=== PATIENT | male | born 1970 | race Caucasian/White ===

== ENCOUNTER 2020-11-02 00:43 | Emergency (ER) | payer OTHER, SELFPAY ==
--- NOTE | 2020-11-02 00:57 | ED_ITS ---
HPI - Alcohol General Stated Complaint: etoh Time Seen by Provider: 11/02/20 00:52 Source: EMS Mode of arrival: EMS Limitations: other (Intoxicated) History of Present Illness HPI narrative: Patient was found by the [employer], patient stated that he was waiting for the store to open, which will occur in approximately 8 hours. Patient is intoxicated, was brought to the emergency room by EMS. Patient denies falling, no headache, no injuries. Patient is screaming, belligerent. Related Data Allergies Allergy/AdvReac Type Severity Reaction Status Date / Time No Known Allergies Allergy Verified 11/02/20 01:02 Review of Systems Review of Systems: Yes Other (Uncooperative) [facility] Past Medical History Medical History (Updated 11/02/20 @ 01:01 by Ysabel Burris MD) Acute alcohol intoxication Polysubstance abuse Physical Exam Const: Other: Appearance: Alert. Belligerent, uncooperative Eyes: Pupils equal, round and reactive to light. ENT: Pharynx normal. Neck: Normal inspection. Neck supple. No lymph nodes noted. No crepitus CVS: Normal heart rate and rhythm. Pulses normal. Normal S1 and S2 Respiratory: No respiratory distress. Breath sounds normal. No Wheezing. No rales Abdomen: Soft and nontender. No rigidity. No distention. good BS x4 Skin: Skin warm and dry. Normal skin color. Normal skin turgor. Extremities: No lower extremity edema.No Lacerations. No Rash Neuro: Cranial nerves grossly 2-12 intact No motor deficit. No sensory deficit. Moving all extermities. No slurred speech. Course Course Course Narrative: Patient trying to light cigarettes in his room, combative because he was told that he can not smoke in his room or hospital property. Patient is unwilling to change management specialist to hospital clothes, when patient was walked to the bathroom, he was pulling heroin bundles out of his pants. Patient yelling screaming, being very belligerent to staff and security. Patient wanting to leave. Discussed with the patient that he can stay here and sleep until he is sober versus being discharged with police department. Patient continues being belligerent, uncooperative, PD was called Discharge Plan Discharge Clinical Impression: Alcohol intoxication Patient Disposition: Xfer Other Transfer Details: Discharge with police department Instructions: Abuse of Alcohol (ED) Additional Instructions: Please follow-up with your primary care physician tomorrow. If you have any worsening or new symptoms, please return to the emergency room or call 911
[2020-11-02 01:02] VITALS: BP 95/55; PULSE 77; RESP 18; O2SAT 99; BMI 24.0
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
--- NOTE | 2020-11-02 01:31 | PC.NURSE ---
pt combative on arrival, deemed medically stable and dc to police department d/t verbal aggression and lack of medical needs
== END 2020-11-02 01:18 | disposition other institution (70) ==
LOC: HO.ED 01:06
PROVIDERS: Emergency Provider Emergency Medicine
DX: F10.129 Alcohol abuse with intoxication, unspecified (principal); Y90.9 Presence of alcohol in blood, level not specified; F17.210 Nicotine dependence, cigarettes, uncomplicated; Z71.6 Tobacco abuse counseling; Z79.899 Other long term (current) drug therapy
CPT/HCPCS: 99282

== ENCOUNTER 2020-11-02 17:48 | Emergency (ER) | payer OTHER, SELFPAY ==
[2020-11-02 17:51] VITALS: BP 103/66; PULSE 81; RESP 16; O2SAT 95; BMI 23.6
[2020-11-02 18:46] LABS: COVID-19 Test Negative (Negative)
--- NOTE | 2020-11-02 18:49 | MHC.CARE ---
CARE team consult received for suicidal ideation. Pt has [facility] and will need to be referred to [facility] crisis. If [facility] is unable to send a clinician to complete the assessment, CARE team will assume management of the case. ED physician and pod nurse are aware.
[2020-11-02 18:55] LABS: Amphetamine Screen Urine Not Detected (Not Detect); Barbiturates, Urine Not Detected (Not Detect); Benzodiazepines Screen Urine POSITIVE (Not Detect); Cannabinoid Screen Urine Not Detected (Not Detect); Cocaine Screen Urine POSITIVE (Not Detect); Fentanyl, urine POSITIVE (Not Detect); Opiate Screen Urine POSITIVE (Not Detect); Phencyclidine Screen Urine Not Detected (Not Detect)
--- NOTE | 2020-11-02 19:09 | PC.NURSE ---
Crisis consult submitted. Pending [facility] consult.
--- NOTE | 2020-11-02 19:57 | ED.PSYCH ---
HPI - Psych General Chief Complaint: Psychiatric Symptoms Stated Complaint: SI Time Seen by Provider: 11/02/20 18:44 Source: patient Mode of arrival: ambulatory Limitations: no limitations History of Present Illness HPI Narrative: Patient was seen earlier for anxiety and depression went home says that he lost his ID and food stamp card stressed out , was found cutting his left forearm with scissors in the main lobby. Patient is stressed out and is not thinking straight, earlier patient was seen here for ETOH Related Data Home Medications Medication Instructions Recorded Confirmed fluoxetine 20 mg capsule 1 cap PO QAM 11/02/20 11/02/20 quetiapine 100 mg tablet 1 tab PO BEDTIME 11/02/20 11/02/20 Allergies Allergy/AdvReac Type Severity Reaction Status Date / Time No Known Allergies Allergy Verified 11/02/20 01:02 Review of Systems Review of Systems: Yes all other systems are reviewed and are negative [facility] Past Medical History Medical History Acute alcohol intoxication Polysubstance abuse Social History Social History Advance Directives: No Advance Directives Information Provided: No Physical Exam Vital Signs: Vital Signs: Last Vital Signs Temp 98.2 F 11/02/20 22:30 Pulse 80 11/02/20 22:30 Resp 18 11/02/20 22:30 BP 102/76 11/02/20 22:30 Pulse Ox 97 11/02/20 22:30 Body Mass Index 23.6 Appearance: Alert. Oriented X3. No acute distress. Anxious Eyes: PERRLA, No Nystagmus ENT: Pharynx normal. Oral Mucosa moist Neck: Normal inspection. Neck supple. CVS: Normal heart rate and rhythm. Pulses normal. Respiratory: No respiratory distress. Equal air entry bilateral, no wheezing/rales/rhonchi Abdomen: Soft and nontender. Bowel sounds are present, no mass palpable, no CVA tenderness Skin: Skin warm and dry. Normal skin color. Normal skin turgor. Extremities: No lower extremity edema. No calf tenderness superficial linear abrasions on the left forearm Neuro: Oriented X 3. No motor deficit. No sensory deficit.No cerebellar signs , cranial nerves II-XII intact MDM - Psych MDM Narrative Medical decision making narrative: Patient with substance abuse depression suicidal ideation will consult crisis to evaluate Lab Data Attestation: I reviewed the patient's lab results. Labs: Lab Results 11/02/20 11/02/20 Range/Units 18:23 18:24 Urine Opiates Screen POSITIVE H (Not Detect) Urine Fentanyl Screen POSITIVE H (Not Detect) Ur Barbiturates Screen Not Detected (Not Detect) Ur Phencyclidine Scrn Not Detected (Not Detect) Ur Amphetamines Screen Not Detected (Not Detect) U Benzodiazepines Scrn POSITIVE H (Not Detect) Urine Cocaine Screen POSITIVE H (Not Detect) U Marijuana (THC) Screen Not Detected (Not Detect) COVID-19 (YUNIOR) Negative (Negative) COVID-19 Clin Com See Note Discharge Plan Discharge Clinical Impression: Polysubstance abuse, Suicidal ideation Depression Qualifiers: Depression Type: major depressive disorder Major depression recurrence: recurrent Active/Remission status: currently active Major depression episode severity: moderate Qualified Code(s): F33.1 - Major depressive disorder, recurrent, moderate Prescriptions: No Action quetiapine 100 mg tablet 1 tab PO BEDTIME RF: 0 fluoxetine 20 mg capsule 1 cap PO QAM RF: 0
--- NOTE | 2020-11-02 20:54 | PC.NURSE ---
Patient sleeping in NAD, breathing even and unlabored. 1 to 1 at bedside. Pending crisis consult.
[2020-11-02 21:04] VITALS: RESP 16
[2020-11-02 22:30] VITALS: BP 102/76; PULSE 80; RESP 18; TEMP 36.8; O2SAT 97
[2020-11-03 03:14] VITALS: BP 105/59; PULSE 62; RESP 16; O2SAT 98
--- NOTE | 2020-11-03 06:42 | PC.NURSE ---
Patient slept well, no distress observed/reported, patient is being observed on 1:1 for safety, N completed assessment, patient was compliant, disposition per [facility] is d/c in the morning, will continue to monitor.
== END 2020-11-03 07:11 | disposition home or self-care (01) ==
PROVIDERS: Emergency Provider Internal Medicine
DX: F33.1 Major depressive disorder, recurrent, moderate (principal); R45.851 Suicidal ideations; Z20.822 Contact with and (suspected) exposure to COVID-19; Z79.899 Other long term (current) drug therapy
CPT/HCPCS: 36415; 80307; 87635; 99284

== ENCOUNTER 2020-12-27 20:37 | Emergency (ER) | payer OTHER, SELFPAY ==
[2020-12-27 20:46] VITALS: BP 124/87; BP 125/76; PULSE 68; PULSE 70; O2SAT 96; O2SAT 97; BMI 25.7
[2020-12-27] MEDS: Naloxone HCl Nasal 4 MG SPRAY NOSTRILALT (20:56)
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
[2020-12-27 22:10] VITALS: O2SAT 97
--- NOTE | 2020-12-27 22:10 | PC.NURSE ---
PT CONTINUES TO YELL ABOUT NOT HAVING ANY FUCKING MONEY TO DO LAUNDRY AND EAT . pt broke O2 probe.
--- NOTE | 2020-12-27 22:19 | ED.GENADULT ---
HPI - General Adult General Chief complaint: ETOH/Substance Use Stated complaint: heroin use Time Seen by Provider: 12/27/20 20:49 Source: patient and EMS Mode of arrival: EMS History of Present Illness HPI narrative: 50-year-old male with a past medical history of anxiety/depression, substance abuse, BIBA after being found on [address] in [place] s/p snorting 2 bags of heroin, taking 10 mg of Klonopin, 20 mg of methadone. 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 Patient denies SI/HI Onset (ago): hour(s) Related Data Home Medications Medication Instructions Recorded Confirmed fluoxetine 20 mg capsule 1 cap PO QAM 11/02/20 11/02/20 quetiapine 100 mg tablet 1 tab PO BEDTIME 11/02/20 11/02/20 Allergies Allergy/AdvReac Type Severity Reaction Status Date / Time No Known Allergies Allergy Verified 11/02/20 01:02 Review of Systems Review of Systems: Constitutional: No Fever, No Chills, No Fatigue, No Malaise ENT/Mouth: No Ear Pain, No Nasal Congestion, No sore throat Eyes: No Eye Pain, No Swelling Cardiovascular: No Chest Pain, No SOB Respiratory: No Cough, No Dyspnea Gastrointestinal: No Nausea, No Vomiting, No Diarrhea, No Constipation, No Abdominal pain Musculoskeletal: No joint pain, No Myalgias, No Joint Swelling Skin: No Skin Lesions, No rash Neuro: No Weakness, No Headache Psych: No Anxiety/Panic, No Depression, No SI/HI Yes all other systems are reviewed and are negative [facility] Past Medical History Attestation statement: The following information was validated with the patient. Medical History Acute alcohol intoxication Polysubstance abuse Social History Social History Alcohol intake: current Alcohol intake frequency: a few times a week Patient Tobacco Use Status: Current everyday Tobacco user Use of substances other than those prescribed or required for medical reasons: Yes Substance Use Type: Heroin Last Used Substance: Just Prior to Admission Advance Directives: No Advance Directives Information Provided: No Physical Exam Vital Signs: Vital Signs: Last Vital Signs Pulse 68 12/27/20 20:46 BP 125/76 12/27/20 20:46 Pulse Ox 97 12/27/20 22:10 Body Mass Index 25.7 Const: Other: Appears under the influence, lethargic on exam, arousable to voice/touch. General: lethargic and poor hygiene Orientation/consciousness: patient oriented x3 and lethargic HENMT: Head: Yes normal to inspection and Yes atraumatic Ears: hearing grossly normal bilaterally General nose exam: Normal external nose present Face and sinus: Yes normal facial exam Eyes: General: appearance normal, both eyes and all related structures Pupils: Pinpoint pupils bilaterally EOM: EOMs intact bilaterally Neck: Neck: Yes normal visual inspection and Yes no meningeal signs Resp: Effort & Inspection: normal respiratory effort and no respiratory distress Cardio: Rate: regular rate Heart sounds: S1 normal heart sound present and S2 normal heart sound present GI: Inspection: Yes normal to inspection Palpation (GI): Soft to palpation, nontender, no guarding and not rigid Skin: Rashes: no rashes Wounds: no wounds Neuro: General: patient oriented x3, tone normal, moves all extremities and no meningeal signs Extrem: General: Yes normal to inspection Psych: Thought content: suicidality and no homicidality Course Course Course Narrative: -2228--patient remains awake and alert, tolerating p.o. -0019--patient ambulating in the ED with steady gait, safe for discharge at this time Medical Decision Making MDM Narrative Medical decision making narrative: 50-year-old male with a past medical history of anxiety/depression, substance abuse, BIBA after being found on [address] in [place] s/p snorting 2 bags of heroin, taking 10 mg of Klonopin, 20 mg of methadone. On exam appears under the influence, lethargic, arousable to voice however decreased respiratory rate, additional 4 mg of intranasal Narcan given with positive affect. Patient now awake and alert, talking in complete sentences. Will observe and reassess Discharge Plan Discharge Clinical Impression: Polysubstance abuse Heroin overdose Qualifiers: Encounter type: initial encounter Injury intent: accidental or unintentional Qualified Code(s): T40.1X1A - Poisoning by heroin, accidental (unintentional), initial encounter Patient Disposition: Home, Self-Care Instructions: Polysubstance Abuse (ED) Additional Instructions: Do not do drugs or drink alcohol it can kill you Follow up with her doctor Please stay hydrated Prescriptions: No Action quetiapine 100 mg tablet 1 tab PO BEDTIME RF: 0 fluoxetine 20 mg capsule 1 cap PO QAM RF: 0 Referrals: Physician,Unknown J [Primary Care Provider] - 2 days
--- NOTE | 2020-12-28 01:06 | HO.SUDE ---
CARE Team met with pt to offer him a SUDE assessment and information about substance use treatment. Pt agreed to the SUDE assessment, but he was not able to participate in SUDE as he was intoxicated and struggled to answer the questions asked.Pt's altered mental status prevented CARE Team from completing SUDE. Pt was provided list of local detoxes and their contact information.
== END 2020-12-28 01:04 | disposition home or self-care (01) ==
PROVIDERS: Emergency Provider Internal Medicine
DX: T40.1X1A Poisoning by heroin, accidental (unintentional), initial encounter (principal); F11.19 Opioid abuse with unspecified opioid-induced disorder; F17.200 Nicotine dependence, unspecified, uncomplicated; Y92.9 Unspecified place or not applicable; Z79.899 Other long term (current) drug therapy; Z71.6 Tobacco abuse counseling
CPT/HCPCS: 99284

== ENCOUNTER 2021-02-07 18:56 | Emergency (ER) | payer OTHER, SELFPAY ==
[2021-02-07 19:16] VITALS: BP 96/62; PULSE 71; RESP 14; TEMP 36.8; O2SAT 100; BMI 23.6
--- NOTE | 2021-02-07 19:19 | ED_ITS ---
HPI - Overdose General Chief Complaint: Overdose Stated Complaint: overdose Time Seen by Provider: 02/07/21 19:14 Source: patient and EMS Mode of arrival: EMS Limitations: no limitations History of Present Illness HPI Narrative: 50-year-old male with history of drug [place] to him unconscious, patient was given 2 mg of nasal Narcan patient responded to it. Patient emergency department admitted to using few bags of heroin by sniffing, no intention to hurt himself no SI or HI, patient also admitted to drinking alcohol with it. Patient declined headache, no neck pain, no chest pain, no abdominal pain. Related Data Home Medications Medication Instructions Recorded Confirmed fluoxetine 20 mg capsule 1 cap PO QAM 11/02/20 11/02/20 quetiapine 100 mg tablet 1 tab PO BEDTIME 11/02/20 11/02/20 Allergies Allergy/AdvReac Type Severity Reaction Status Date / Time No Known Allergies Allergy Verified 11/02/20 01:02 Review of Systems Review of Systems: All other systems are reviewed and are negative Constitutional: Reports as per HPI and Reports no additional constitutional complaints Eyes: Reports as per HPI and Reports no additional eye complaints Reports system reviewed and no additional complaints, except as documented Cardiovascular: Reports as per HPI and Reports no additional cardiovascular complaints Respiratory: Reports as per HPI and Reports no additional respiratory complaints Gastrointestinal: Reports as per HPI and Reports no additional gastrointestinal complaints Genitourinary: Reports no additional female genitourinary complaints Musculoskeletal: Reports no additional musculoskeletal complaints Skin/Breast: Reports system reviewed and no additional complaints, except as docu Psychiatric: Reports no additional psychiatric complaints Endocrine: Reports no additional endocrine complaints Hematologic/Lymphatic: Reports no additional hematologic/lymphatic complaints Allergic/Immunologic: Reports no additional allergic/immunologic complaints Reports system reviewed and no additional complaints, except as documented and Reports Abnormal speech present [facility] Past Medical History Medical History Acute alcohol intoxication Polysubstance abuse Social History Social History Alcohol intake: current Alcohol intake frequency: a few times a week Patient Tobacco Use Status: Current everyday Tobacco user Use of substances other than those prescribed or required for medical reasons: Yes Substance Use Type: Opiates Advance Directives: No Advance Directives Information Provided: Yes Physical Exam Vital Signs: Vital Signs: Last Vital Signs Temp 98.3 F 02/07/21 19:16 Pulse 71 02/07/21 19:16 Resp 14 02/07/21 19:16 BP 96/62 02/07/21 19:16 Pulse Ox 100 02/07/21 19:16 BMI result Body Mass Index 23.6 vital signs have been reviewed as appeared to be correct. Blood pressure normal. Heart rate normal. Respiration rate normal. Temperature normal. Oxygen saturation normal. Appearance: Alert. Oriented X3. No acute distress. Head: Normal external exam. Normocephalic. Atraumatic. No Christine signs noted. No raccoon eyes noted Eyes: PERRLA. EOMI. Conjunctiva and sclera normal. Eyelids normal. Pupil is pinpoint pupil. ENT: TM's Normal. Pharynx normal. Uvula midline. Moist mucous membranes. No trismus noted. No drooling noted. No muffled voice noted. Neck: Normal inspection. Neck supple. FROM. No adenopathy. Thyroid Normal. No meningeal signs. No neck mass noted. CVS: Normal heart rate and rhythm. Heart sound normal. No murmurs noted. Pulses normal throughout. Respiratory: No respiratory distress. Painless inspiration. Breath sounds normal. No wheezes/rales/rhonchi noted. Chest nontender. No accessory muscle usage noted or decreased air movement noted. Abdomen: Soft and nontender. Bowel sounds normal in all 4 quadrants. No distention noted. No organomegaly noted. No visible injury noted. Back: No CVA tenderness. Full range of motion noted. Skin: Skin warm and dry. Normal skin color. Normal skin turgor. No rashes/lesions/lacerations noted. Extremities: No lower extremity edema. Extremities exhibit normal range of motion. Extremities nontender. Neuro: Oriented X 3. Cranial nerve exam: II-XII are grossly intact No motor deficit. No sensory deficit. Reflexes normal. Course Course Course Narrative: Assessment and plan. 50-year-old male presented by ambulance after found unresponsive, patient admitted to using heroin and drinking alcohol, patient responded to Narcan nasally. patient required another 2 mg of Narcan in the emergency department. Patient was monitored in the emergency department . gymnastic coach is talking to the patient. Await for sobriety turn discharged. Reevaluation(s) Reevaluation #1: Care team evaluation is appreciated patient was scheduled to go to rehab, but patient now is refusing going to rehab and wanted to go home. For discharge in the morning. MDM - Overdose Lab Data Labs: Lab Results 02/07/21 02/07/21 Range/Units 20:03 21:54 Urine Opiates Screen POSITIVE H (Not Detect) Urine Fentanyl Screen POSITIVE H (Not Detect) Ur Barbiturates Screen Not Detected (Not Detect) Ur Phencyclidine Scrn Not Detected (Not Detect) Ur Amphetamines Screen Not Detected (Not Detect) U Benzodiazepines Scrn Not Detected (Not Detect) Urine Cocaine Screen POSITIVE H (Not Detect) U Marijuana (THC) Screen Not Detected (Not Detect) COVID-19 (YUNIOR) Negative (Negative) COVID-19 Clin Com See Note Discharge Plan Discharge Clinical Impression: Acute alcohol intoxication, Polysubstance abuse, Accidental heroin overdose Patient Disposition: Home, Self-Care Instructions: Polysubstance Abuse (ED) Prescriptions: No Action quetiapine 100 mg tablet 1 tab PO BEDTIME RF: 0 fluoxetine 20 mg capsule 1 cap PO QAM RF: 0
[2021-02-07] MEDS: Naloxone HCl Nasal 4 MG SPRAY 2 MG NOSTRILALT (19:29)
--- NOTE | 2021-02-07 19:37 | HO.SUDE ---
CARE Team met with pt to offer SUDE. Pt's altered mental status prevented CARE Team from conducting a SUDE at this time.
[2021-02-07 20:31] LABS: COVID-19 Test Negative (Negative)
--- NOTE | 2021-02-07 21:52 | ECG_ITS ---
Test Reason : OVERDOSE Blood Pressure : / mmHG Vent. Rate : 073 BPM Atrial Rate : 073 BPM P-R Int : 118 ms QRS Dur : 090 ms QT Int : 390 ms P-R-T Axes : 070 089 046 degrees QTc Int : 429 ms Sinus rhythm with occasional Premature ventricular complexes Otherwise normal ECG No previous ECGs available Referred By: Christian Bolton Electronically Signed By:Andrés Carreno
[2021-02-07 22:15] LABS: Amphetamine Screen Urine Not Detected (Not Detect); Barbiturates, Urine Not Detected (Not Detect); Benzodiazepines Screen Urine Not Detected (Not Detect); Cannabinoid Screen Urine Not Detected (Not Detect); Cocaine Screen Urine POSITIVE (Not Detect); Fentanyl, urine POSITIVE (Not Detect); Opiate Screen Urine POSITIVE (Not Detect); Phencyclidine Screen Urine Not Detected (Not Detect)
--- NOTE | 2021-02-07 22:56 | MHC.CARE ---
Pt informed disaster recovery manager Kristian that he was interested in detox. Kristian located a bed [facility] and asked CARE Team to facilitate tranfer of pt to detox. CARE Team met with pt to provide him with [employer] information and pt denied wanting detox. CARE Team cancelled the [employer] and contacted [facility] to let them know pt would not be coming tonight.
--- NOTE | 2021-02-08 01:28 | PC.NURSE ---
The pt had been sleeping in a hallway stretcher with continuous pulse Ox monitoring being performed with room air sats maintained at 95% or better. The pt woke periodically to request PO food and fluids and to use the bathroom - he ambulated to the bathroom across from bed 7 from his hallway stretcher outside of bed 10, and back to his stretcher, independently and with steady gait.The plan was to get the pt to a detox bed at [facility] (unsure f this is the correct name/spelling) and intially the pt agreed to this but eventually decided he did not want to go to detox. Eventually the plan became to allow the pt to sleep, per MD Saravia, in the ED until morning when he would be discharged. However, the pt got OOB and ambulated throughout the hospital - I did not witness him getting OOB and leaving the department. He was found by hospital staff in the ICU and was promptly escorted out of the hospital by security. Manjit MACIAS aware and states pt can be D/C'd.
== END 2021-02-08 01:00 | disposition home or self-care (01) ==
LOC: HO.ED 20:05
PROVIDERS: Emergency Provider Emergency Medicine; PCP Internal Medicine
DX: T40.1X1A Poisoning by heroin, accidental (unintentional), initial encounter (principal); R40.20 Unspecified coma; F19.10 Other psychoactive substance abuse, uncomplicated; Y92.830 Public park as the place of occurrence of the external cause; F10.929 Alcohol use, unspecified with intoxication, unspecified; Y90.9 Presence of alcohol in blood, level not specified; F17.200 Nicotine dependence, unspecified, uncomplicated; Z20.822 Contact with and (suspected) exposure to COVID-19
CPT/HCPCS: 36415; 80307; 87635; 93005; 99284; 99285

== ENCOUNTER 2021-02-26 14:49 | Emergency (ER) | payer OTHER, SELFPAY ==
--- NOTE | 2021-02-26 14:55 | ED.PSYCH ---
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) Context: recent drug abuse Associated psychiatric symptoms: none Associated symptoms: denies other symptoms Treatments prior to arrival: none Related Data Home Medications Medication Instructions Recorded Confirmed fluoxetine 20 mg capsule 1 cap PO QAM 11/02/20 11/02/20 quetiapine 100 mg tablet 1 tab PO BEDTIME 11/02/20 11/02/20 Allergies Allergy/AdvReac Type Severity Reaction Status Date / Time No Known Allergies Allergy Verified 02/26/21 15:14 Review of Systems Review of Systems: ROS unable to be obtained due to intoxication PMFSH Past Medical History Medical History Acute alcohol intoxication Polysubstance abuse Social History Social History Alcohol intake: current Alcohol intake frequency: a few times a week Patient Tobacco Use Status: Current everyday Tobacco user Substance Use Type: Opiates Physical Exam Vital Signs: Appearance: Somnolent Oriented X2. Mild acute distress. Eyes: Pupils pinpoint ENT: Pharynx normal. Atraumatic Neck: Normal inspection. Neck supple. CVS: Normal heart rate and rhythm. Pulses normal. Respiratory: Mild respiratory distress bradypnea and hypoventilation. Breath sounds diminished Abdomen: Soft and nontender. Skin: Skin warm and dry. Normal skin color. Normal skin turgor. Extremities: No lower extremity edema. No calf ttp Neuro: Oriented X 3. No motor deficit. No sensory deficit. Course Course Course Narrative: signed out to Dr. Lawrence pending observation MDM - Psych MDM Narrative Medical decision making narrative: 50 yo male with opiate use found sleeping outside his dwelling - no narcan by EMS but patient's RR 4 in ED at this time woken with loud verbal stimuli but needs repeat stimuli to wake up. At this time given depressed RR needs reversal, no trauma, no SI reported Discharge Plan Discharge Clinical Impression: Opiate overdose Qualifiers: Encounter type: initial encounter Injury intent: accidental or unintentional Qualified Code(s): T40.601A - Poisoning by unspecified narcotics, accidental (unintentional), initial encounter Prescriptions: No Action quetiapine 100 mg tablet 1 tab PO BEDTIME RF: 0 fluoxetine 20 mg capsule 1 cap PO QAM RF: 0
[2021-02-26] MEDS: Naloxone HCl Nasal 4 MG SPRAY NOSTRILALT (15:06)
[2021-02-26 15:15] VITALS: BP 127/74; BP 128/82; PULSE 76; PULSE 78; RESP 18; TEMP 36.9; O2SAT 100; O2SAT 93; BMI 29.2
[2021-02-26 16:02] VITALS: BP 132/74; PULSE 72; RESP 18; TEMP 36.9; O2SAT 99
--- NOTE | 2021-02-26 16:37 | PC.NURSE ---
pT WAS seen walking out of the ED.
== END 2021-02-26 16:40 | disposition left against medical advice (07) ==
PROVIDERS: Emergency Provider Emergency Medicine Emergency Medical Services
DX: T40.1X1A Poisoning by heroin, accidental (unintentional), initial encounter (principal); Y92.9 Unspecified place or not applicable; F11.19 Opioid abuse with unspecified opioid-induced disorder; Z71.51 Drug abuse counseling and surveillance of drug abuser
CPT/HCPCS: 99283

== ENCOUNTER 2021-03-29 01:50 | Emergency (ER) | payer OTHER, SELFPAY ==
[2021-03-29 02:01] VITALS: BP 105/62; PULSE 78; RESP 20; TEMP 36.4; O2SAT 96; BMI 22.9
--- NOTE | 2021-03-29 02:11 | ED_ITS ---
HPI - Skin/Abscess/Foreign Bdy General Chief complaint: Skin/Abscess/Foreign Body Stated complaint: hives? on body Time Seen by Provider: 03/29/21 01:51 Source: patient Mode of arrival: ambulatory Limitations: no limitations History of Present Illness MD complaint: rash and lesion Onset (ago): week(s) (3) Tetanus up to date: yes Location: generalized, L hand and R hand Severity: moderate Quality: dull, constant and pruritic Pain Consistency: constant Relieving factors: none Exacerbating factors: none Context: other (?unsure initially on hands does have people staying with him at times) Associated symptoms: denies other symptoms Treatments prior to arrival: none Related Data Home Medications Medication Instructions Recorded Confirmed fluoxetine 20 mg capsule 1 cap PO QAM 11/02/20 11/02/20 quetiapine 100 mg tablet 1 tab PO BEDTIME 11/02/20 11/02/20 Previous Rx's Medication Instructions Recorded cephalexin 500 mg capsule 500 mg PO TID 7 Days #21 cap 03/29/21 permethrin 5 % topical cream 1 appl TOPICAL Q14D #60 g 03/29/21 prednisone 20 mg tablet 40 mg PO DAILY 4 Days #8 tab 03/29/21 Allergies Allergy/AdvReac Type Severity Reaction Status Date / Time No Known Allergies Allergy Verified 02/26/21 15:14 Review of Systems Verdana 4l Review of Systems: Verdana 4d Verdana 4d Constitutional : No Fever, No Chills ENT/Mouth : No sore throat, No Rhinorrhea Eyes: No Eye Pain, No Swelling, No Redness Cardiovascular : No Chest Pain, No SOB Respiratory : No Cough, No Sputum Gastrointestinal : No Nausea, No Vomiting, NoNo Diarrhea, No abdominal Pain Genitourinary : No Dysuria, No Hematuria Musculoskeletal : No joint pain, No Myalgias, No Joint Swelling Skin : pos Skin Lesions, positive skin rash Neuro : No Weakness, No Numbness, No Headache Psych : No Anxiety, No Depression PMFSH Past Medical History Attestation statement: The following information was validated with the patient. Medical History Acute alcohol intoxication Polysubstance abuse Social History Social History Alcohol intake: current Alcohol intake frequency: a few times a week Patient Tobacco Use Status: Current everyday Tobacco user Substance Use Type: Opiates Advance Directives: No Advance Directives Information Provided: Yes Physical Exam Verdana 4l Vital Signs: Verdana 4d Verdana 4d Vital Signs: Verdana 4d Verdana 4Bd Last Vital Signs Verdana 4d Slope Hoist Operator New 4d Willy New 4d Temp 97.5 F 03/29/21 02:01 Slope Hoist Operator New 4d Pulse 78 03/29/21 02:01 Slope Hoist Operator New 4d Resp 20 03/29/21 02:01 BP 105/62 03/29/21 02:01 Pulse Ox 96 03/29/21 02:01 BMI result Body Mass Index 22.9 Appearance: Alert. Oriented X3. No acute distress. Eyes: Pupils equal, round and reactive to light. ENT: Pharynx normal. Neck: Normal inspection. Neck supple. CVS: Normal heart rate and rhythm. Pulses normal. Respiratory: No respiratory distress. Breath sounds normal. Abdomen: Soft and nontender. Skin: Both hands red raised patches noted on dorsum and interdigits areas as well as on forearms and trunk / LE that appear excoriated, no fluctuance no warmth, coalexced area on dorsum R hand but no abscess noted no vesicles noted Extremities: No lower extremity edema. Neuro: Oriented X 3. No motor deficit. No sensory deficit. MDM - Skin/Abscess/Foreign Bdy MDM Narrative Medical decision making narrative: 50 yo male with hx of substance abuse comes in with 3 week of pruritic rash worse - initially on hands now spread up to trunk ?scabies then reaction at this time no signs of vesicles will start on steroids and permethrin as well as cephalexin for possible mild secondary cellulitis noted on dorsum of R hand Discharge Plan Discharge Clinical Impression: Contact dermatitis Qualifiers: Contact dermatitis type: unspecified Contact dermatitis trigger: unspecified trigger Qualified Code(s): L25.9 - Unspecified contact dermatitis, unspecified cause Patient Disposition: Home, Self-Care Instructions: Contact Dermatitis (ED), Scabies (ED) Additional Instructions: return to ED for any worsening symptoms or concerns Prescriptions: New prednisone 20 mg tablet 40 mg PO DAILY 4 Days Qty: 8 0RF cephalexin 500 mg capsule 500 mg PO TID 7 Days Qty: 21 0RF permethrin 5 % cream 1 appl topical Q14D Qty: 60 0RF Rx Instructions: apply second treatment 14 days after first treatment if live lice remain No Action quetiapine 100 mg tablet 1 tab PO BEDTIME 0RF fluoxetine 20 mg capsule 1 cap PO QAM 0RF Referrals: Physician,Unknown J [Primary Care Provider] - 5 days (if not better)
[2021-03-29] MEDS: cephALEXin 500 MG CAPSULE PO (02:50)
[2021-03-29] MEDS: predniSONE 20 MG TABLET 40 MG PO (02:51)
== END 2021-03-29 03:25 | disposition home or self-care (01) ==
PROVIDERS: Emergency Provider Emergency Medicine
DX: L25.9 Unspecified contact dermatitis, unspecified cause (principal); F17.200 Nicotine dependence, unspecified, uncomplicated; Z71.6 Tobacco abuse counseling; Z79.899 Other long term (current) drug therapy
CPT/HCPCS: 99283

== ENCOUNTER 2021-04-29 17:33 | Emergency (ER) | payer OTHER, SELFPAY ==
--- NOTE | ~2021-04-29 | CT_ITS ---
EXAMINATION: CT FACIAL BONES WITH CONTRAST CLINICAL INFORMATION: Right-sided facial swelling COMPARISON: None TECHNIQUE: Axial 3 mm thin and reformatted 1.5 minutes thin sagittal and coronal images of facial bones were obtained. This CT examination was performed using dose optimization techniques as appropriate, variously including the following: *Automated exposure control *Adjustment of mA and/or kV according to patient size (this includes techniques or standardized protocols for targeted exams where dose is matched to indication/reason for exam; i.e. extremities or head) *Use of iterative reconstruction technique DLP: 532 mGy-cm FINDINGS: The exam is limited secondary to patient motion. There is no acute maxillofacial fracture. The pterygoid plates are intact. The zygomatic arches are intact. The lamina papyracea are intact. The orbital rims are intact. The paranasal sinuses are well-aerated. No air-fluid levels are seen. There is no deviation of the nasal septum. The ostiomeatal complexes are clear. The lamina papyracea are intact. The ethmoid roofs are symmetric. The carotid canals are normally covered by bone. The moderate sized periapical disease involving the the last molar tooth with central erosion of the tooth. There is moderate right maxillary and mandibular soft tissue swelling/edema. In addition there is moderate hypodensity/soft tissue edema along the buccal and alveolar space along the right mandible. [place] forming abscess should be considered. There are reactive right neck lymph nodes in the submandibular space as well as level 3 4 and 5. The mastoid air cells and visualized middle ear cavities are well-aerated. The orbits are normal. The TMJs are unremarkable. The imaged portions of the brain demonstrate no acute abnormality. CT/CT facial bones w con IMPRESSION: There is a right buccal and right alveolar mandibular fluid collection secondary to periapical disease involving the right last molar tooth and erosion of the tube. Abscess should be considered in the differential. Reactive right neck lymph nodes
--- NOTE | 2021-04-29 18:36 | ED.GENADULT ---
HPI - General Adult General Chief complaint: Dental/Oral Stated complaint: absess? on bottom right jaw, some pain Time Seen by Provider: 04/29/21 18:36 Source: patient Mode of arrival: ambulatory Limitations: no limitations History of Present Illness HPI narrative: Patient is a 50 year old male presenting to the emergency department today with right jaw pain. Patient states that he noticed the swelling of the right jaw 2 days ago and it has gotten progressively worse. Patient states that he does abuse heroin and has an active case of scabies. Patient denies any dizziness, lightheadedness, abdominal pain, nausea, vomiting, fever, chills, blurry vision, double vision, loss of vision, chest pain, difficulty breathing, shortness of breath, back pain, night sweats, pain with urination, increased urinary frequency, increased urinary urgency, blood in his urine or stool, syncope or a near syncopal episode, recent trauma or falls, bowel incontinence, bladder incontinence, bowel retention, bladder retention, or any other complaints at this time. Related Data Home Medications Medication Instructions Recorded Confirmed No Known Home Meds 04/29/21 04/29/21 Allergies Allergy/AdvReac Type Severity Reaction Status Date / Time No Known Allergies Allergy Verified 02/26/21 15:14 Review of Systems Constitutional: Constitutional: Reports no additional constitutional complaints, Denies chills, Denies fever(s) and Denies night sweats Eyes: Eyes: Reports no additional eye complaints, Denies blurry vision, Denies change in vision, Denies diplopia, Denies eye discharge, Denies loss of vision and Denies eye pain ENT: Denies dizziness Comments: right sided facial swelling Cardiovascular: Cardiovascular: Reports no additional cardiovascular complaints, Denies chest pain, Denies lightheadedness, Denies Loss of Consciousness and Denies dyspnea Respiratory: Respiratory: Reports no additional respiratory complaints and Denies dyspnea Gastrointestinal: Gastrointestinal: Reports no additional gastrointestinal complaints, Denies abdominal pain, Denies melena, Denies hematochezia, Denies change in bowel habits and Denies change in stool character Genitourinary: Genitourinary: Reports no additional male genitourinary complaints, Denies hematuria, Denies oliguria, Denies difficulty urinating, Denies dysuria, Denies urinary frequency, Denies urinary hesitancy, Denies urinary incontinence and Denies urinary urgency Musculoskeletal: Musculoskeletal: Reports no additional musculoskeletal complaints, Denies numbness and Denies tingling Neurologic: Denies dizziness, Denies loss of vision, Denies numbness and Denies tingling Psychiatric: Psychiatric: Reports no additional psychiatric complaints Endocrine: Endocrine: Reports no additional endocrine complaints Hematologic/Lymphatic: Hematologic/Lymphatic: Reports no additional hematologic/lymphatic complaints Allergic/Immunologic: Allergic/Immunologic: Reports no additional allergic/immunologic complaints PMFSH Past Medical History Attestation statement: The following information was validated with the patient. Source: old records reviewed Medical History Acute alcohol intoxication Polysubstance abuse Social History Social History Alcohol intake: current Alcohol intake frequency: a few times a week Patient Tobacco Use Status: Current everyday Tobacco user Substance Use Type: Opiates Advance Directives: No Advance Directives Information Provided: No Physical Exam ED Vital Signs: Vital Signs - 24 hr 04/29/21 18:39 04/29/21 21:26 Temperature 99.5 F 98.1 F Pulse Rate 78 81 Respiratory Rate 17 18 Blood Pressure 130/71 127/77 Pulse Oximetry 97 95 BMI result Body Mass Index 20.2 Const General: cooperative, no acute distress, alert and awake Nutritional Appearance: well nourished Orientation/consciousness: patient oriented x3 Limitations: no limitations HENMT Other: significant swelling to the right side of the jaw/facial cheek inclduing mucous membranes Head: Yes atraumatic Ears: hearing grossly normal bilaterally and external ears normal General nose exam: Normal external nose present, no nasal discharge noted and no epistaxis Face and sinus: No abrasion and No laceration Mouth: no drooling and no muffled voice Teeth image: 1. Dental caries with surround erythema and swelling Eyes General: appearance normal, both eyes and all related structures Periorbital: periorbital findings normal Eyelids: Yes eyelids normal Conjunctivae: conjunctivae normal Pupils: Equal, round and reactive pupils present EOM: EOMs intact bilaterally Neck Neck: Yes normal visual inspection, Yes full ROM and Yes no lymphadenopathy Chest Chest palpation & inspection: normal inspection of the chest Resp Effort & Inspection: normal respiratory effort and able to speak in complete sentences Auscultation: clear to auscultation bilaterally Cardio Rate: regular rate Rhythm: regular rhythm GI Inspection: Yes normal to inspection Neuro General: patient oriented x3 and moves all extremities Cranial nerves: Yes Equal, round and reactive pupils present Cognition (Neuro): normal cognition Motor exam (neuro): 5/5 motor strength present throughout Sensory Exam: Normal double simultaneous stimulation for sensation Coordination: [id number] test normal Extrem General: Yes normal to inspection, Yes full ROM and Yes capillary refill normal Psych Appearance: grossly normal Mental Status: mental status grossly normal Affect: normal affect Attitude: cooperative Thought process: Normal thought process present Thought content: Normal thought content present Insight: Good insight present (Psych) Medical Decision Making MDM Narrative Medical decision making narrative: Patient is a 50 year old male presenting to the emergency department today with a right sided facial/dental abscess. Patient's physical exam showed significant swelling to the right cheek and dental caries. Patient's blood work was unremarkable. Patient's facial CT showed right buccal and right alveolar mandibular fluid collection secondary to periapical disease involving the right last molar tooth and erosion of the tube. I explained my physical exam findings as well as all test results to the patient. I answered all questions asked by the patient. Patient received IV ABX and had his abscess opened by my attending physician, Dr. Webb. I stressed the importance of the patient taking his medication as prescribed. I stressed the importance of the patient following up with his primary care provider and a dentist. I stressed the importance of the patient returning to the emergency department immediately if his symptoms were to worsen or if he were to develop any dizziness, shortness of breath, difficulty breathing, chest pain, blurry vision, loss of vision, nausea, vomiting, abdominal pain, fever, chills, back pain, or any other complaints. Patient verbalized agreement and understanding with this treatment plan and discharge. Differential Diagnosis Differential Diagnosis: dental abscess, facial cellulitis Medical Records Medical records reviewed: Yes I reviewed the patient's medical records. Lab Data Lab results reviewed: Yes I reviewed the patient's lab results. Result diagrams: 04/29/21 19:07 04/29/21 19:07 Labs: Lab Results 04/29/21 04/29/21 04/29/21 Range/Units 19:07 19:07 19:07 WBC 10.7 (4.8-10.8) X10*3/uL RBC 4.36 L (4.60-5.80) X10*6/uL Hgb 13.0 L (14.0-18.0) g/dl Hct 38.7 L (42.0-52.0) % MCV 88.8 (80.0-98.0) fL MCH 29.8 (27.0-33.0) pg MCHC 33.6 (31.0-36.0) g/dl RDW 12.6 (11.0-16.0) % Plt Count 221 (160-400) X10*3/uL MPV 8.8 L (9.4-12.4) fL Immature Gran % (Auto) 0.3 (0.0-0.4) % Neut % (Auto) 79.5 H (45-73) % Lymph % (Auto) 10.9 L (20-40) % [place] % (Auto) 8.9 (2-11) % Eos % (Auto) 0.1 (0-4) % Baso % (Auto) 0.3 (0-2) % Lymph # (Auto) 1.2 (1.2-4.9) X10*3/uL [place] # (Auto) 1.0 (0.1-1.2) X10*3/uL Eos # (Auto) 0.0 (0.0-0.4) X10*3/uL Baso # (Auto) 0.0 (0.0-0.2) X10*3/uL Abs Immat Gran (auto) 0.03 (0.00-0.03) X10*3/uL Absolute Neuts (auto) 8.5 H (2.0-8.3) x10*3/uL Absolute Nucleated RBC 0.000 (0.0-0.012) X10*3/uL Nucleated RBC % (auto) 0.0 (0.0-0.2) /100WBC Sodium 139 (135-145) mmol/L Potassium 4.2 (3.3-5.1) mmol/L Chloride 99 (96-108) mmol/L Carbon Dioxide 32 H (22-29) mmol/L Anion Gap 12 (12-20) BUN 16 (9-16) mg/dL Creatinine 1.04 (0.5-1.4) mg/dL Estim Creat Clear Calc 77.5 Estimated GFR > 60 Random Glucose 148 H (60-115) mg/dL Lactic Acid (0.5-2.0) mmol/L Calcium 9.0 (8.4-10.2) mg/dL Magnesium 2.2 (1.6-2.6) mg/dL Total Bilirubin 0.5 (0.0-1.0) mg/dL AST 15 (5-37) U/L ALT 11 (0-40) U/L Alkaline Phosphatase 79 (39-117) U/L Total Protein 6.6 (6.5-8.0) g/dL Albumin 3.9 (3.5-5.0) g/dL Urine Color Urine Appearance Urine pH (5.0-8.0) Ur Specific Russell (1.005-1.025) Urine Protein (NEG-TRACE) MG/DL Urine Glucose (UA) (NEG) MG/DL Urine Ketones (NEG) MG/DL Urine Blood (NEG) Urine Nitrite (NEG) Ur Leukocyte Esterase (NEG) Urine RBC (0) /HPF Urine WBC (0-4) /HPF Ur Squamous Epith Cells /LPF Urine Bacteria /LPF Urine Mucus /LPF Urine Opiates Screen (Not Detect) Urine Fentanyl Screen (Not Detect) Ur Barbiturates Screen (Not Detect) Ur Phencyclidine Scrn (Not Detect) Ur Amphetamines Screen (Not Detect) U Benzodiazepines Scrn (Not Detect) Urine Cocaine Screen (Not Detect) U Marijuana (THC) Screen (Not Detect) Ethyl Alcohol < 10 mg/dL 04/29/21 04/29/21 04/29/21 Range/Units 19:08 20:01 20:01 WBC (4.8-10.8) X10*3/uL RBC (4.60-5.80) X10*6/uL Hgb (14.0-18.0) g/dl Hct (42.0-52.0) % MCV (80.0-98.0) fL MCH (27.0-33.0) pg MCHC (31.0-36.0) g/dl RDW (11.0-16.0) % Plt Count (160-400) X10*3/uL MPV (9.4-12.4) fL Immature Gran % (Auto) (0.0-0.4) % Neut % (Auto) (45-73) % Lymph % (Auto) (20-40) % [place] % (Auto) (2-11) % Eos % (Auto) (0-4) % Baso % (Auto) (0-2) % Lymph # (Auto) (1.2-4.9) X10*3/uL [place] # (Auto) (0.1-1.2) X10*3/uL Eos # (Auto) (0.0-0.4) X10*3/uL Baso # (Auto) (0.0-0.2) X10*3/uL Abs Immat Gran (auto) (0.00-0.03) X10*3/uL Absolute Neuts (auto) (2.0-8.3) x10*3/uL Absolute Nucleated RBC (0.0-0.012) X10*3/uL Nucleated RBC % (auto) (0.0-0.2) /100WBC Sodium (135-145) mmol/L Potassium (3.3-5.1) mmol/L Chloride (96-108) mmol/L Carbon Dioxide (22-29) mmol/L Anion Gap (12-20) BUN (9-16) mg/dL Creatinine (0.5-1.4) mg/dL Estim Creat Clear Calc Estimated GFR Random Glucose (60-115) mg/dL Lactic Acid 1.6 (0.5-2.0) mmol/L Calcium (8.4-10.2) mg/dL Magnesium (1.6-2.6) mg/dL Total Bilirubin (0.0-1.0) mg/dL AST (5-37) U/L ALT (0-40) U/L Alkaline Phosphatase (39-117) U/L Total Protein (6.5-8.0) g/dL Albumin (3.5-5.0) g/dL Urine Color YELLOW Urine Appearance CLEAR Urine pH 5.5 (5.0-8.0) Ur Specific Russell 1.025 (1.005-1.025) Urine Protein NEG (NEG-TRACE) MG/DL Urine Glucose (UA) NEG (NEG) MG/DL Urine Ketones NEG (NEG) MG/DL Urine Blood 1+ H (NEG) Urine Nitrite NEG (NEG) Ur Leukocyte Esterase NEG (NEG) Urine RBC 0-2 (0) /HPF Urine WBC 0-2 (0-4) /HPF Ur Squamous Epith Cells TRACE /LPF Urine Bacteria NONE /LPF Urine Mucus TRACE /LPF Urine Opiates Screen POSITIVE H (Not Detect) Urine Fentanyl Screen POSITIVE H (Not Detect) Ur Barbiturates Screen Not Detected (Not Detect) Ur Phencyclidine Scrn Not Detected (Not Detect) Ur Amphetamines Screen Not Detected (Not Detect) U Benzodiazepines Scrn Not Detected (Not Detect) Urine Cocaine Screen POSITIVE H (Not Detect) U Marijuana (THC) Screen POSITIVE H (Not Detect) Ethyl Alcohol mg/dL Imaging Data CT - facial: Attestation: I personally reviewed and interpreted this imaging study as follows: Radiologist's impression: EXAMINATION: CT FACIAL BONES WITH CONTRAST CLINICAL INFORMATION: Right-sided facial swelling? COMPARISON: None? TECHNIQUE: Axial 3 mm thin and reformatted 1.5 minutes thin sagittal and coronal images of facial bones were obtained.? This CT examination was performed using dose optimization techniques as appropriate, variously including the following: *Automated exposure control *Adjustment of mA and/or kV according to patient size (this includes techniques or standardized protocols for targeted exams where dose is matched to indication/reason for exam; i.e. extremities or head) *Use of iterative reconstruction technique DLP: 532 mGy-cm FINDINGS: The exam is limited secondary to patient motion. There is no acute maxillofacial fracture. The pterygoid plates are intact. The zygomatic arches are intact. The lamina papyracea are intact. The orbital rims are intact. The paranasal sinuses are well-aerated. No air-fluid levels are seen. There is no deviation of the nasal septum. The ostiomeatal complexes are clear. The lamina papyracea are intact. The ethmoid roofs are symmetric. The carotid canals are normally covered by bone. The moderate sized periapical disease involving the the last molar tooth with central erosion of the tooth. There is moderate right maxillary and mandibular soft tissue swelling/edema. In addition there is moderate hypodensity/soft tissue edema along the buccal and alveolar ?space along the right mandible. [place] forming abscess should be considered. There are reactive right neck lymph nodes in the submandibular space as well as level 3 4 and 5. The mastoid air cells and visualized middle ear cavities are well-aerated. The orbits are normal. The TMJs are unremarkable. The imaged portions of the brain demonstrate no acute abnormality. CT/CT facial bones w con IMPRESSION: There is a right buccal and right alveolar mandibular? fluid collection secondary to periapical disease involving the right last molar tooth and erosion of the tube. Abscess should be considered in the differential. ? Reactive right neck lymph nodes Dictated By: Kwadwo Cordova MD Signed By: Electronically signed by Kwadwo Cordova MD 04/29/212110 Discharge Plan Discharge Clinical Impression: Abscess, dental, Cellulitis of face Patient Disposition: Home, Self-Care Instructions: Dental Abscess (ED), Cellulitis (DC) Additional Instructions: Return to the emergency department immediately if your symptoms worsen or if you develop any dizziness, shortness of breath, difficulty breathing, chest pain, blurry vision, loss of vision, nausea, vomiting, abdominal pain, fever, chills, back pain, or any other complaints. Call to discuss finding and establishing with a primary care provider. Call or visit any of the clinics below to establish with a dentist: [facility] [address] [place] [address] [facility] [address] [facility], [address] Deangelo Ferrer [address] [place] [id number] [facility] [address] [place] [id number] [facility] [address] [place] [address] [place] [address] [place] [address] Prescriptions: No Action No Known Home Meds 0RF Print Language: Armenian
[2021-04-29 18:39] VITALS: BP 130/71; PULSE 78; RESP 17; TEMP 37.5; O2SAT 97; BMI 20.2
--- NOTE | 2021-04-29 18:45 | PC.NURSE ---
PT NOTED TO HAVE RASH. STATES HAS SCABIES AND HAS USED THE CREAM TO TREAT IT.
[2021-04-29 19:15] LABS: MANUAL DIFF FLAG NO
[2021-04-29 19:16] LABS: Basophils Percent Auto 0.3 % (0-2); Eosinophils Percent Auto 0.1 % (0-4); Hematocrit 38.7 % (42.0-52.0); Imm Gran Abs Auto 0.03 X10*3/uL (0.00-0.03); Imm Gran Pct Auto 0.3 % (0.0-0.4); Lymphocytes Absolute Auto 1.2 X10*3/uL (1.2-4.9); Lymphocytes Percent Auto 10.9 % (20-40); Mean Corpuscular HGB Conc 33.6 g/dl (31.0-36.0); Mean Corpuscular Hemoglobin 29.8 pg (27.0-33.0); Mean Corpuscular Volume 88.8 fL (80.0-98.0); Mean Platelet Volume 8.8 fL (9.4-12.4); Monocytes Percent Auto 8.9 % (2-11); Neutrophils Absolute Auto 8.5 x10*3/uL (2.0-8.3); Neutrophils Percent Auto 79.5 % (45-73); Platelet Count 221 X10*3/uL (160-400); Red Blood Count 4.36 X10*6/uL (4.60-5.80); Red Cell Distribution Width 12.6 % (11.0-16.0); White Blood Count 10.7 X10*3/uL (4.8-10.8)
[2021-04-29 19:27] LABS: Lactic Acid 1.6 mmol/L (0.5-2.0)
--- NOTE | 2021-04-29 19:31 | MHC.RECOVSUP ---
MET WITH PT. PT. IS HERE FOR ORAL PROBLEM. BUT WE STARTED TO TALK I FOUND OUT THAT HE IS ALSO USING HEROIN TOO. ASKED PT. IF HE WAS INTERESTED IN GOING TO DETOX PT. STATED THAT HE WASN'T INTERESTED RIGHT NOW. GAVE PT. RESOURCES AND INFORMATION
[2021-04-29 19:32] LABS: Alanine Aminotransferase 11 U/L (0-40); Albumin Level 3.9 g/dL (3.5-5.0); Alkaline Phosphatase 79 U/L (39-117); Anion Gap 12 (12-20); Aspartate Amino Transferase 15 U/L (5-37); Bilirubin Total 0.5 mg/dL (0.0-1.0); Blood Urea Nitrogen 16 mg/dL (9-16); Carbon Dioxide 32 mmol/L (22-29); Chloride 99 mmol/L (96-108); Creatinine Clr Calc Pharmacy 77.5; Estimated Glomerular Filt Rate > 60; Glucose Random 148 mg/dL (60-115); Potassium 4.2 mmol/L (3.3-5.1); Sodium 139 mmol/L (135-145); Total Protein 6.6 g/dL (6.5-8.0)
[2021-04-29 19:51] LABS: Ethanol < 10 mg/dL
[2021-04-29] MEDS: iohexoL 350 MG/ML 100 ML INFUS..BTL IV (19:52)
[2021-04-29 19:53] LABS: Magnesium 2.2 mg/dL (1.6-2.6)
[2021-04-29] MEDS: Diphth,Pertus(ACell),Tet Adult 0.5 ML SYRINGE IM (19:59)
[2021-04-29 20:16] LABS: Appearance Urine CLEAR; Color Urine YELLOW; Glucose Urine UA NEG (NEG); Leukocyte Esterase Urine NEG (NEG); Nitrite Urine NEG (NEG); PH 5.5 (5.0-8.0); Specific Gravity - Urine 1.025 (1.005-1.025); Urine Blood 1+ (NEG); Urine Ketones NEG (NEG); Urine Protein NEG (NEG-TRACE)
[2021-04-29 20:27] LABS: Amphetamine Screen Urine Not Detected (Not Detect); Barbiturates, Urine Not Detected (Not Detect); Benzodiazepines Screen Urine Not Detected (Not Detect); Cannabinoid Screen Urine POSITIVE (Not Detect); Cocaine Screen Urine POSITIVE (Not Detect); Fentanyl, urine POSITIVE (Not Detect); Opiate Screen Urine POSITIVE (Not Detect); Phencyclidine Screen Urine Not Detected (Not Detect)
[2021-04-29 20:31] LABS: Mucus Urine TRACE /LPF; RBC Urine 0-2 /HPF (0); Squamous Epithelial Cell Urine TRACE /LPF; WBC Urine 0-2 /HPF (0-4)
[2021-04-29 21:26] VITALS: BP 127/77; PULSE 81; RESP 18; TEMP 36.7; O2SAT 95
--- NOTE | 2021-04-29 21:34 | PC.NURSE ---
[facility] PT TX LINE CALLED AT REQUEST OF AMANDA PINO @ THIS TIME GIGI ANSWERS AND TAKES PT INFO THEN ASKS TO SPEAK WITH ALVAREZ PINO TAKES OVER CALL RIGHT AWAY
--- NOTE | 2021-04-29 21:36 | PHA.MEDREC ---
Pharmacy Consult ? Medication Reconciliation Pharmacy has completed the medication reconciliation. Patient completed scabies treatment. Thanks Jordy Bamu
[2021-04-29] MEDS: Piperacillin Sodium/Tazobactam 3.375 GM in 0.9 % Sodium Chloride 50 ML IV (22:14)
[2021-04-29] MEDS: vancomycin HCL 1,000 MG in 0.9 % Sodium Chloride 250 ML 270 MG IV (22:47)
[2021-04-30 00:15] VITALS: BP 140/71; PULSE 75; RESP 17; TEMP 38.1; O2SAT 97
--- NOTE | 2021-04-30 00:16 | PC.NURSE ---
TEMP 100.[address] CASTILLO AWARE. OK TO GIVE TYLENOL AND DISCHARGE.
[2021-04-30] MEDS: Acetaminophen 325 MG TABLET 650 MG PO (00:23)
== END 2021-04-30 00:45 | disposition home or self-care (01) ==
PROVIDERS: Physician Assistant Medical; Emergency Provider Internal Medicine
DX: K12.2 Cellulitis and abscess of mouth (principal); K04.7 Periapical abscess without sinus; K02.9 Dental caries, unspecified; R68.84 Jaw pain; F19.10 Other psychoactive substance abuse, uncomplicated; F17.200 Nicotine dependence, unspecified, uncomplicated
CPT/HCPCS: 36415; 70487; 80053; 80307; 81001; 82077; 83605; 83735; 85025; 87040; 90471; 90715; 96365; 96375; 99284; J2543; J3370; Q9967

== ENCOUNTER 2021-08-30 21:21 | Emergency (ER) | payer OTHER, SELFPAY ==
[2021-08-30 21:33] VITALS: BP 118/68; PULSE 82; O2SAT 100; BMI 50.3
--- NOTE | 2021-08-30 22:10 | ED.GENADULT ---
HPI - General Adult General Chief complaint: ETOH/Substance Use Stated complaint: ETOH Time Seen by Provider: 08/30/21 22:05 Source: patient and EMS Limitations: altered mental status History of Present Illness HPI narrative: this is a 51-year-old male with a history of substance abuse who was found on the side of the road, semiconscious. The patient was given Narcan 4 mg intranasal and became more responsive. Patient is not very forthcoming as historian. He denies any injury or acute complaint. He denies being suicidal. He does admit alcohol use. He does not answer when I ask about heroin or pills. Related Data Previous Rx's Medication Instructions Recorded amoxicillin 875 mg-potassium 1 tab PO BID 10 days #20 tabs 04/30/21 clavulanate 125 mg tablet Allergies Allergy/AdvReac Type Severity Reaction Status Date / Time No Known Allergies Allergy Verified 02/26/21 15:14 Review of Systems Review of Systems: As per HPI Yes Unobtainable due to mental status PMFSH Past Medical History Medical History Acute alcohol intoxication Polysubstance abuse Social History Social History Alcohol intake: current Alcohol intake frequency: other Patient Tobacco Use Status: Refuse Tobacco use screen Use of substances other than those prescribed or required for medical reasons: Refusing to respond Substance Use Type: Opiates Advance Directives: No Advance Directives Information Provided: No Physical Exam ED Vital Signs: Vital Signs - 24 hr 08/30/21 23:41 08/31/21 02:44 Pulse Rate 92 88 Respiratory Rate 18 16 Blood Pressure 145/87 H 132/78 Pulse Oximetry 93 97 Oxygen Delivery Method Room Air Room Air BMI result Body Mass Index 50.3 Const Other: patient lying on his side in a reclining chair in the hallway, normal respirations. Normocephalic atraumatic. Patient does answer simple questions, speaks in a few word, but overall appears somnolent General: no acute distress Orientation/consciousness: patient oriented x3 HENMT Head: Yes normal to inspection General nose exam: Normal external nose present Mouth: moist mucous membranes Throat: Yes posterior oropharynx normal, Yes tonsils normal and Yes uvula midline Eyes Eyelids: Yes eyelids normal Conjunctivae: conjunctivae normal Pupils: Equal, round and reactive pupils present Neck Neck: Yes supple Resp Effort & Inspection: normal respiratory effort Auscultation: clear to auscultation bilaterally Cardio Rate: regular rate Rhythm: regular rhythm Heart sounds: S1 normal heart sound present, S2 normal heart sound present, no gallops, no murmurs and no rubs GI Inspection: No distended Palpation (GI): Soft to palpation and nontender Auscultation: normal bowel sounds Skin General skin exam: other (Warm and dry) Neuro General: patient oriented x3 and CN's II-XI intact bilaterally Cranial nerves: Yes Equal, round and reactive pupils present Extrem General: Yes no pedal edema Psych Affect: normal affect Attitude: cooperative Medical Decision Making MDM Narrative Medical decision making narrative: patient with acute intoxication, was initially somnolent. Patient had been given Narcan pre-hospital. patient eventually got out of the chair, stood up, ambulated around steadily, went through his belongings and realized that 1 of the sandals was missing, as were his keys, and 20 dollars. Patient was somewhat anxious and angry regarding this but was directable and clinically sober, was discharged Discharge Plan Discharge Clinical Impression: Acute alcohol intoxication, Polysubstance abuse Patient Disposition: Home, Self-Care Instructions: Abuse of Alcohol (ED) Additional Instructions: Seek outpatient detox from alcohol. Do not take street drugs. Return for any new or worsened symptoms Prescriptions: No Action amoxicillin-pot clavulanate 875-125 mg tablet 1 tab PO BID 10 Days Qty: 20 0RF Interventions: ED Discharge Assessment Last Done: 08/31/21 03:46 Discharge Date/Time: 08/31/21 03:49
[2021-08-30 23:41] VITALS: BP 145/87; PULSE 92; RESP 18; O2SAT 93
[2021-08-31 02:44] VITALS: BP 132/78; PULSE 88; RESP 16; O2SAT 97
== END 2021-08-31 03:49 | disposition home or self-care (01) ==
PROVIDERS: Emergency Provider Emergency Medicine
DX: F10.229 Alcohol dependence with intoxication, unspecified (principal); Y90.9 Presence of alcohol in blood, level not specified; F11.19 Opioid abuse with unspecified opioid-induced disorder; Z79.899 Other long term (current) drug therapy
CPT/HCPCS: 99283; 99285

== ENCOUNTER 2021-09-01 15:04 | Emergency (ER) | payer OTHER, SELFPAY ==
[2021-09-01 15:17] VITALS: BP 142/75; PULSE 113; O2SAT 100
[2021-09-01 15:26] VITALS: BP 127/64; PULSE 77; RESP 16; TEMP 36.7; O2SAT 100; BMI 22.9
--- NOTE | 2021-09-01 15:28 | ED.OVERDOSE ---
HPI - Overdose General Chief Complaint: Overdose Stated Complaint: HEROIN OD,NARCAN GIVEN W/GOOD RESULT PER EMS Time Seen by Provider: 09/01/21 15:25 Source: patient Mode of arrival: EMS Limitations: no limitations History of Present Illness complaint: accidental overdose Onset (ago): minute(s) (just prior to arrival ) Context: Accidental Overdose: wanted to get high Treatments Prior to Arrival: narcan (4mg prehospital) Related Data Previous Rx's Medication Instructions Recorded amoxicillin 875 mg-potassium 1 tab PO BID 10 days #20 tabs 04/30/21 clavulanate 125 mg tablet Allergies Allergy/AdvReac Type Severity Reaction Status Date / Time No Known Allergies Allergy Verified 02/26/21 15:14 Review of Systems Review of Systems: Constitutional : No Fever, No Chills ENT/Mouth : No Ear Pain, No Nasal Congestion, No sore throat Eyes: No Eye Pain, No Swelling, No Redness Cardiovascular : No Chest Pain, No SOB Respiratory : No Cough, No Sputum, No Dyspnea Gastrointestinal : No Nausea, No Vomiting, No Diarrhea, No Hematochezia, No Melena Genitourinary : No Dysuria, No Urinary Frequency, No Hematuria Musculoskeletal : No Myalgias Skin : No Skin Lesions, No rash Neuro : No Weakness, No Numbness, No Paresthesias, No Dizziness, No Headache Psych : no Anxiety, no Depression, no SI/HI All other systems reviewed and are negative [facility] Past Medical History Medical History Acute alcohol intoxication Polysubstance abuse Social History Social History (Updated 09/01/21 @ 15:50 by Farrah [place] DO) Alcohol intake: current Alcohol intake frequency: other Patient Tobacco Use Status: Current someday Tobacco user Substance Use Type: Opiates Advance Directives: No Advance Directives Information Provided: No Physical Exam Vital Signs: Vital Signs: Last Vital Signs Temp 98.1 F 09/01/21 15:26 Pulse 77 09/01/21 15:26 Resp 16 09/01/21 15:26 BP 127/64 09/01/21 15:26 Pulse Ox 100 09/01/21 15:26 O2 Del Method 09/01/21 15:26 BMI result Body Mass Index 22.9 Appearance: Alert. Oriented X3. No acute distress. Eyes: Pupils equal, round and reactive to light. ENT: Pharynx normal. atraumatic Neck: Normal inspection. Neck supple. CVS: Normal heart rate and rhythm. Pulses normal. Respiratory: No respiratory distress. Breath sounds normal. Abdomen: Soft and non-tender. Skin: Skin warm and dry. Normal skin color. Extremities: No lower extremity edema. Neuro: Oriented X 3. No motor deficit. No sensory deficit. Course Course Course Narrative: seen by addiction medicine on methadone and declining detox now monitored no need for repeat narcan obs x 2.5 hours MDM - Overdose MDM Narrative Medical decision making narrative: 51 yo male seen in the past for heroin overdose here with the same - no SI, states it was accidental responded to 4mg [place] narcan by EMS. At this time will observe, he is to be given narcan to take home. He is not toxic appearing and he is eating at this time. Recovery team at bedside - will evaluate and help with detox if he wants it. Discharge Plan Discharge Clinical Impression: Drug overdose Qualifiers: Encounter type: initial encounter Injury intent: accidental or unintentional Qualified Code(s): T50.901A - Poisoning by unspecified drugs, medicaments and biological substances, accidental (unintentional), initial encounter Patient Disposition: Home, Self-Care Instructions: Adult Overdose (ED) Additional Instructions: return to ED for any worsening symptoms or concerns carry narcan with you at all times Prescriptions: No Action amoxicillin-pot clavulanate 875-125 mg tablet 1 tab PO BID 10 Days Qty: 20 0RF
--- NOTE | 2021-09-01 15:54 | HO.SUDE ---
Met with pt in [facility]H to discuss substance use. Pt reports using 5 bags heroin daily, [place]. Has attempted to use IV in the past unsuccessfully. Pt does not remember the events leading up to overdose today, last remembers being on the bus. Pt reports hx 8 overdoses, most within the past year. Pt reports using clonazepam 2-3 times per month, PO, approx 5 mg at a time. Pt reports last overdose was related to clonazepam use and methadone, not heroin. Pt denies benzo use today. Pt currently receives 115 mg methadone daily at [facility] x 4 [facility]. Reports significant decrease in opiate use since beginning the OTP. Pt reports having been to [facility] in the past, last admission over 5 years ago. Pt reports having a safe place to live on [facility] in [place]. Pt states I want to go to detox in a few weeks, I have some stuff to take care of. Discussed harm reduction as well as local recovery supports and services. Pt states I'm good, I can discharge. Reinforced harm reduction and risks of fatal overdose. Discussed with provider.
[2021-09-01] MEDS: Naloxone HCl Nasal TAKE HOME 4 MG SPRAY NOSTRILALT (17:41)
== END 2021-09-01 17:51 | disposition home or self-care (01) ==
PROVIDERS: Emergency Provider Emergency Medicine
DX: T40.1X1A Poisoning by heroin, accidental (unintentional), initial encounter (principal); F11.19 Opioid abuse with unspecified opioid-induced disorder; Y92.9 Unspecified place or not applicable; F17.200 Nicotine dependence, unspecified, uncomplicated; Z71.6 Tobacco abuse counseling; Z79.899 Other long term (current) drug therapy; Z71.51 Drug abuse counseling and surveillance of drug abuser
CPT/HCPCS: 99282; 99283

== ENCOUNTER 2021-10-13 23:41 | Emergency (ER) | payer OTHER, SELFPAY ==
--- NOTE | ~2021-10-13 | XR_ITS ---
EXAMINATION: XR ANKLE, LEFT CLINICAL INFORMATION: Left ankle pain COMPARISON: None TECHNIQUE: AP, lateral, and mortise views of the left ankle. FINDINGS: The bones and soft tissues are normal. No fracture. Alignment is anatomic. Joint spaces are maintained. No joint effusion. XR/XR ankle LT min 3V IMPRESSION: Normal left ankle.
--- NOTE | ~2021-10-13 | CT_ITS ---
EXAMINATION: NONCONTRAST HEAD CT NONCONTRAST MAXILLOFACIAL CT NONCONTRAST CERVICAL SPINE CT INDICATION INFORMATION: Fall with head strike. Pain around the left orbit. COMPARISON: 05/19/2021 TECHNIQUE: Separate noncontrast CT examinations of the head, maxillofacial bones, and cervical spine were performed. Coronal and sagittal images were created for each examination at the technologist workstation. This CT examination was performed using dose optimization techniques as appropriate, variously including the following: *Automated exposure control *Adjustment of mA and/or kV according to patient size (this includes techniques or standardized protocols for targeted exams where dose is matched to indication/reason for exam; i.e. extremities or head) *Use of iterative reconstruction technique DLP: 1436 mGy-cm FINDINGS: Head: There is no evidence of acute intracranial hemorrhage or territorial infarction. No abnormal mass effect or midline shift is seen. Rubi to white matter differentiation is well preserved. No extra-axial fluid collections are identified. No hydrocephalus. No significant volume loss. There is no abnormal attenuation within the brain parenchyma. No acute soft tissue abnormality. No calvarial fracture. The mastoid air cells are well aerated. Maxillofacial: Irregular appearance of the right mandible. Fracture through the right mandible. Multiple absent teeth. Multiple dental caries. The pterygoid plates are intact. The lamina papyracea are intact. The zygomatic arches are intact. The orbital rims are intact. The nasal bone is intact.. The frontal, maxillary, ethmoid, and sphenoid sinuses are well aerated. The uncinate process is normal bilaterally. The infundibula and middle meati are patent. The nasal septum is midline. The mandibular heads are well-seated in the condylar fossa. The orbits demonstrate a normal appearance bilaterally. The globes are intact, and there are no suspicious findings to suggest retrobulbar hemorrhage. Cervical spine: There is anatomic alignment of the vertebral bodies and posterior elements. The atlantoaxial and atlantooccipital articulations are intact. Vertebral body heights are maintained. There is multilevel intervertebral disc space narrowing with endplate osteophyte formation and facet arthropathy. No evidence of acute fracture. No prevertebral soft tissue swelling. Visualized portions of the lung apices are unremarkable. The thyroid gland is unremarkable. CT/CT cervical spine wo con IMPRESSION: 1. No acute intracranial finding. 2. Fracture of the right mandible. Prominent associated lucency with multiple absent teeth within the bone. 3. No acute fracture or malalignment of the cervical spine. Mild degenerative changes.
--- NOTE | ~2021-10-13 | XR_ITS ---
EXAMINATION: XR HAND, LEFT CLINICAL INFORMATION: Pain COMPARISON: None TECHNIQUE: 3 views of the left hand FINDINGS: No fracture or dislocation. Alignment is anatomic. Joint spaces are maintained. The carpal rows are well aligned. The soft tissues are unremarkable. XR/XR hand wrist LT IMPRESSION: No fracture or malalignment.
--- NOTE | ~2021-10-13 | CT_ITS ---
EXAMINATION: CT CHEST WITHOUT CONTRAST CLINICAL INFORMATION: Fall. Anterior chest wall pain. COMPARISON: None TECHNIQUE: Multidetector volumetric CT imaging of the chest was done. Axial MIP volume rendering provided. Sagittal and coronal reformatted images were obtained. This CT examination was performed using dose optimization techniques as appropriate, variously including the following: *Automated exposure control *Adjustment of mA and/or kV according to patient size (this includes techniques or standardized protocols for targeted exams where dose is matched to indication/reason for exam; i.e. extremities or head) *Use of iterative reconstruction technique DLP: 377 mGy-cm FINDINGS: FLANGING ROLL OPERATOR: Partially imaged irregularity at the distal left humerus.. LUNGS: Central airways are patent. Mild dependent atelectasis bilaterally. No dense consolidation. No pneumothorax. No suspicious pulmonary nodule. MEDIASTINUM: Normal heart size. No pericardial effusion. No mediastinal lymphadenopathy. The thyroid gland is unremarkable. PLEURA: There is no pleural effusion. No pleural mass or thickening. AXILLA: No lymphadenopathy. UPPER ABDOMEN: Unremarkable. OSSEOUS STRUCTURES: No acute or suspicious osseous abnormality. Vertebral body height and alignment maintained with mild multilevel endplate osteophytes. The sternum is intact. The ribs are intact. Chronic left clavicle fracture which is healed. No scapular fracture. The glenohumeral joints are well aligned. The visualized left humerus is intact. CT/CT chest wo con IMPRESSION: No acute findings of the chest. Chronic healed left clavicular fracture. No acute pulmonary finding. Fleischner guidelines were followed.
--- NOTE | ~2021-10-13 | XR_ITS ---
EXAMINATION: XR ELBOW, LEFT CLINICAL INFORMATION: Left elbow pain COMPARISON: None TECHNIQUE: Two views of the left elbow. FINDINGS: There is an intra-articular distal humeral fracture involving the medial humeral epicondyle. Mild rotation of the fracture fragment. No dislocation at the elbow. Joint effusion. Soft tissue swelling. XR/XR elbow LT 2V IMPRESSION: Intra-articular distal humeral fracture involving the medial humeral epicondyle.
[2021-10-13 23:52] VITALS: BP 119/65; BP 96/58; PULSE 58; PULSE 60; RESP 8; O2SAT 100; O2SAT 98; BMI 27.8
[2021-10-13 23:56] VITALS: BP 96/58; PULSE 60; RESP 10; TEMP 36.6; O2SAT 96
[2021-10-14 00:17] LABS: MANUAL DIFF FLAG NO
[2021-10-14 00:18] LABS: Basophils Percent Auto 0.8 % (0-2); Eosinophils Absolute Auto 0.2 X10*3/uL (0.0-0.4); Eosinophils Percent Auto 4.9 % (0-4); Hematocrit 36.3 % (42.0-52.0); Hemoglobin 11.9 g/dl (14.0-18.0); Imm Gran Abs Auto 0.03 X10*3/uL (0.00-0.03); Imm Gran Pct Auto 0.6 % (0.0-0.4); Lymphocytes Absolute Auto 1.9 X10*3/uL (1.2-4.9); Lymphocytes Percent Auto 38.6 % (20-40); Mean Corpuscular HGB Conc 32.8 g/dl (31.0-36.0); Mean Corpuscular Hemoglobin 29.4 pg (27.0-33.0); Mean Corpuscular Volume 89.6 fL (80.0-98.0); Mean Platelet Volume 9.2 fL (9.4-12.4); Monocytes Absolute Auto 0.5 X10*3/uL (0.1-1.2); Neutrophils Absolute Auto 2.2 x10*3/uL (2.0-8.3); Neutrophils Percent Auto 45.1 % (45-73); Platelet Count 183 X10*3/uL (160-400); Red Blood Count 4.05 X10*6/uL (4.60-5.80); Red Cell Distribution Width 13.8 % (11.0-16.0); White Blood Count 4.9 X10*3/uL (4.8-10.8)
--- NOTE | 2021-10-14 00:19 | ED_ITS ---
HPI - General Adult General Chief complaint: Extremity Problem Stated complaint: Ankle Injury Time Seen by Provider: 10/13/21 23:52 Source: patient and EMS Mode of arrival: EMS Limitations: altered mental status (likley secondary to substance abuse ) History of Present Illness HPI narrative: 51-year-old male past medical history significant for alcohol use disorder, polysubstance abuse presenting to the emergency department via ambulance with complaints of fall, substance abuse, left upper extremity pain and left ankle pain, pain over left eye and mouth pain. Patient tells me he was recently discharged from [facility] where he was there for a few hours due to a fentanyl overdose, patient was discharge he tells me he is not sure how he ended up in [place] however he ended up in [place] he used 2 bags of heroin prior to his arrival here he reports that he fell onto his left hand side now complaining of ankle and left upper extremity pain, he is unsure if he hit his head or loss consciousness. Patient poor historian, speaking with slow speech, dozing off during my conversation with him. Upon history taking patient appears to be disheveled and he has grass in his hair small abrasion over the left eyebrow. He denies headache, dizziness, vision changes, chest pain, shortness of breath, nausea, vomiting, abdominal pain. Patient is not on blood thinners. Tells me he did not drink prior to his arrival. Denies SI and HI. Patient margo historian and appears to be under the influence of drugs and or alcohol. Tried to obtain records from [facility] however they are currently in down time unable to send records over to me Onset (ago): hour(s) (1) Location: head, upper extremity and lower extremity Radiation: non-radiation Severity: severe Severity scale (1-10): 10 Related Data Previous Rx's Medication Instructions Recorded amoxicillin 875 mg-potassium 1 tab PO BID 10 days #20 tabs 04/30/21 clavulanate 125 mg tablet Allergies Allergy/AdvReac Type Severity Reaction Status Date / Time No Known Allergies Allergy Verified 02/26/21 15:14 Review of Systems Review of Systems: Constitutional : No Weight loss, No Fever, No Chills, No Fatigue, No Malaise ENT/Mouth : No sore throat, No Rhinorrhea, + mouth pain Eyes: + Eye Pain, No Swelling, No Redness Cardiovascular : No Chest Pain, No SOB, No Dyspnea on Exertion, No Orthopnea, No Edema, No Palpitations Respiratory : No Cough, No Sputum, No Wheezing Gastrointestinal : No Nausea, No Vomiting, No Diarrhea, No Constipation, No abdominal Pain, No Hematochezia, No Melena Genitourinary : No Dysuria, No Urinary Frequency, No Hematuria, Musculoskeletal : + joint pain, No Myalgias, + Joint Swelling Skin : No Skin Lesions, No rash Neuro : No Weakness, No Numbness, No Dizziness, No Headache Psych : No Anxiety/Panic, No Depression All other systems reviewed and are negative Yes all other systems are reviewed and are negative [facility] Past Medical History Attestation statement: The following information was validated with the patient. Source: old records reviewed and nursing notes reviewed Medical History Acute alcohol intoxication Polysubstance abuse Social History Social History (Updated 09/01/21 @ 15:50 by Delfina Colorado DO) Alcohol intake: never Patient Tobacco Use Status: Never used Tobacco Use of substances other than those prescribed or required for medical reasons: Yes Substance Use Type: Heroin Substance Use Type Other:: fentanyl Advance Directives: No Physical Exam ED Vital Signs: Vital Signs - 24 hr 10/13/21 23:52 10/13/21 23:56 10/14/21 01:03 Temperature 97.8 F Pulse Rate 58 60 70 Respiratory Rate 8 L 10 L 16 Blood Pressure 96/58 L 96/58 L 129/101 H Pulse Oximetry 98 96 100 Oxygen Delivery Method Room Air Room Air Room Air 10/14/21 02:00 10/14/21 03:12 10/14/21 03:33 Temperature Pulse Rate 66 74 65 Respiratory Rate 15 16 Blood Pressure 91/59 L 103/56 L Pulse Oximetry 97 98 Oxygen Delivery Method Room Air Room Air BMI result Body Mass Index 27.8 VSS Appearance: Alert.? Oriented X3.? No acute distress.? Patient appears to be under the influence of drugs, slow speech. Head: Normocephalic. + patient with small abrasion overlying the left eyebrow and reports discomfort to palpation there. Patient has grass in his hair. Eyes: Pupils equal, round and reactive to light.? Bilateral conjunctiva with injection. Extraocular movements intact and pain-free. ENT: Pharynx normal.?+ pain to mouth particularly right side. Poor dentitiion Neck: Normal inspection.? Neck supple.? Full range of motion to neck no pain. CVS: Normal heart rate and rhythm.? Pulses normal.? No pain with palpation of a nterior chest wall. Respiratory: No respiratory distress.? Breath sounds normal.? Abdomen: Soft and nontender.? Skin: Skin warm and dry.? Normal skin color.? Normal skin turgor.? Extremities: No lower extremity edema.? No calf ttp. Global weakness noted. Patient unable to lift left arm up off of stretcher, pain w/ palpation of left elbow. No pain w/ palpation of left shoulder wrist or hand. Normal right arm. 2+ radial, ulnar pulses equal bilateral. No wrist drop bilaterally. Patient reports pain to left lower extremity and ankle however moving bilateral ankles without difficulty. Back: No midline tenderness, no C-spine tenderness, full range of motion, no CVA tenderness bilaterally Neuro: Oriented X 3.? No motor deficit.? No sensory deficit. 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 Patient unable to ambulate due to pain he tells me. Course Reevaluation(s) Reevaluation #1: CBC within normocytic anemia. Chemistry no acute electrolyte abnormalities requiring intervention. Ethanol negative. COVID negative. X-ray of the left wrist with no fractures no malalignment, x-ray of the left elbow with intra- articular distal humeral fracture involving the medial humeral epicondyle, patient will be placed in a posterior long-arm splint and will be given a sling. Normal left ankle. Urine toxicology and UA pending. CT of facial bones, head and brain, chest and cervical spine pending at this time. Time: 01:30 Reevaluation #2: Posterior long-arm splint has been applied, neurovascularly intact after application, able to wiggle fingers. Patient appears a little bit more comfortable the left upper extremity. Sling will be placed for comfort as well. CT of the head, face, chest and cervical spine pending at this time. Time: 02:09 Reevaluation #3: CT of the head and brain with no acute intracranial findings. Fracture of the right mandible, I went to reexamine patient and he reports pain however he is very intoxicated and not making much sense. No acute fracture or malalignment of the cervical spine. Patient reporting pain, discuss this with my attending who recommends speaking to [facility] HEENT/trauma. . Time: 02:27 Additional Reevaluation(s): Patient will be transfered to [facility] ED w/ surgical consult. Dr. Carrera trauma surgeon accepting. Educated patient on dx and tx plan, verbalizes understanding. Medical Decision Making MDM Narrative Medical decision making narrative: 0000 51-year-old male presents with suspected polysubstance abuse, fall reporting left upper extremity pain and left ankle pain. Recently discharged from [facility] a few hours ago for fentanyl overdose he tells me, reports used 2 bags of heroin prior to his arrival. Patient speaking in slow sentences however alert and oriented x4. Poor historian. Patient likley face planted. Upon exam patient appears disheveled. Grass in hair, small abrasion over left eyebrow, pain to left orbit area. Pain to mouth/mandible region R>L. Patient is speaking slowly however alert and oriented x4. Regular rate and rhythm. Lungs- clear. Full range of motion to neck, no midline tenderness. Patient tells me he is having pain to left upper extremity cannot lift his arm off of the stretcher. Normal right upper extremity. Bilateral lower extremities within normal limits however reporting left ankle pain however he is moving bilateral ankles freely. No foot drop bilaterally. No distracting injuries or abnormalities. EMOI and pain free. Pupils equal round and reative. Neuro exam nonfocal. Unable to access NIH stroke scale due to likely substances on board. Will rule out fractures, dislocations, intracranial hemorrhage. Symptoms likely secondary to substance abuse. Likely elbow fx or dislocation. Will rule out facial fxs due to left orbit pain and pain to mouth/ mandible region. EOMI unlikely entrapment of optic nerve Plan at this time is basic labs, ethanol, MCCARTHY, CT of the head and neck as well as chest. Will also obtain imaging of left shoulder, elbow, hand and wrist. As well as left ankle. Medical Records Medical records reviewed: Yes I reviewed the patient's medical records. Lab Data Lab results reviewed: Yes I reviewed the patient's lab results. Result diagrams: 10/14/21 00:07 10/14/21 00:07 Labs: Lab Results 10/14/21 10/14/21 10/14/21 Range/Units 00:04 00:07 00:07 WBC 4.9 (4.8-10.8) X10*3/uL RBC 4.05 L (4.60-5.80) X10*6/uL Hgb 11.9 L (14.0-18.0) g/dl Hct 36.3 L (42.0-52.0) % MCV 89.6 (80.0-98.0) fL MCH 29.4 (27.0-33.0) pg MCHC 32.8 (31.0-36.0) g/dl RDW 13.8 (11.0-16.0) % Plt Count 183 (160-400) X10*3/uL MPV 9.2 L (9.4-12.4) fL Immature Gran % (Auto) 0.6 H (0.0-0.4) % Neut % (Auto) 45.1 (45-73) % Lymph % (Auto) 38.6 (20-40) % [place] % (Auto) 10.0 (2-11) % Eos % (Auto) 4.9 H (0-4) % Baso % (Auto) 0.8 (0-2) % Lymph # (Auto) 1.9 (1.2-4.9) X10*3/uL [place] # (Auto) 0.5 (0.1-1.2) X10*3/uL Eos # (Auto) 0.2 (0.0-0.4) X10*3/uL Baso # (Auto) 0.0 (0.0-0.2) X10*3/uL Abs Immat Gran (auto) 0.03 (0.00-0.03) X10*3/uL Absolute Neuts (auto) 2.2 (2.0-8.3) x10*3/uL Absolute Nucleated RBC 0.000 (0.0-0.012) X10*3/uL Nucleated RBC % (auto) 0.0 (0.0-0.2) /100WBC Sodium 143 (135-145) mmol/L Potassium 4.1 (3.3-5.1) mmol/L Chloride 104 (96-108) mmol/L Carbon Dioxide 30 H (22-29) mmol/L Anion Gap 13 (12-20) BUN 15 (9-16) mg/dL Creatinine 0.90 (0.5-1.4) mg/dL Estim Creat Clear Calc 109.3 Estimated GFR > 60 Random Glucose 69 D (60-115) mg/dL Calcium 8.4 D (8.4-10.2) mg/dL Magnesium 2.1 (1.6-2.6) mg/dL Total Bilirubin 0.2 (0.0-1.0) mg/dL AST 16 (5-37) U/L ALT 15 (0-40) U/L Alkaline Phosphatase 73 (39-117) U/L Total Protein 6.1 L (6.5-8.0) g/dL Albumin 3.7 (3.5-5.0) g/dL Ethyl Alcohol < 10 mg/dL COVID-19 (YUNIOR) Negative (Negative) COVID-19 Clin Com See Note Critical Care Time Critical Care Time Critical Care Time: Yes Total Critical Care Time: 45 Attestation: I attest to this time spent taking care of the patient, obtaining history, physical, reviewing labs, imaging, speaking to my attending, speaking to specialist. Discharge Plan Discharge Clinical Impression: Polysubstance abuse, Fall, Fracture of distal end of humerus, Fracture of mandible Patient Disposition: [facility] Transfer Details: Patient will be transferred to [facility] ED w/ surgical consult. Dr. Carrera accepting. Instructions: Arm Fracture in Adults (ED), Fall Prevention for Older Adults (ED), Polysubstance Abuse (ED), Fall Prevention (ED) Additional Instructions: Patient will be transferred to [facility] ED w/ surgical consult. Dr. Carrera accepting. Prescriptions: No Action amoxicillin-pot clavulanate 875-125 mg tablet 1 tab PO BID 10 Days Qty: 20 0RF Referrals: [facility] [Provider Group[facility] - 2 days [facility] [Provider Group] - 2 days Physician,None [Primary Care Provider] - 2 days Interventions: Acute Care Transfer Worksheet (ED) Last Done: 10/14/21 03:45 Discharge Date/Time: 10/14/21 03:46
[2021-10-14 00:34] LABS: Alanine Aminotransferase 15 U/L (0-40); Albumin Level 3.7 g/dL (3.5-5.0); Alkaline Phosphatase 73 U/L (39-117); Anion Gap 13 (12-20); Aspartate Amino Transferase 16 U/L (5-37); Bilirubin Total 0.2 mg/dL (0.0-1.0); Blood Urea Nitrogen 15 mg/dL (9-16); Calcium 8.4 mg/dL (8.4-10.2); Carbon Dioxide 30 mmol/L (22-29); Chloride 104 mmol/L (96-108); Creatinine Clr Calc Pharmacy 109.3; Estimated Glomerular Filt Rate > 60; Ethanol < 10 mg/dL; Glucose Random 69 mg/dL (60-115); Magnesium 2.1 mg/dL (1.6-2.6); Potassium 4.1 mmol/L (3.3-5.1); Sodium 143 mmol/L (135-145); Total Protein 6.1 g/dL (6.5-8.0)
[2021-10-14 00:38] LABS: COVID-19 Test Negative (Negative)
[2021-10-14] MEDS: Naloxone HCl Nasal 4 MG SPRAY NOSTRILALT (00:58)
--- NOTE | 2021-10-14 00:58 | PC.NURSE ---
Pt came back from CT, sleeping in bed with respirations 7-8 bpm. Pupils were pin point. Pt arousable and able to answer questions. Denies using drugs or alcohol. 4 mg of narcan administered intranasal at this time.
[2021-10-14 01:03] VITALS: BP 129/101; PULSE 70; RESP 16; O2SAT 100
[2021-10-14 02:00] VITALS: PULSE 66; RESP 15; O2SAT 97
--- NOTE | 2021-10-14 03:11 | PC.NURSE ---
This US/Pct called [facility]'s Transfer line for a Trauma transfer at 0226 per Natasha PATEL. At 030 accepted to [facility] ER to ER. Action called at 030 for a BLS transfer ETA 20mins. Rn and Charge aware.
[2021-10-14 03:12] VITALS: BP 91/59; PULSE 74; RESP 16; O2SAT 98
[2021-10-14 03:33] VITALS: BP 103/56; PULSE 65
--- NOTE | 2021-10-14 03:45 | PC.NURSE ---
IV inserted, pt transferred to EMS stretcher. Report called to [facility], given to Beth
== END 2021-10-14 03:46 | disposition short-term general hospital (02) ==
PROVIDERS: Physician Assistant; Emergency Provider Internal Medicine
DX: F19.10 Other psychoactive substance abuse, uncomplicated (principal); S42.445A Nondisplaced fracture (avulsion) of medial epicondyle of left humerus, initial encounter for closed fracture; S02.609A Fracture of mandible, unspecified, initial encounter for closed fracture; S00.212A Abrasion of left eyelid and periocular area, initial encounter; W19.XXXA Unspecified fall, initial encounter; K02.9 Dental caries, unspecified; Y93.9 Activity, unspecified; Y92.410 Unspecified street and highway as the place of occurrence of the external cause; Y99.9 Unspecified external cause status; Z20.822 Contact with and (suspected) exposure to COVID-19
CPT/HCPCS: 29105; 70450; 70486; 71250; 72125; 73070; 73110; 73130; 73610; 80053; 82077; 83735; 85025; 87635; 99285

== ENCOUNTER 2022-06-04 14:22 | Emergency (ER) | payer OTHER, SELFPAY ==
[2022-06-04 14:43] VITALS: BP 144/84; PULSE 58; RESP 9; TEMP 36.1; O2SAT 100; BMI 20.3
[2022-06-04 14:54] VITALS: O2SAT 97
[2022-06-04 15:01] VITALS: BP 137/82; PULSE 53; RESP 11; O2SAT 99
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
[2022-06-04 15:50] VITALS: BP 118/72; PULSE 65; RESP 15; TEMP 36.9; O2SAT 98
--- NOTE | 2022-06-04 15:55 | MHC.EDTECH ---
THIS PCT ASSUMED CARE OF PT AT 1500 ,REPEATED LAB DRAWN AND SENT TO LAB ,VITALS SIGN TAKEN ,PT SLEEPING .
[2022-06-04 15:57] LABS: Basophils Percent Auto 0.4 % (0-2); Eosinophils Absolute Auto 0.1 X10*3/uL (0.0-0.4); Eosinophils Percent Auto 2.6 % (0-4); Hematocrit 36.9 % (42.0-52.0); Hemoglobin 12.6 g/dl (14.0-18.0); Imm Gran Abs Auto 0.01 X10*3/uL (0.00-0.03); Imm Gran Pct Auto 0.2 % (0.0-0.4); Mean Corpuscular HGB Conc 34.1 g/dl (31.0-36.0); Mean Corpuscular Hemoglobin 30.1 pg (27.0-33.0); Mean Corpuscular Volume 88.3 fL (80.0-98.0); Mean Platelet Volume 8.9 fL (9.4-12.4); Monocytes Absolute Auto 0.5 X10*3/uL (0.1-1.2); Monocytes Percent Auto 11.6 % (2-11); Neutrophils Absolute Auto 2.9 x10*3/uL (2.0-8.3); Neutrophils Percent Auto 63.2 % (45-73); Platelet Count 155 X10*3/uL (160-400); Red Blood Count 4.18 X10*6/uL (4.60-5.80); White Blood Count 4.6 X10*3/uL (4.8-10.8)
[2022-06-04 16:54] LABS: Alanine Aminotransferase 10 U/L (0-40); Albumin Level 3.6 g/dL (3.5-5.0); Alkaline Phosphatase 80 U/L (39-117); Anion Gap 11 (12-20); Aspartate Amino Transferase 24 U/L (5-37); Bilirubin Direct < 0.2 mg/dL (0.0-0.5); Bilirubin Total 0.4 mg/dL (0.0-1.0); Blood Urea Nitrogen 13 mg/dL (9-16); Calcium 8.6 mg/dL (8.4-10.2); Carbon Dioxide 29 mmol/L (22-29); Chloride 108 mmol/L (96-108); Creatinine Clr Calc Pharmacy 81.6; Estimated Glomerular Filt Rate > 60; Ethanol < 10 mg/dL; Glucose Random 83 mg/dL (60-115); Magnesium 2.2 mg/dL (1.6-2.6); Potassium 3.7 mmol/L (3.3-5.1); Sodium 144 mmol/L (135-145); Total Protein 5.6 g/dL (6.5-8.0)
--- NOTE | 2022-06-04 17:15 | PC.NURSE ---
spoke with case briefer Marcos Addison [phone] who reports pt has safe ho using in [place]. pt denies SI. Marcos ok with d/c home via bus.
[2022-06-04] MEDS: Naloxone HCl Nasal TAKE HOME 4 MG SPRAY NOSTRILALT (17:17)
[2022-06-04 18:02] LABS: MANUAL DIFF FLAG NO
== END 2022-06-04 17:55 | disposition home or self-care (01) ==
PROVIDERS: Physician Assistant; Emergency Provider Emergency Medicine
DX: T40.1X1A Poisoning by heroin, accidental (unintentional), initial encounter (principal); Y92.9 Unspecified place or not applicable; Z79.899 Other long term (current) drug therapy
CPT/HCPCS: 36415; 80048; 80076; 82077; 83735; 85025; 99283

== ENCOUNTER 2022-06-05 01:17 | Emergency (ER) | payer OTHER, SELFPAY ==
--- NOTE | ~2022-06-05 | XR_ITS ---
EXAMINATION: XR CHEST CLINICAL INFORMATION: Cough COMPARISON: None available. TECHNIQUE: Frontal view of the chest was obtained. FINDINGS: Normal symmetric lung volumes. No parenchymal consolidation. No pleural effusion. No pneumothorax. Cardiomediastinal silhouette and pulmonary vascularity are within normal limits. No acute osseous abnormalities. XR/XR chest 1V IMPRESSION: No acute findings.
[2022-06-05 01:29] VITALS: BP 110/80; BP 114/69; PULSE 58; PULSE 62; RESP 16; TEMP 36.6; O2SAT 96; O2SAT 97; BMI 22.5
--- OUTSIDE RECORDS SUMMARY | 2022-06-05 02:22 | XMS_ITS | Continuity of Care Document ---
Author Name Unknown Organization [facility] ter Address [address] [place] [id number]- Care Team Providers Care Card Cutter Name Role Phone Ronaldo Jaramillo MD Primary Care Physician Parker whitney [place] [facility] [place] - 10/20/[address] [address]- Encounter Diagnosis Left humeral fracture(Final) - 10/14/21 Discharge Disposition: A-D/C Home Attending Physician: Susan Colon MD Admitting Physician: Izzy Stewart DO Referring Physician: Not on Staff, Referring MD Allergies, Adverse Reactions, Alerts No Known Allergies Immunizations Given and Recorded Vaccine Date Status Refusal Reason SARS-CoV-2 (COVID-19) Ad26 vaccine 12/22/20 Record ed tetanus/diphtheria/pertussis, acel(Tdap) 10/16/18 Given pneumococcal 23-valent vaccine 1 08/31/11 Given tetanus-diphtheria toxoids (Td) 2 01/07/09 Given 1Admin Note: VIS GIVEN 12/03/08 2Admin Note: VIS GIVEN 01/16/08 Medications acetaminophen 325 mg oral tablet 975 mg, By Mouth, Every 8 hours, for 5 days, # 50 tablet, Refills 0, Tot. Refills 0, Acute 10/25/2212:34:00 EDT, 10/20/21 13:34:00 EDT, Route to Pharmacy Electronically, [facility], Partial fill upon patient request if the prescription... Start Date: 10/20/21 Stop Date: 10/25/21 Status: Ordered folic acid 1 mg oral tablet 1 mg, 1, tablet, By Mouth, Daily, # 30 tablet, Refills 0, Tot. Refills 0, Maintenance, 10/20/21 13:35:00 EDT, Route to Pharmacy Electronically, [facility], Partial fill upon patient request if the prescription is for a schedule II opioid... Start Date: 10/20/21 Stop Date: 11/19/21 Status: Ordered Methadone = 130 mg, By Mouth, Daily, 0 Refills, Maintenance, 10/15/21 9:26:00 EDT, Partial fill upon patient request if the prescription is for a schedule II opioid drug. Start Date: 10/15/21 Status: Ordered Methadone Liquid 130 mg, Solution, By Mouth, dose verified, Hold for: RR< 10, drowsy, hypersomnolence, 10/20/21 9:00:00 EDT Start Date: 10/20/21 Stop Date: 10/20/21 Status: Completed multivitamin Multiple Vitamins oral tablet 1 tablet, By Mouth, Daily, # 30 tablet, 0 Refills, Maintenance, 10/20/21 13:36:00 EDT, Tablet, [facility], Partial fill upon patient request if the prescription is for a schedule II opioid drug., 1 tablet By Mouth Daily,x30 days, 180, cm... Start Date: 10/20/21 Stop Date: 11/19/21 Status: Ordered oxyCODONE 5 mg oral tablet 5 mg, 1, tablet, By Mouth, Every 6 hours, PRN, # 10 tablet, Refills 0, Tot. Refills 0, Acute 11/03/21 12:00:00 EDT, Pain , Moderate, 10/20/21 13:36:00 EDT, Route to Pharmacy Electronically, [facility], Partial fill upon patient request i... Start Date: 10/20/21 Stop Date: 11/03/21 Status: Ordered Oystercal-D 500 mg-125 intl units oral tablet 1 tablet, By Mouth, 2 times a day, # 60 tablet, 0 Refills, Maintenance, 10/20/21 13:35:00 EDT, Tablet, [facility], Partial fill upon patient request if the prescription is for a schedule II opioid drug., 1 tablet By Mouth 2 times a day,x... Start Date: 10/20/21 Stop Date: 11/19/21 Status: Ordered pantoprazole 40 mg oral delayed release tablet = 40 mg, By Mouth, Daily, # 30 tablet, 0 Refills, Maintenance, 10/20/21 13:36:00 EDT, EC Tablet, 180, cm, 10/20/21 7:22:00 EDT, Height, 70.5, kg, 10/15/21 10:29:00 EDT, Dry Weight Start Date: 10/20/21 Stop Date: 11/19/21 Status: Ordered Prozac 20 mg oral capsule 1 capsule = 20 mg, By Mouth, Daily, # 30 capsule, 1 Refills, Maintenance, Capsule Start Date: 09/10/11 Stop Date: 11/09/11 Status: Ordered pyridoxine 50 mg oral tablet 50 mg, 1, tablet, By Mouth, Daily, for 30 days, # 30 tablet, Refills 0, Tot. Refills 0, Acute 11/19/21 13:36:00 EDT, 10/20/21 13:36:00 EDT, Route to Pharmacy Electronically, [facility],Partial fill upon patient request if the prescripti... Start Date: 10/20/21 Stop Date: 11/19/21 Status: Ordered senna 187 mg oral tablet 2 tablet = 17.2 mg, By Mouth, Daily at bedtime, PRN constipation, # 12 tablet, 0 Refills, Acute 11/04/21 12:00:00 EDT, 10/20/21 13:37:00 EDT, Tablet, [facility], Partial fill upon patient request if the prescription is for a schedule II... Start Date: 10/20/21 Stop Date: 11/04/21 Status: Ordered thiamine 100 mg oral tablet 100 mg, 1, tablet, By Mouth, 2 times a day, for 30 days, # 60 tablet, Refills 0, Tot. Refills 0, Acute 11/19/21 13:37:00 EDT, 10/20/21 13:37:00 EDT, Route to Pharmacy Electronically, [facility], Partial fill upon patient request if the p... Start Date: 10/20/21 Stop Date: 11/19/21 Status: Ordered Problem List Condition Effective Dates Status Health Status Inform ant BRBPR - Bright red blood per rectum(Confirmed) 10/07/10 Active History of hip surgery(Confirmed) 1 Active OCD - Obsessive-compulsive disorder(Confirmed) Active Polysubstance abuse(Confirmed) Active Solitary nodule of lung(Confirmed) 2 05/08/10 Active 1LEFT HIP SURGERY 2Documented in CT scan 04/2010 Results Radiology Reports * Exam Date Time Procedure Performing Provider Status 10/19/21 11:05 AM C-Arm < 1 Hour Duke Crum; Auth (V erified) Notes: (C-Arm < 1 Hour) Reason For Exam: ORIF Left Distal Humerus RESULT: C-Arm < 1 Hour C-Arm < 1 Hour INDICATION: Reason: ORIF Left Distal Humerus COMPARISONS: None TECHNIQUE: Fluoroscopy support was provided. There was no radiologist in attendance. FLUOROSCOPY TIME: 34 seconds TECHNOLOGIST TIME: 50 minutes FINDINGS: Fluoroscopy support was provided. There was no radiologist in attendance. IMPRESSION: See above. WSN: [id number] Ordering Physician: Angel Connolly Dictated By: Deven Velez MD Dictated Date/Time: 10/20/21 9:02 am Reviewed By: Deven Velez MD Signed By: Deven Velez MD Signed Date/Time: 10/20/21 9:02 am Transcribed By: SHANTEL Transcribed Date/Time: 10/19/21 6:23 pm * Exam Date Time Procedure Performing Provider Status 10/19/21 11:05 AM Elbow 2 Views Left Duke Crum; Aut h (Verified) Notes: (Elbow 2 Views Left) Reason For Exam: ORIF Left Distal Humerus RESULT: Elbow 2 Views Left Elbow 2 Views Left INDICATION: Reason: ORIF Left Distal Humerus COMPARISONS: None TECHNIQUE: Fluoroscopy support was provided. There was no radiologist in attendance. FLUOROSCOPY TIME: 34 seconds EXPOSURE: 0.93 mGy TECHNOLOGIST TIME: 50 minutes FINDINGS: Multiple fluoroscopic images during ORIF left humerus.Please refer to operative report for completefindings and narrative. IMPRESSION: See above. WSN: [id number] Ordering Physician: Angel Connolly Dictated By: Hany Padilla MD Dictated Date/Time: 10/19/21 5:13 pm Reviewed By: Hany Padilla MD Signed By: Hany Padilla MD Signed Date/Time: 10/19/21 5:13 pm Transcribed By: SHANTEL Transcribed Date/Time: 10/19/21 5:12 pm Vital Signs Most recent to oldest [Reference Range]: 1 2 3 Height 180 cm (10/20/21 11:30 AM) 180 cm (10/20/21 7:22 AM) 180 cm (10/20/21 3:09 AM) Weight 70.5 kg (10/19/21 6:10 AM) 70.5 kg (10/15/21 9:32 AM) Oxygen Saturation [94-100 %] 97 % (10/20/21 11:30 AM) 98 % (10/20/21 7:22 AM) 99 % (10/20/21 3:09 AM) Pulse Rate [55-90 bpm] 75 bpm (10/20/21 11:30 AM) 71 bpm (10/20/21 7:22 AM) 70 bpm (10/20/21 3:09 AM) Body Mass Index [18.5-24.99] 21.76 (10/19/21 6:10 AM) 21.76 (10/15/21 9:32 AM) Blood Pressure [90-138/55-84 mm Hg] 129/68mm Hg (10/20/21 11:30 AM) 137/69mm Hg (10/20/21 7:22 AM) 136/73mm Hg (10/20/21 3:09 AM) Respiratory Rate [16-30 br/min] 18 br/min (10/20/21 11:30 AM) 16 br/min (10/20/21 10:36 AM) 18 br/min (10/20/21 8:14 AM) Temperature [96.8-100.4 DegF] 99.7 DegF (10/20/21 11:30 AM) 100.2 DegF (10/20/21 7:22 AM) 99.6 DegF (10/20/21 3:09 AM) Liters per Minute 5 L/min (10/19/21 1:00 PM) 5 L/min (10/19/21 12:15 PM) 6 L/min (10/19/21 11:30 AM) Mode of Delivery (Oxygen) Room air (10/20/21 11:30 AM) Room air (10/20/21 7:22 AM) Room air (10/20/21 3:09 AM) Blood pressure sites Arm, right (10/20/21 11:30 AM) Arm, right (10/20/21 7:22 AM) Arm, right (10/20/21 3:09 AM) Temperature Route Oral (10/20/21 11:30 AM) Oral (10/20/21 7:22 AM) Oral (10/20/21 3:09 AM) Dry Weight 70.5 kg (10/15/21 9:32 AM)
--- OUTSIDE RECORDS SUMMARY | 2022-06-05 02:22 | XMS_ITS | Continuity of Care Document ---
Author Name Unknown Organization [facility] ter Address [address] [place] [address]- Care Team Providers Care Waiter/Waitress Take Out Name Role Phone Ronaldo Jaramillo MD Primary Care Physician Parker whitney [place] [facility] [place] - 09/07/[address] [address]- Encounter Diagnosis Opiate use(Final) - 09/07/21 Discharge Disposition: A-D/C Home Attending Physician: Jean Conn MD Admitting Physician: Jean Conn MD Referring Physician: Not on Staff, Referring MD Allergies, Adverse Reactions, Alerts No Known Allergies Immunizations Given and Recorded Vaccine Date Status Refusal Reason tetanus/diphtheria/pertussis, acel(Tdap) 10/16/18 Given pneumococcal 23-valent vaccine 1 08/31/11 Given tetanus-diphtheria toxoids (Td) 2 01/07/09 Given 1Admin Note: VIS GIVEN 12/03/08 2Admin Note: VIS GIVEN 01/16/08 Medications Prozac 20 mg oral capsule 1 capsule = 20 mg, By Mouth, Daily, # 30 capsule, 1 Refills, Maintenance, Capsule Start Date: 09/10/11 Stop Date: 11/09/11 Status: Ordered Problem List Condition Effective Dates Status Health Status Inform ant BRBPR - Bright red blood per rectum(Confirmed) 10/07/10 Active History of hip surgery(Confirmed) 1 Active OCD - Obsessive-compulsive disorder(Confirmed) Active Polysubstance abuse(Confirmed) Active Solitary nodule of lung(Confirmed) 2 05/08/10 Active 1LEFT HIP SURGERY 2Documented in CT scan 04/2010 Vital Signs Most recent to oldest [Reference Range]: 1 2 Oxygen Saturation [94-100 %] 99 % (09/07/21 2:28 PM) 97 % (09/07/21 10:47 AM) Pulse Rate [55-90 bpm] 57 bpm (09/07/21 2:28 PM) 61 bpm (09/07/21 10:47 AM) Blood Pressure [90-138/55-84 mm Hg] 114/ 73mm Hg (09/07/21 2:28 PM) 90/56mm Hg (09/07/21 10:47 AM) Respiratory Rate [16-30 br/min] 74 br/mi n *H* (09/07/21 2:28 PM) 11 br/min *L* (09/07/21 10:47 AM) Temperature [96.8-100.4 DegF] 98.3 DegF (09/07/21 10:47 AM) Mode of Delivery (Oxygen) Room air (09/07/21 2:28 PM) Room air (09/07/21 10:47 AM) Temperature Route Oral (09/07/21 10:47 AM)
--- OUTSIDE RECORDS SUMMARY | 2022-06-05 02:22 | XMS_ITS | Continuity of Care Document ---
Author Name Unknown Organization [facility] Address [address] [place] [id number]- Care Team Providers Care Pulley Maintainer Name Role Phone Clint MACIAS, Ronaldo Primary Care Physician Parker whitney Encounter [facility] [place] Date(s): 10/20/21 - 11/19/[address] [address] Allergies, Adverse Reactions, Alerts No Known Allergies Immunizations Given and Recorded Vaccine Date Status Refusal Reason SARS-CoV-2 (COVID-19) Ad26 vaccine 12/22/20 Record ed tetanus/diphtheria/pertussis, acel(Tdap) 10/16/18 Given pneumococcal 23-valent vaccine 1 08/31/11 Given tetanus-diphtheria toxoids (Td) 2 01/07/09 Given 1Admin Note: VIS GIVEN 12/03/08 2Admin Note: VIS GIVEN 01/16/08 Medications acetaminophen 500 mg oral tablet 2 tablet = 1,000 mg, By Mouth, 3 times a day, PRN as needed for pain, for 30 days, # 100 tablet, 1 Refills, Acute 01/10/22 16:52:00 EST, 11/11/21 16:52:00 EDT, Tablet, [id number], Partial fill upon patient request if the prescription is for a... Start Date: 11/11/21 Stop Date: 01/10/22 Status: Ordered folic acid 1 mg oral tablet 1 mg, 1, tablet, By Mouth, Daily, # 90 tablet, Refills 3, Tot. Refills 3, Maintenance, 11/19/21 13:35:00 EDT, Route to Pharmacy Electronically, [id number], Partial fill upon patient request if the prescription is for a schedule II opioid drug.... Start Date: 11/19/21 Status: Ordered Methadone = 130 mg, By Mouth, Daily, 0 Refills, Maintenance, 10/15/21 9:26:00 EDT, Partial fill upon patient request if the prescription is for a schedule II opioid drug. Start Date: 10/15/21 Status: Ordered multivitamin Multiple Vitamins oral tablet 1 tablet, By Mouth, Daily, # 90 tablet, 3 Refills, Maintenance, 11/19/21 13:36:00 EDT, Tablet, [id number], Partial fill upon patient request if the prescription is for a schedule II opioid drug., 1 tablet By Mouth Daily, 180, cm, 11/11/21 14:5... Start Date: 11/19/21 Status: Ordered Narcan 4 mg/0.1 mL nasal spray See Instructions, 4 mg Once through nostrils may repeat every 2 to 3 minutes until patient responds, # 2 each, 2 Refills, Soft Stop, 11/11/21 16:52:00 EDT, [id number], Partial fill upon patient request if the prescription is for a schedule... Start Date: 11/11/21 Status: Ordered Oystercal-D 500 mg-125 intl units oral tablet 1 tablet, By Mouth, 2 times a day, # 180 tablet, 3 Refills, Maintenance, 11/19/21 13:35:00 EDT, Tablet, [facility][id number], Partial fill upon patient request if the prescription is for a schedule II opioid drug., 1 tablet By Mouth 2 times a day, 180,... Start Date: 11/19/21 Status: Ordered pantoprazole 40 mg [...] mg, 1, tablet, By Mouth, Daily, for 90 days, # 90 tablet, Refills 3, Tot. Refills 3, Acute 11/14/22 13:36:00 EDT, 11/19/21 13:36:00 EDT, Route to Pharmacy Electronically, [facility]/pharm[facility][id number], Partial fill upon patient request if the prescription is... Start Date: 11/19/21 Stop Date: 11/14/22 Status: Ordered thiamine 100 mg oral tablet 100 mg, 1, tablet, By Mouth, 2 times a day, for 90 days, # 180 tablet, Refills 3, Tot. Refills 3, Acute 11/14/22 13:37:00 EDT, 11/19/21 13:37:00 EDT, [id number] Partial fill upon patient request if the prescr... Start Date: 11/19/21 Stop Date: 11/14/22 Status: Ordered Problem List Condition Effective Dates Status Health Status Inform ant BRBPR - Bright red blood per rectum(Confirmed) 10/07/10 Active History of hip surgery(Confirmed) 1 Active OCD - Obsessive-compulsive disorder(Confirmed) Active Polysubstance abuse(Confirmed) Active Solitary nodule of lung(Confirmed) 2 05/08/10 Active 1LEFT HIP SURGERY 2Documented in CT scan 04/2010 Care Team Personnel Name: Clint MACIAS, Ronaldo
--- OUTSIDE RECORDS SUMMARY | 2022-06-05 02:22 | XMS_ITS | Continuity of Care Document ---
Author Name Unknown Organization [facility] ter Address [address] [place] [address]- Care Team Providers Care Executive Manager Name Role Phone Anastacio MCLEOD, Daysi Antunez Primary Care Physician Encounter [facility] [place] Date(s): 12/21/21 - 12/22/[address] [address]- Discharge Disposition: A-D/C Home Attending Physician: Ki Lea MD Admitting Physician: Ki Lea MD Referring Physician: Not on Staff, Referring MD Results Orders for Microbiology Reports Name Date Blood Culture 12/21/21 Blood Culture #2 12/21/21 Microbiology Reports TEST:Blood Culture STATUS:Unauthenticated BODY SITE: SOURCE:Blood COLLECTED DATE/TIME:12/21/21 6:36 PM Blood Culture SPECIMEN DESCRIPTION : BLOOD LEFT ARM SPECIAL REQUESTS : NONE CULTURE : NO GROWTH AFTER 24 HOURS REPORT STATUS : PRELIMINARY REPORT TEST:Blood Culture, Second Order STATUS:Unauthenticated BODY SITE: SOURCE:Blood COLLECTED DATE/TIME:12/21/21 6:36 PM Blood Culture, Second Order SPECIMEN DESCRIPTION : BLOOD RIGHT ARM SPECIAL REQUESTS : NONE CULTURE : NO GROWTH AFTER 24 HOURS REPORT STATUS : PRELIMINARY REPORT Radiology Reports * Exam Date Time Procedure Performing Provider Status 12/21/21 7:09 PM Chest Portable Shanti Brantley; Au th (Verified) Notes: (Chest Portable) Reason For Exam: Shortness of Breath RESULT: Chest Portable Chest Portable Reason: Shortness of Breath; Clinical Question(s): Pneumonia COMPARISON: None. FINDINGS: LINES AND TUBES: None. LUNGS AND PLEURA: Low lung volumes with mild basilar atelectasis. Lungs are otherwise clear with no consolidation. No pleural effusion. No pneumothorax. HEART, MEDIASTINUM AND LEW: Heart is normal in size. Normal mediastinal and hilar contour. BONES AND SOFT TISSUES: No acute abnormality. IMPRESSION: Study limited by low lung volumes. No acute abnormality. WSN: [id number] Ordering Physician: Jose Carlos Sutton Dictated By: Wayne Barillas MD Dictated Date/Time: 12/21/21 7:17 pm Reviewed By: Wayne Barillas MD Signed By: Wayne Barillas MD Signed Date/Time: 12/21/21 7:17 pm Transcribed By: CSRajendra Transcribed Date/Time: 12/21/21 7:17 pm Vital Signs Most recent to oldest [Reference Range]: 1 2 3 Oxygen Saturation [94-100 %] 100 % (12/22/21 6:30 AM) 100 % (12/22/21 3:09 AM) 100 % (12/21/21 10:54 PM) Pulse Rate [55-90 bpm] 62 bpm (12/22/21 6:30 AM) 55 bpm (12/22/21 3:09 AM) 66 bpm (12/21/21 10:54 PM) Blood Pressure [90-138/55-84 mm Hg] 102/74mm Hg (12/22/21 6:30 AM) 98/74mm Hg (12/22/21 3:09 AM) 103/74mm Hg (12/21/21 10:54 PM) Respiratory Rate [16-30 br/min] 18 br/min (12/22/21 6:30 AM) 17 br/min (12/22/21 3:09 AM) 17 br/min (12/21/21 10:54 PM) Mode of Delivery (Oxygen) Room air (12/22/21 6:30 AM) Room air (12/22/21 3:09 AM) Room air (12/21/21 10:54 PM) Blood pressure sites Arm, left (12/21/21 9:28 PM) Portable XR Chest Views * BHSPowerscribe , CIS S: TRANSCRIBE Wayne Barillas MD: VERIFY Event Display: Result: Authored Date: [id number] Chest Portable Reason: Shortness of Breath; Clinical Question(s): Pneumonia COMPARISON: None. FINDINGS: LINES AND TUBES: None. LUNGS AND PLEURA: Low lung volumes with mild basilar atelectasis. Lungs are otherwise clear with no consolidation. No pleural effusion. No pneumothorax. HEART, MEDIASTINUM AND LEW: Heart is normal in size. Normal mediastinal and hilar contour. BONES AND SOFT TISSUES: No acute abnormality. IMPRESSION: Study limited by low lung volumes. No acute abnormality. WSN: [id number] Ordering Physician: Jose Carlos Sutton Dictated By: Wayne Barillas MD Dictated Date/Time: 12/21/21 7:17 pm Reviewed By: Wayne Barillas MD Signed By: Wayne Barillas MD Signed Date/Time: 12/21/21 7:17 pm Transcribed By: SHANTEL Transcribed Date/Time: 12/21/21 7:17 pm Patient Care team information Personnel Name: Daysi Chaves NP Address: Address: [address] [place] [address]-
--- OUTSIDE RECORDS SUMMARY | 2022-06-05 02:22 | XMS_ITS | Continuity of Care Document ---
Author Name Unknown Organization [facility] ter Address [address] [place] [id number]- Care Team Providers Care Media Monitor Name Role Phone Ronaldo Jaramillo MD Primary Care Physician Parker whitney Encounter [facility] [id number] Date(s): 12/04/21 - 12/05/[address] [address]- Discharge Disposition: A-D/C Home Attending Physician: Jace Saba MD Admitting Physician: Jace Saba MD Referring Physician: Not on Staff, Referring [...] 01/10/22 16:52:00 EST, 11/11/21 16:52:00 EDT, Tablet, [id number], Partial fill upon patient request if the prescription is for a... Start Date: 11/11/21 Stop Date: 01/10/22 Status: Ordered folic acid 1 mg oral tablet 1 mg, 1, tablet, By Mouth, Daily, # 90 tablet, Refills 3, Tot. Refills 3, Maintenance, 11/19/21 13:35:00 EDT, Route to Pharmacy Electronically, [id number], Partial fill upon patient request if the [...] 3 Refills, Maintenance, 11/19/21 13:36:00 EDT, Tablet, [id number], Partial fill upon patient request [...] 3 Refills, Maintenance, 11/19/21 13:35:00 EDT, Tablet, [id number], Partial fill upon patient request [...] capsule, 1 Refills, Maintenance, Capsule Start Date: 7/13/12 Stop Date: 11/09/11 Status: Ordered pyridoxine 50 mg oral tablet 50 mg, 1, tablet, By Mouth, Daily, for 90 days, # 90 tablet, Refills 3, Tot. Refills 3, Acute 11/14/22 13:36:00 EDT, 11/19/21 13:36:00 EDT, Route to Pharmacy Electronically, [facility]/pharmacy #[id number], Partial fill upon patient request if the prescription is... Start Date: 11/19/21 Stop Date: 11/14/22 Status: Ordered thiamine 100 mg oral tablet 100 mg, 1, tablet, By Mouth, 2 times a day, for 90 days, # 180 tablet, Refills 3, Tot. Refills 3, Acute 11/14/22 13:37:00 EDT, 11/19/21 13:37:00 EDT, Route to Pharmacy Electronically, [facility]/pharmacy #[id number], Partial fill upon patient request if the prescr... Start Date: 11/19/21 Stop Date: 11/14/22 Status: Ordered Problem List Condition Confirmation Course Effective Dates Status H ealth Status Informant BRBPR - Bright red blood per rectum Confirmed 10/07/10 Active History of hip surgery 1 Confirmed Active OCD - Obsessive-compulsive disorder Confirmed Active Polysubstance abuse Confirmed Active Solitary nodule of lung 2 Confirmed 05/08/10 Active 1LEFT HIP SURGERY 2Documented in CT scan 04/2010 Vital Signs Most recent to oldest [Reference Range]: 1 2 3 Oxygen Saturation [94-100 %] 99 % (12/05/21 1:00 AM) 100 % (12/04/21 11:01 PM) 100 % (12/04/21 6:47 PM) Pulse Rate [55-90 bpm] 68 bpm (12/05/21 1:00 AM) 57 bpm (12/04/21 11:01 PM) 68 bpm (12/04/21 6:47 PM) Blood Pressure [90-138/55-84 mm Hg] 115/86mm Hg (12/05/21 1:00 AM) 111/81mm Hg (12/04/21 11:01 PM) 104/80mm Hg (12/04/21 6:47 PM) Respiratory Rate [16-30 br/min] 18 br/min (12/05/21 1:00 AM) 16 br/min (12/04/21 11:01 PM) 18 br/min (12/04/21 4:42 PM) Temperature [96.8-100.4 DegF] 98.2 DegF (12/05/21 1:00 AM) 97.7 DegF (12/04/21 11:01 PM) 98.9 DegF (12/04/21 2:06 PM) Mode of Delivery (Oxygen) Room air (12/05/21 1:00 AM) Room air (12/04/21 11:01 PM) Room air (12/04/21 6:47 PM) Temperature Route Oral (12/04/21 2:06 PM) Patient Care team information Personnel Name: Ronaldo Jaramillo MD
--- OUTSIDE RECORDS SUMMARY | 2022-06-05 02:22 | XMS_ITS | Continuity of Care Document ---
Author Name Unknown Organization [facility] Address [address] [place] [address]- Care Team Providers Care Planning Advisor Name Role Phone Not on Staff, PCP Primary Care Physician Unavail able Encounter [facility] Date(s): 02/04/22 - 03/06/22 [facility] [address], [place] [address] Attending Physician: Jeffy Nugent Admitting Physician: AdmJeffy urrutia Referring Physician: AdmtrJeffy Allergies, Adverse Reactions, Alerts No Known Allergies Immunizations Given and Recorded Vaccine Date Status Refusal Reason tetanus/diphtheria/pertussis, acel(Tdap) 01/27/22 Given tetanus/diphtheria/pertussis, acel(Tdap) 10/16/18 Given SARS-CoV-2 (COVID-19) Ad26 vaccine 12/22/20 Record ed pneumococcal 23-valent vaccine 1 08/31/11 Given tetanus-diphtheria toxoids (Td) 2 01/07/09 Given 1Admin Note: VIS GIVEN 12/03/08 2Admin Note: VIS GIVEN 01/16/08 Medications Methadone = 135 mg, By Mouth, Daily, 0 Refills, Maintenance, 10/15/21 9:26:00 EDT, Partial fill upon patient request if the prescription is for a schedule II opioid drug. Start Date: 10/15/21 Status: Ordered Narcan 4 mg/0.1 mL nasal spray See Instructions, 4 mg Once through nostrils may repeat every 2 to 3 minutes until patient responds, # 2 each, 2 Refills, Soft Stop, 11/11/21 16:52:00 EDT, [facility]/pharmacy #[id number], Partial fill upon patient request if the prescription is for a schedule... Start Date: 11/11/21 Status: Ordered Problem List Condition Confirmation Course Effective Dates Status H ealth Status Informant BRBPR - Bright red blood per rectum Confirmed 10/07/10 Active History of hip surgery 1 Confirmed Active OCD - Obsessive-compulsive disorder Confirmed Active Polysubstance abuse Confirmed Active Solitary nodule of lung 2 Confirmed 05/08/10 Active 1LEFT HIP SURGERY 2Documented in CT scan 04/2010 Social History Social History Type Response Smoking Status 10 or more cigarette s (1/2 pack or more)/day in last 30 days entered on: 01/05/22 Sex Patient Care team information Care Team Personnel Name: Shasha KHAN, Tete Siegel Position: S RN Member Role: Primary Care Nurse Name: Khushboo Barron RN Position: S RN Member Role: Primary Care Nurse Name: Alana Mccollum RN Position: [facility] RN Member Role: Primary Care Nurse Name: Deisi Macias RN Position: S RN Member Role: Primary Care Nurse Name: Not on Staff, PCP Position: [facility] Physician (General Medicine) Member Role: PCP Name: Leann Otoole RN Position: [facility] RN Member Role: Primary Care Nurse Name: Manuel Anderson RN Position: [facility] RN Member Role: Primary Care Nurse Name: Greg Greene MD Position: [facility] Psychiatry MD Member Role: Lifetime Consulting Physician Address: Address: [address] [place] [address] [place] Care Team Related Persons Name: STEW REYNOLDS Address: [place] [address] Name: MARINO CASTREJON Address: home [address] [place] [id number]
--- OUTSIDE RECORDS SUMMARY | 2022-06-05 02:22 | XMS_ITS | Continuity of Care Document ---
Author Name Unknown Organization [facility] Address [address] [place] [address]- Care Team Providers Care Dry Cleaning Supervisor Name Role Phone Ronaldo Jaramillo MD Primary Care Physician Parker whitney Encounter [facility] Date(s): 11/11/21 - 12/11/21 [facility] [address] [place] [id number] Attending Physician: Jeffy Nugent Admitting Physician: Jeffy Nugent Referring Physician: AdmtrJeffy Allergies, Adverse Reactions, Alerts [...] 01/10/22 16:52:00 EST, 11/11/21 16:52:00 EDT, Tablet, [facility]/pharmacy #[id number], Partial fill upon patient request if the prescription is for a... Start Date: 11/11/21 Stop Date: 01/10/22 Status: Ordered folic acid 1 mg oral tablet 1 mg, 1, tablet, By Mouth, Daily, # 90 tablet, Refills 3, Tot. Refills 3, Maintenance, 11/19/21 13:35:00 EDT, Route to Pharmacy Electronically, [id number], Partial fill upon patient request if the [...] 11/19/21 13:36:00 EDT, Route to Pharmacy Electronically, [facility]/pharmacy #[id number], Partial fill upon patient request if the prescription is... Start Date: 11/19/21 Stop Date: 11/14/22 Status: Ordered thiamine 100 mg oral tablet 100 mg, 1, tablet, By Mouth, 2 times a day, for 90 days, # 180 tablet, Refills 3, Tot. Refills 3, Acute 11/14/22 13:37:00 EDT, 11/19/21 13:37:00 EDT, Route to Pharmacy Electronically, [facility]/pharmacy #[id number], Partial fill upon patient request if [...] HIP SURGERY 2Documented in CT scan 04/2010 Patient Care team information Personnel Name: Clint MACIAS, Ronaldo
--- OUTSIDE RECORDS SUMMARY | 2022-06-05 02:23 | XMS_ITS | Continuity of Care Document ---
Author Name Unknown Organization [facility] Address [address] [place] [address]- Care Team Providers Care Systems Eng Name Role Phone Not on Staff, PCP Primary Care Physician Unavail able [facility]counter [facility] Date(s): 12/21/21 - 03/06/22 [facility] [address] [place], [place] [id number] Encounter Diagnosis OCD - Obsessive-compulsive disorder(Discharge Diagnosis) - 02/03/22 Polysubstance abuse(Discharge Diagnosis) - 02/03/22 Solitary nodule of lung(Discharge Diagnosis) - 02/03/22 Health care maintenance(Discharge Diagnosis) - 02/03/22 Attending Physician: Daysi Chaves NP Admitting Physician: Daysi Chaves NP Allergies, Adverse Reactions, Alerts No Known Allergies [...] HIP SURGERY 2Documented in CT scan 04/2010 Diagnosis Diagnosis Type Effective Dates Health Status Clinical Service Informant OCD - Obsessive-compulsiv e disorder Discharge Diagnosis 02/03/22 Polysubstance abuse Discharge Diagnosis 02/03/22 Solitary nodule of lung Discharge Diagnosis 02/03/22 Health care maintenance Discharge Diagnosis 02/03/22 Social History Social History Type Response Smoking Status 10 or more cigarette s (1/2 pack or more)/day in last 30 days entered on: 01/05/22 Sex Patient Care team information Care Team Personnel Name: Tete Pulliam RN Position: [facility] RN Member Role: Primary Care Nurse Name: Khushboo Barron RN Position: [facility] RN Member Role: Primary Care Nurse Name: Alana Mccollum RN Position: [facility] RN Member Role: Primary Care Nurse Name: Deisi Macias RN Position: [facility] RN Member Role: Primary Care Nurse Name: Not on Staff, PCP Position: [facility] Physician (General Medicine) Member Role: PCP Name: Leann Otoole RN Position: [facility] RN Member Role: Primary Care Nurse Name: Manuel Anderson RN Position: [facility] RN Member Role: Primary Care Nurse Name: Greg Greene MD Position: [facility] Psychiatry MD Member Role: Lifetime Consulting Physician Address: Address: [address] [place] [address]- Care Team Related Persons Name: STEW REYNOLDS Address: [place] [address] Name: MARINO CASTREJON Address: home [address] [place] [id number]
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
--- OUTSIDE RECORDS SUMMARY | 2022-06-05 02:23 | XMS_ITS | Continuity of Care Document ---
Author Name Unknown Organization [facility] Address [address] [place] [address]- Care Team Providers Care Museum Curator Name Role Phone Not on Staff, PCP Primary Care Physician Unavail able Encounter [facility] Date(s): 04/19/22 - 05/19/22 [facility] [address] [place] [address]- Attending Physician: Jeffy Nugent Admitting Physician: Jeffy [...] 2 Refills, Soft Stop, 11/11/21 16:52:00 EDT, [facility]/pharmacy #[id number], Partial fill upon patient request if the [...] Care team information Care Team Personnel Name: Khushboo Barron RN Position: [facility] RN Member Role: Primary Care Nurse Name: Alana Mccollum RN Position: [facility] RN Member Role: Primary Care Nurse Name: Deisi Macias RN Position: [facility] RN Member Role: Primary Care Nurse Name: Not on Staff, PCP Position: [facility] Physician (General Medicine) Member Role: PCP Name: Leann Otoole RN Position: [facility] RN Member Role: Primary Care Nurse Name: Greg Greene MD Position: [facility] Psychiatry MD Member Role: Lifetime Consulting Physician Address: Address: [address] [place] [address]- Care Team Related Persons Name: STEW REYNOLDS Address: [place] [address] Name: MARINO CASTREJON Address: home [address] [place] [address]
--- OUTSIDE RECORDS SUMMARY | 2022-06-05 02:23 | XMS_ITS | Continuity of Care Document ---
Author Name Unknown Organization [facility] ter Address [address] [place] [address]- Care Team Providers Care Fabricator Assembler Metal Products Name Role Phone Not on Staff, PCP Primary Care Physician Unavail able [place] [facility] [place] 04/25/[address] [address]- Discharge Disposition: A-D/C Home Attending Physician: Mahi Agrawal MD Admitting Physician: Mahi Agrawal MD Referring Physician: Not on Staff, Referring MD Allergies, Adverse Reactions, Alerts No Known Allergies Results Radiology Reports * Exam Date Time Procedure Performing Provider Status 04/24/22 6:13 PM Chest Portable Glai Tian; Auth (Verified) Notes: (Chest Portable) Reason For Exam: Shortness of Breath RESULT: Chest Portable Chest Portable Hx of Present Illness: pt presents to ed via ems, pt was picked up by bystanders on side of road found face down, admitted to EtOH use, denies drug use, given narcan in the field, pt very agitated onarrival to ed, a ox3.; Reason: Shortness of Breath; Clinical Question(s): CHF COMPARISON: None. FINDINGS: LINES AND TUBES: None. LUNGS AND PLEURA: Increased interstitial markings. No confluent airspace opacity seen. Costophrenic angles are excluded from the [id number]. No effusion seen. No pneumothorax, although lung apices partially obscured by patient's chin. HEART, MEDIASTINUM AND LEW: Heart is at the upper limits of normal for size. Normal mediastinal and hilar contour. BONES AND SOFT TISSUES: No acute abnormality. IMPRESSION: Pulmonary edema. WSN: [id number] Ordering Physician: Ki Mata Dictated By: Anna Gaona MD Dictated Date/Time: 04/24/22 6:35 pm Reviewed By: Anna Gaona MD Signed By: Anna Gaona MD Signed Date/Time: 04/24/22 6:35 pm Transcribed By: SHANTEL Transcribed Date/Time: 04/24/22 6:34 pm * Exam Date Time Procedure Performing Provider Status 04/24/22 6:[address] Head/Brain W/O Contrast Donovantiffanyken Corine; Auth (Verified) Notes: (CT Head/Brain W/O Contrast) Reason For Exam: Trauma RESULT: CT Head/Brain W/O Contrast CT Head/Brain W/O Contrast INDICATION: Hx of Present Illness: pt presents to ed via ems, pt was picked up by bystanders on side of road found face down, admitted to EtOH use, denies drug use, given narcan in the field, pt veryagitated on arrival to ed, a ox3.; Reason: Trauma; Clinical Question(s): Hematoma; Order Comment: TECHNIQUE: Noncontrast head CT using axial technique and reconstructed in axial and coronal planes.Iterative reconstruction techniques are used to optimize dose and image quality. CTDIvol Head: 45.20 mGy, DLP Head: 965 mGy*cm. COMPARISON: None. FINDINGS: Dog Hair Clipper view findings, lines and tubes: None. BRAIN AND EXTRA-AXIAL SPACES: Motion degraded image quality despite repeat imaging. No parenchymal hemorrhage, midline shift, or mass effect. Rubi-white matter differentiation is wellpreserved. No acute infarct. Ventricles, sulci, and basilar cisterns are normal. No white matter lesions. No subarachnoid hemorrhage. No subdural or epidural collection. CALVARIUM, SKULL BASE, AND SOFT TISSUES: No fractures or suspicious bony lesions. Minimal mucosal thickening in maxillary and ethmoid air cells. Remainder of the paranasal sinuses and mastoid air cells are clear. Visualized orbits and globes are intact. The extracranial soft tissues are unremarkable. IMPRESSION: No acute intracranial pathology. WSN: [id number] Ordering Physician: Ki Mata Dictated By: Anna Gaona MD Dictated Date/Time: 04/24/22 6:24 pm Reviewed By: Anna Gaona MD Signed By: Anna Gaona MD Signed Date/Time: 04/24/22 6:24 pm Transcribed By: SHANTEL Transcribed Date/Time: 04/24/22 6:18 pm Vital Signs Most recent to oldest [Reference Range]: 1 2 3 Oxygen Saturation [94-100 %] 96 % (04/25/22 8:01 AM) 97 % (04/25/22 3:37 AM) 98 % (04/25/22 2:51 AM) Pulse Rate [55-90 bpm] 72 bpm (04/25/22 8:01 AM) 57 bpm (04/25/22 3:37 AM) 51 bpm *L* (04/25/22 2:51 AM) Blood Pressure [90-138/55-84 mm Hg] 102/69mm Hg (04/25/22 8:01 AM) 97/67mm Hg (04/25/22 3:37 AM) 112/78mm Hg (04/25/22 2:51 AM) Respiratory Rate [16-30 br/min] 18 br/min (04/25/22 8:01 AM) 12 br/min *L* (04/25/22 3:37 AM) 7 br/min *L* (04/25/22 2:51 AM) Temperature [96.8-100.4 DegF] 97.7 DegF (04/25/22 2:51 AM) 97.6 DegF (04/24/22 3:42 PM) Liters per Minute 3 L/min (04/24/22 6:06 PM) 3 L/min (04/24/22 5:06 PM) Mode of Delivery (Oxygen) Room air (04/25/22 8:01 AM) Room air (04/25/22 3:37 AM) room air (04/25/22 2:51 AM) Blood pressure sites Arm, left (04/25/22 8:01 AM) Arm, left (04/25/22 2:51 AM) Temperature Route Oral (04/25/22 2:51 AM) Oral (04/24/22 3:42 PM) EKG study * Event Display: EKG Authored Date: * Event Display: ECG 12-Lead Authored Date: Please click on pdf link to open report * Event Display: ECG 12-Lead Authored Date: Ventricular Rate: 51 BPM Atrial Rate: 51 BPM P-R Interval: 126 ms QRS Duration: 94 ms Q-T Interval: 478 ms QTC Calculation(Bazett): 440 ms P Sod: 46 degrees R Sod: 69 degrees T Sod: 4 degrees Sinus bradycardia Otherwise normal ECG No previous ECGs available Confirmed by DORA HANEY MD ([id number]) on 04/25/2022 11:53:21 AM [place]: DORA HANEY MD Note * Winsome Horn MD J: PERFORM, SIGN, VERIFY Event Display: Patient Education Handout Authored Date: CT Head WO contrast * BHSPowerscribe , CIS S: TRANSCRIBE Anna Gaona MD: VERIFY Event Display: Result: Authored Date: [id number] CT Head/Brain W/O Contrast INDICATION: Hx of Present Illness: pt presents to ed via ems, pt was picked up by bystanders on side of road found face down, admitted to EtOH use, denies drug use, given narcan in the field, pt veryagitated on arrival to ed, a ox3.; Reason: Trauma; Clinical Question(s): Hematoma; Order Comment: TECHNIQUE: Noncontrast head CT using axial technique and reconstructed in axial and coronal planes.Iterative reconstruction techniques are used to optimize dose and image quality. CTDIvol Head: 45.20 mGy, DLP Head: 965 mGy*cm. COMPARISON: None. FINDINGS: Dog Hair Clipper view findings, lines and tubes: None. BRAIN AND EXTRA-AXIAL SPACES: Motion degraded image quality despite repeat imaging. No parenchymal hemorrhage, midline shift, or mass effect. Rubi-white matter differentiation is wellpreserved. No acute infarct. Ventricles, sulci, and basilar cisterns are normal. No white matter lesions. No subarachnoid hemorrhage. No subdural or epidural collection. CALVARIUM, SKULL BASE, AND SOFT TISSUES: No fractures or suspicious bony lesions. Minimal mucosal thickening in maxillary and ethmoid air cells. Remainder of the paranasal sinuses and mastoid air cells are clear. Visualized orbits and globes are intact. The extracranial soft tissues are unremarkable. IMPRESSION: No acute intracranial pathology. WSN: [id number] Ordering Physician: Ki Mata Dictated By: Anna Gaona MD Dictated Date/Time: 04/24/22 6:24 pm Reviewed By: Anna Gaona MD Signed By: Anna Gaona MD Signed Date/Time: 04/24/22 6:24 pm Transcribed By: SHANTEL Transcribed Date/Time: 04/24/22 6:18 pm Portable XR Chest Views * BHSPowerscribe , CIS S: TRANSCRIBE Anna Gaona MD: VERIFY Event Display: Result: Authored Date: [id number] Chest Portable Hx of Present Illness: pt presents to ed via ems, pt was picked up by bystanders on side of road found face down, admitted to EtOH use, denies drug use, given narcan in the field, pt very agitated onarrival to ed, a ox3.; Reason: Shortness of Breath; Clinical Question(s): CHF COMPARISON: None. FINDINGS: LINES AND TUBES: None. LUNGS AND PLEURA: Increased interstitial markings. No confluent airspace opacity seen. Costophrenic angles are excluded from the [id number]. No effusion seen. No pneumothorax, although lung apices partially obscured by patient's chin. HEART, MEDIASTINUM AND LEW: Heart is at the upper limits of normal for size. Normal mediastinal and hilar contour. BONES AND SOFT TISSUES: No acute abnormality. IMPRESSION: Pulmonary edema. WSN: [id number] Ordering Physician: Ki Mata Dictated By: Anna Gaona MD Dictated Date/Time: 04/24/22 6:35 pm Reviewed By: Anna Gaona MD Signed By: Anna Gaona MD Signed Date/Time: 04/24/22 6:35 pm Transcribed By: SHANTEL Transcribed Date/Time: 04/24/22 6:34 pm Patient Care team information Care Team Personnel Name: Not on Staff, PCP Position: [facility] Physician (General Medicine) Member Role: PCP Name: Jairo Pandya Position: [facility] ED [facility] Member Role: Patient Care Provider Name: Corrie Breaux RN Position: [facility] ED RN W/OE and Tasks Member Role: Patient Care Provider Name: Trip Foster Position: [facility] ED TA [facility] Member Role: Patient Care Provider Name: Winsome Horn MD Position: S Resident Member Role: ED Resident Address: Address: [address] [place] [address] Emergency [place], [place] [address] Name: Mahi Agrawal MD Position: [facility] ED Medicine MD Member Role: Admitting Physician Address: Address: [address] [place] [address] Emergency Medicine [place], [place] [address]
--- OUTSIDE RECORDS SUMMARY | 2022-06-05 02:23 | XMS_ITS | Continuity of Care Document ---
Author Name Unknown Organization [facility] Address [address] [place] [address]- Care Team Providers Care Food Packer Name Role Phone Not on Staff, PCP Primary Care Physician Unavail able Encounter [facility] [place] Date(s): 04/19/22 - 05/19/22 [facility] [address] [place] [address]- Attending Physician: Dillan Dean MD Admitting Physician: Dillan Dean MD Allergies, Adverse Reactions, Alerts No Known [...] 2 Refills, Soft Stop, 11/11/21 16:52:00 EDT, [facility]/pharmacy #[id number], Partial fill upon patient request if the [...] Team Personnel Name: Khushboo Barron RN Position: [facility] RN Member Role: Primary Care Nurse Name: Alana Mccollum RN Position: [facility] RN Member Role: Primary Care Nurse Name: Deisi Macias RN Position: [facility] RN Member Role: Primary Care Nurse Name: Not on Staff, PCP Position: [facility] Physician (General Medicine) Member Role: PCP Name: Leann Otoole RN Position: [facility] RN Member Role: Primary Care Nurse Name: Greg Greene MD Position: [facility] Psychiatry MD Member Role: Lifetime Consulting Physician Address: Address: [address] [place] [address]- Care Team Related Persons Name: STEW REYNOLDS Address: [place] [address] Name: MARINO CASTREJON Address: home [address] [place] [id number]
--- OUTSIDE RECORDS SUMMARY | 2022-06-05 02:23 | XMS_ITS | Continuity of Care Document ---
Author Name Unknown Organization [facility] ter Address [address] [place] [id number]- Care Team Providers Care Sole Painter Name Role Phone Raquel MACIAS, Angel Luis El Primary Care Physician Encounter [facility] [place] Date(s): 10/14/21 - 10/14/[address] [address]- Encounter Diagnosis Mandible fracture(Final) - 10/14/21 Right side mandibular fracture.(Final) - 10/14/21 Discharge Disposition: A-D/C AMA Attending Physician: Eyad Rubin MD Admitting Physician: Jose Daniel Mora MD Referring Physician: Not on Staff, Referring [...] Exam Date Time Procedure Performing Provider Status 10/14/21 12:12 PM Shoulder Min 2 Views Left Ankush Fisher; Auth (Verified) Notes: (Shoulder Min 2 Views Left) Reason For Exam: Trauma RESULT: Shoulder Min 2 Views Left Left shoulder 2 views dated October 14, 2021. No prior studies are available. HISTORY: Pain. FINDINGS: This examination shows no evidence of fracture or dislocation. Joint spaces are well preserved. IMPRESSION: Negative examination. Examination [address]. Thank you for allowing me to participate in the care of this patient. WSN: [id number] Ordering Physician: Harvey Marie Dictated By: Karri Wing MD Dictated Date/Time: 10/14/21 1:21 pm Reviewed By: Karri Wing MD Signed By: Karri Wing MD Signed Date/Time: 10/14/21 1:21 pm Transcribed By: SHANTEL Transcribed Date/Time: 10/14/21 1:21 pm * Exam Date Time Procedure Performing Provider Status 10/14/21 9:38 AM Chest Portable Ana Snell (Verified) Notes: (Chest Portable) Reason For Exam: Shortness of Breath RESULT: Chest Portable Chest Portable performed upright at 9:18 AM Reason: Shortness of Breath; Clinical Question(s): Pleural Effusion. COMPARISON: Multiple prior chest x-rays, the most recent of which is dated 12/30/2018 FINDINGS: LINES AND TUBES: None. LUNGS AND PLEURA: Clear lungs. Normal pulmonary vascularity. No pleural effusion. No pneumothorax. HEART, MEDIASTINUM AND LEW: Heart is normal in size. Normal upper mediastinal and hilar contour. BONES AND SOFT TISSUES: Deformity of the mid left clavicle is seen, new as compared to 2019. IMPRESSION: 1. No acute pulmonary process. 2. Deformity at the mid left clavicle, new as compared to 2019. On the single image. On the single image, it is unclear if this represents an acute or chronic deformity. WSN: [id number] Ordering Physician: Harvey Marie Dictated By: Lore Fung MD Dictated Date/Time: 10/14/21 9:45 am Reviewed By: Lore Fung MD Signed By: Lore Fung MD Signed Date/Time: 10/14/21 9:45 am Transcribed By: SHANTEL Transcribed Date/Time: 10/14/21 9:41 am Vital Signs Most recent to oldest [Reference Range]: 1 2 3 Oxygen Saturation [94-100 %] 100 % (10/14/21 11:34 AM) 100 % (10/14/21 9:58 AM) 98 % (10/14/21 5:41 AM) Pulse Rate [55-90 bpm] 84 bpm (10/14/21 11:34 AM) 77 bpm (10/14/21 9:58 AM) 62 bpm (10/14/21 5:41 AM) Blood Pressure [90-138/55-84 mm Hg] 121/90mm Hg (10/14/21 11:34 AM) 113/73mm Hg (10/14/21 9:58 AM) 117/73mm Hg (10/14/21 5:41 AM) Respiratory Rate [16-30 br/min] 17 br/min (10/14/21 11:34 AM) 16 br/min (10/14/21 9:58 AM) 14 br/min *L* (10/14/21 5:41 AM) Temperature [96.8-100.4 DegF] 97.7 DegF (10/14/21 9:58 AM) 98.0 DegF (10/14/21 4:05 AM) Mode of Delivery (Oxygen) Room air (10/14/21 11:34 AM) Room air (10/14/21 9:58 AM) Room air (10/14/21 5:41 AM) Blood pressure sites Arm, right (10/14/21 11:34 AM) Arm, right (10/14/21 9:58 AM) Arm, right (10/14/21 4:05 AM) Temperature Route Oral (10/14/21 9:58 AM) Oral (10/14/21 4:05 AM)
--- OUTSIDE RECORDS SUMMARY | 2022-06-05 02:23 | XMS_ITS | Continuity of Care Document ---
Author Name Unknown Organization [facility] ter Address [address] [place] [address]- Care Team Providers Care Gig Tender Name Role Phone Ronaldo Jaramillo MD Primary Care Physician Parker whitney Encounter [facility] R [id number] Date(s): 10/22/21 - 10/23/[address] [address]- Discharge Disposition: A-D/C Home Attending Physician: Joy Lima MD Admitting Physician: Joy Lima MD Referring Physician: Not on Staff, Referring [...] 10/20/21 13:34:00 EDT, Route to Pharmacy Electronically, [facility], Partial fill upon patient request if the prescription... Start Date: 10/20/21 Stop Date: 10/25/21 Status: Ordered folic acid 1 mg oral tablet 1 mg, 1, tablet, By Mouth, Daily, # 30 tablet, Refills 0, Tot. Refills 0, Maintenance, 10/20/21 13:35:00 EDT, Route to Pharmacy Electronically, [facility], Partial fill upon patient request [...] 0 Refills, Maintenance, 10/20/21 13:36:00 EDT, Tablet, [facility], Partial fill upon patient request [...] 10/20/21 13:36:00 EDT, Route to Pharmacy Electronically, [facility], Partial fill upon patient request i... Start Date: 10/20/21 Stop Date: 11/03/21 Status: Ordered Oystercal-D 500 mg-125 intl units oral tablet 1 tablet, By Mouth, 2 times a day, # 60 tablet, 0 Refills, Maintenance, 10/20/21 13:35:00 EDT, Tablet, [facility], Partial fill upon patient request if [...] 10/20/21 13:36:00 EDT, Route to Pharmacy Electronically, [facility],Partial fill upon patient request if the prescripti... Start Date: 10/20/21 Stop Date: 11/19/21 Status: Ordered senna 187 mg oral tablet 2 tablet = 17.2 mg, By Mouth, Daily at bedtime, PRN constipation, # 12 tablet, 0 Refills, Acute 11/04/21 12:00:00 EDT, 10/20/21 13:37:00 EDT, Tablet, [facility], Partial fill upon patient request if the prescription is for a schedule II... Start Date: 10/20/21 Stop Date: 11/04/21 Status: Ordered thiamine 100 mg oral tablet 100 mg, 1, tablet, By Mouth, 2 times a day, for 30 days, # 60 tablet, Refills 0, Tot. Refills 0, Acute 11/19/21 13:37:00 EDT, 10/20/21 13:37:00 EDT, Route to Pharmacy Electronically, [facility], Partial fill upon patient request [...] 1 2 3 Oxygen Saturation [94-100 %] 98 % (10/23/21 6:50 AM) 100 % (10/23/21 5:45 AM) 100 % (10/23/21 4:19 AM) Pulse Rate [55-90 bpm] 76 bpm (10/23/21 6:50 AM) 78 bpm (10/23/21 5:45 AM) 78 bpm (10/23/21 4:19 AM) Blood Pressure [90-138/55-84 mm Hg] 107/54mm Hg (10/23/21 6:50 AM) 95/57mm Hg (10/23/21 5:45 AM) 98/60mm Hg (10/23/21 4:19 AM) Respiratory Rate [16-30 br/min] 17 br/min (10/23/21 6:50 AM) 15 br/min *L* (10/23/21 5:45 AM) 17 br/min (10/23/21 3:48 AM) Temperature [96.8-100.4 DegF] 98.0 DegF (10/23/21 6:50 AM) 97.8 DegF (10/23/21 3:48 AM) 98.4 DegF (10/22/21 11:22 PM) Mode of Delivery (Oxygen) Room air (10/23/21 6:50 AM) Room air (10/23/21 4:19 AM) Room air (10/23/21 3:48 AM) Temperature Route Oral (10/23/21 6:50 AM) Oral (10/23/21 3:48 AM) Axillary (10/22/21 11:22 PM) Care Team Personnel Name: Ronaldo Jaramillo MD
--- OUTSIDE RECORDS SUMMARY | 2022-06-05 02:23 | XMS_ITS | Continuity of Care Document ---
Author Name Unknown Organization [facility] ter Address [address] [place] [address]- Care Team Providers Care Salt Grinder Name Role Phone Not on Staff, PCP Primary Care Physician Unavail able Encounter [facility] Date(s): 01/27/22 - 01/27/[address] [address]- Encounter Diagnosis Eyebrow laceration(Final) - 01/27/22 Discharge Disposition: A-D/C Home Attending Physician: Dede Sotelo MD Admitting Physician: Dede Sotelo MD Referring Physician: Not on Staff, Referring [...] 2 Refills, Soft Stop, 11/11/21 16:52:00 EDT, [facility]/pharmacy #[id number], Partial fill upon patient request if the [...] Exam Date Time Procedure Performing Provider Status 01/27/22 8:[address] Cervical Spine W/O Contrast Aretha Lewis; Auth (Verified) Notes: (CT Cervical Spine W/O Contrast) Reason For Exam: Neck trauma, dangerous injury mechanism;Other: RESULT: CT Cervical Spine W/O Contrast CT Head/Brain W/O Contrast, CT Cervical Spine W/O Contrast INDICATION: Reason: Trauma; Clinical Question(s): Hematoma TECHNIQUE: Noncontrast head CT using axial technique was reconstructed in axial and coronal planes.Noncontrast spiral CT through the cervical spine was formatted in 3 planes. Automatic tube modulation was used for the cervical spine and iterative dose reconstruction was used for both the head and cervical spine to optimize scan parameters and image quality. CTDIvol Body: 9.40 mGy, DLP Body: 257 mGy*cm. CTDIvol Head: 39.40 mGy, DLP Head: 671 mGy*cm. COMPARISON: CT head dated 01/05/2022 FINDINGS: [employer] Builder View Findings, Lines and Tubes: None. BRAIN AND EXTRA-AXIAL SPACES: The study is mildly degraded by motion artifact near the skull base. No parenchymal hemorrhage, midline shift, or mass effect. Rubi-white matter differentiation is wellpreserved. No acute infarct. Ventricles, sulci, and basilar cisterns are normal. No white matter lesions. No subarachnoid hemorrhage. No subdural or epidural collection. CALVARIUM, SKULL BASE, AND SOFT TISSUES: No fractures or suspicious bony lesions. Mild chronic deformity of the anterior nasal bones again demonstrated. Soft tissue density demonstrated within the bilateral external auditory canals, may represent cerumen, similar to the prior study. The paranasal sinuses and mastoid air cells are clear. Visualized orbits and globes are intact. The extracranial soft tissues are unremarkable. CERVICAL SPINE: No fracture. No acute osseous abnormalities. Normal alignment. No locked or perched facet. Mild multilevel degenerative disc space narrowing andend plate irregularity. Multilevel spondylosis most pronounced at C5-6 which demonstrates a disc osteophyte complex and bilateral facet and uncinate hypertrophy resulting in mild spinal canal stenosis and bilateral neural foraminal narrowing. OTHER BONES: No acute abnormality. CERVICAL SOFT TISSUES AND LUNG APICES: Normal soft tissues. Visualized lung apices are clear. IMPRESSION: No acute abnormality of the head or cervical spine. Multilevel spondylosis of the cervical spine most pronounced at C5-6, as described above. WSN: [id number] Ordering Physician: Amos Garces Dictated By: Lukas Cooney MD Dictated Date/Time: 01/27/22 9:16 am Reviewed By: Lukas Cooney MD Signed By: Lukas Cooney MD Signed Date/Time: 01/27/22 9:16 am Transcribed By: SHANTEL Transcribed Date/Time: 01/27/22 9:08 am * Exam Date Time Procedure Performing Provider Status 01/27/22 8:[address] Head/Brain W/O Contrast Fátima Lewis; Auth (Verified) Notes: (CT Head/Brain W/O Contrast) Reason For Exam: Trauma RESULT: CT Head/Brain W/O Contrast CT Head/Brain W/O Contrast, CT Cervical Spine W/O Contrast INDICATION: Reason: Trauma; Clinical Question(s): Hematoma TECHNIQUE: Noncontrast head CT using axial technique was reconstructed in axial and coronal planes.Noncontrast spiral CT through the cervical spine was formatted in 3 planes. Automatic tube modulation was used for the cervical spine and iterative dose reconstruction was used for both the head and cervical spine to optimize scan parameters and image quality. CTDIvol Body: 9.40 mGy, DLP Body: 257 mGy*cm. CTDIvol Head: 39.40 mGy, DLP Head: 671 mGy*cm. COMPARISON: CT head dated 01/05/2022 FINDINGS: [employer] Builder View Findings, Lines and Tubes: None. BRAIN AND EXTRA-AXIAL SPACES: The study is mildly degraded by motion artifact near the skull base. No parenchymal hemorrhage, midline shift, or mass effect. Rubi-white matter differentiation is wellpreserved. No acute infarct. Ventricles, sulci, and basilar cisterns are normal. No white matter lesions. No subarachnoid hemorrhage. No subdural or epidural collection. CALVARIUM, SKULL BASE, AND SOFT TISSUES: No fractures or suspicious bony lesions. Mild chronic deformity of the anterior nasal bones again demonstrated. Soft tissue density demonstrated within the bilateral external auditory canals, may represent cerumen, similar to the prior study. The paranasal sinuses and mastoid air cells are clear. Visualized orbits and globes are intact. The extracranial soft tissues are unremarkable. CERVICAL SPINE: No fracture. No acute osseous abnormalities. Normal alignment. No locked or perched facet. Mild multilevel degenerative disc space narrowing andend plate irregularity. Multilevel spondylosis most pronounced at C5-6 which demonstrates a disc osteophyte complex and bilateral facet and uncinate hypertrophy resulting in mild spinal canal stenosis and bilateral neural foraminal narrowing. OTHER BONES: No acute abnormality. CERVICAL SOFT TISSUES AND LUNG APICES: Normal soft tissues. Visualized lung apices are clear. IMPRESSION: No acute abnormality of the head or cervical spine. Multilevel spondylosis of the cervical spine most pronounced at C5-6, as described above. WSN: [id number] Ordering Physician: Amos Garces Dictated By: Lukas Cooney MD Dictated Date/Time: 01/27/22 9:16 am Reviewed By: Eros MACIAS , [place] Signed By: Eros MACIAS [place] Signed Date/Time: 01/27/22 9:16 am Transcribed By: SHANTEL Transcribed Date/Time: 01/27/22 9:08 am Vital Signs Most recent to oldest [Reference Range]: 1 2 3 Oxygen Saturation [94-100 %] 98 % (01/27/22 11:10 AM) 99 % (01/27/22 9:40 AM) 97 % (01/27/22 7:32 AM) Pulse Rate [55-90 bpm] 78 bpm (01/27/22 11:10 AM) 82 bpm (01/27/22 9:40 AM) 74 bpm (01/27/22 7:32 AM) Blood Pressure [90-138/55-84 mm Hg] 122/76mm Hg (01/27/22 11:10 AM) 118/72mm Hg (01/27/22 9:40 AM) 104/69mm Hg (01/27/22 7:32 AM) Respiratory Rate [16-30 br/min] 17 br/min (01/27/22 11:10 AM) 18 br/min (01/27/22 9:40 AM) 20 br/min (01/27/22 7:32 AM) Temperature [96.8-100.4 DegF] 97.8 DegF (01/27/22 11:10 AM) 97.6 DegF (01/27/22 9:40 AM) 97.5 DegF (01/27/22 7:32 AM) Mode of Delivery (Oxygen) Room air (01/27/22 11:10 AM) Room air (01/27/22 9:40 AM) Room air (01/27/22 7:32 AM) Blood pressure sites Arm, right (01/27/22 11:10 AM) Arm, right (01/27/22 9:40 AM) Arm, right (01/27/22 7:32 AM) Temperature Route Oral (01/27/22 11:10 AM) Oral (01/27/22 9:40 AM) Oral (01/27/22 7:32 AM) Social History Social History Type Response Smoking Status 10 or more cigarette s (1/2 pack or more)/day in last 30 days entered on: 01/05/[address] Cervical spine WO contrast * Eros MACIAS , Arel: VERIFY Eros MACIAS , Arel: VERIFY Event Display: Result: Authored Date: CT Head/Brain W/O Contrast, CT Cervical Spine W/O Contrast INDICATION: Reason: Trauma; Clinical Question(s): Hematoma TECHNIQUE: Noncontrast head CT using axial technique was reconstructed in axial and coronal planes.Noncontrast spiral CT through the cervical spine was formatted in 3 planes. Automatic tube modulation was used for the cervical spine and iterative dose reconstruction was used for both the head and cervical spine to optimize scan parameters and image quality. CTDIvol Body: 9.40 mGy, DLP Body: 257 mGy*cm. CTDIvol Head: 39.40 mGy, DLP Head: 671 mGy*cm. COMPARISON: CT head dated 01/05/2022 FINDINGS: [employer] Builder View Findings, Lines and Tubes: None. BRAIN AND EXTRA-AXIAL SPACES: The study is mildly degraded by motion artifact near the skull base. No parenchymal hemorrhage, midline shift, or mass effect. Rubi-white matter differentiation is wellpreserved. No acute infarct. Ventricles, sulci, and basilar cisterns are normal. No white matter lesions. No subarachnoid hemorrhage. No subdural or epidural collection. CALVARIUM, SKULL BASE, AND SOFT TISSUES: No fractures or suspicious bony lesions. Mild chronic deformity of the anterior nasal bones again demonstrated. Soft tissue density demonstrated within the bilateral external auditory canals, may represent cerumen, similar to the prior study. The paranasal sinuses and mastoid air cells are clear. Visualized orbits and globes are intact. The extracranial soft tissues are unremarkable. CERVICAL SPINE: No fracture. No acute osseous abnormalities. Normal alignment. No locked or perched facet. Mild multilevel degenerative disc space narrowing andend plate irregularity. Multilevel spondylosis most pronounced at C5-6 which demonstrates a disc osteophyte complex and bilateral facet and uncinate hypertrophy resulting in mild spinal canal stenosis and bilateral neural foraminal narrowing. OTHER BONES: No acute abnormality. CERVICAL SOFT TISSUES AND LUNG APICES: Normal soft tissues. Visualized lung apices are clear. IMPRESSION: No acute abnormality of the head or cervical spine. Multilevel spondylosis of the cervical spine most pronounced at C5-6, as described above. WSN: [id number] Ordering Physician: Amos Garces Dictated By: Lukas Cooney MD Dictated Date/Time: 01/27/22 9:16 am Reviewed By: Lukas Cooney MD Signed By: Lukas Cooney MD Signed Date/Time: 01/27/22 9:16 am Transcribed By: SHANTEL Transcribed Date/Time: 01/27/22 9:[address] Head WO contrast * Eros MACIAS , Arel: VERIFY Eros MACIAS , Arel: VERIFY Event Display: Result: Authored Date: [id number] CT Head/Brain W/O Contrast, CT Cervical Spine W/O Contrast INDICATION: Reason: Trauma; Clinical Question(s): Hematoma TECHNIQUE: Noncontrast head CT using axial technique was reconstructed in axial and coronal planes.Noncontrast spiral CT through the cervical spine was formatted in 3 planes. Automatic tube modulation was used for the cervical spine and iterative dose reconstruction was used for both the head and cervical spine to optimize scan parameters and image quality. CTDIvol Body: 9.40 mGy, DLP Body: 257 mGy*cm. CTDIvol Head: 39.40 mGy, DLP Head: 671 mGy*cm. COMPARISON: CT head dated 01/05/2022 FINDINGS: [employer] Builder View Findings, Lines and Tubes: None. BRAIN AND EXTRA-AXIAL SPACES: The study is mildly degraded by motion artifact near the skull base. No parenchymal hemorrhage, midline shift, or mass effect. Rubi-white matter differentiation is wellpreserved. No acute infarct. Ventricles, sulci, and basilar cisterns are normal. No white matter lesions. No subarachnoid hemorrhage. No subdural or epidural collection. CALVARIUM, SKULL BASE, AND SOFT TISSUES: No fractures or suspicious bony lesions. Mild chronic deformity of the anterior nasal bones again demonstrated. Soft tissue density demonstrated within the bilateral external auditory canals, may represent cerumen, similar to the prior study. The paranasal sinuses and mastoid air cells are clear. Visualized orbits and globes are intact. The extracranial soft tissues are unremarkable. CERVICAL SPINE: No fracture. No acute osseous abnormalities. Normal alignment. No locked or perched facet. Mild multilevel degenerative disc space narrowing andend plate irregularity. Multilevel spondylosis most pronounced at C5-6 which demonstrates a disc osteophyte complex and bilateral facet and uncinate hypertrophy resulting in mild spinal canal stenosis and bilateral neural foraminal narrowing. OTHER BONES: No acute abnormality. CERVICAL SOFT TISSUES AND LUNG APICES: Normal soft tissues. Visualized lung apices are clear. IMPRESSION: No acute abnormality of the head or cervical spine. Multilevel spondylosis of the cervical spine most pronounced at C5-6, as described above. WSN: [id number] Ordering Physician: Amos Garces Dictated By: Lukas Cooney MD Dictated Date/Time: 01/27/22 9:16 am Reviewed By: Lukas Cooney MD Signed By: Lukas Cooney MD Signed Date/Time: 01/27/22 9:16 am Transcribed By: SHANTEL Transcribed Date/Time: 01/27/22 9:08 am Patient Care team information Care Team Personnel Name: Tete Pulliam RN Position: S RN Member Role: Primary Care Nurse Name: Khushboo Barron RN Position: S RN Member Role: Primary Care Nurse Name: Alana Mccollum RN Position: S RN Member Role: Primary Care Nurse Name: Deisi Macias RN Position: [facility] RN Member Role: Primary Care Nurse Name: Not on Staff, PCP Position: [facility] Physician (General Medicine) Member Role: PCP Name: Leann Otoole RN Position: [facility] RN Member Role: Primary Care Nurse Name: Manuel Anderson RN Position: [facility] RN Member Role: Primary Care Nurse Name: Greg Greene MD Position: [facility] Psychiatry MD Member Role: [employer] Consulting Physician Address: Address: [address] [place] [address] Name: Amos Cohen Position: [facility] Associate Professional Member Role: ED Physician Manager Eligibility Address: Address: [address] [place] [address] Name: Dede Sotelo MD Position: [facility] ED Medicine MD Member Role: Admitting Physician Address: Address: [address] [place] [address] Name: Crystal Stauffer RN Position: [facility] ED RN W/OE and Tasks Member Role: Patient Care Provider Name: Maty Dumont RN Position: [facility] ED RN W/OE and Tasks Member Role: Patient Care Provider Name: Alison Garg Position: [facility] ED TA [facility] Member Role: [facility] Caretaker Care Team Related Persons Name: STEW REYNOLDS Address: [place] [address] Name: MARINO CASTREJON Address: home [address] [place] [id number]
--- OUTSIDE RECORDS SUMMARY | 2022-06-05 02:23 | XMS_ITS | Continuity of Care Document ---
Author Name Unknown Organization [facility] [address] Address [address] [place] [address]- Care Team Providers Care Seconds Grader Name Role Phone Not on Staff, PCP Primary Care Physician Unavail able Encounter [facility] Date(s): 06/01/22 - 06/02/[address] [address]- Encounter Diagnosis Methadone use(Final) - 06/01/22 Opiate overdose(Final) - 06/01/22 Discharge Disposition: A-D/C Home Attending Physician: Janie Villareal MD Admitting Physician: Janie Villareal MD Referring Physician: Not on Staff, Referring [...] 2 Refills, Soft Stop, 11/11/21 16:52:00 EDT, [facility]/pharmacy #[id number], Partial fill upon patient request if the [...] 3 Oxygen Saturation [94-100 %] 98 % (06/01/22 11:30 PM) 96 % (06/01/22 7:30 PM) 99 % (06/01/22 4:53 PM) Pulse Rate [55-90 bpm] 69 bpm (06/01/22 11:30 PM) 77 bpm (06/01/22 7:30 PM) 58 bpm (06/01/22 4:53 PM) Blood Pressure [90-138/55-84 mm Hg] 110/70mm Hg (06/01/22 11:30 PM) 101/70mm Hg (06/01/22 7:30 PM) 122/57mm Hg (06/01/22 4:53 PM) Respiratory Rate [16-30 br/min] 15 br/min *L* (06/01/22 11:30 PM) 20 br/min (06/01/22 7:30 PM) 22 br/min (06/01/22 4:53 PM) Temperature [96.8-100.4 DegF] 98.3 DegF (06/01/22 7:30 PM) 98 DegF (06/01/22 4:53 PM) Mode of Delivery (Oxygen) Room air (06/01/22 11:30 PM) Room air (06/01/22 7:30 PM) Room air (06/01/22 4:53 PM) Blood pressure sites Arm, left (06/01/22 11:30 PM) Arm, left (06/01/22 7:30 PM) Arm, right (06/01/22 4:53 PM) Temperature Route Oral (06/01/22 7:30 PM) Oral (06/01/22 4:53 PM) Social History Social History Type Response Smoking Status 10 or more cigarette s (1/2 pack or more)/day in last 30 days entered on: 01/05/22 Sex EKG study * Event Display: EKG Authored Date: * Event Display: ECG 12-Lead Authored Date: Please click on pdf link to open report * Event Display: ECG 12-Lead Authored Date: Ventricular Rate: 64 BPM Atrial Rate: 64 BPM P-R Interval: 126 ms QRS Duration: 82 ms Q-T Interval: 414 ms QTC Calculation(Bazett): 427 ms P Copeland: 61 degrees R Copeland: 78 degrees T Copeland: 19 degrees Normal sinus rhythm Normal ECG When compared with ECG of 09-APR-2022 13:24, No significant change was found Confirmed by FRANTZ SCHWARTZ MD ([id number]) on 06/02/2022 5:54:32 PM Gilbert: FRANTZ SCHWARTZ MD Note * Winsome Horn MD: PERFORM, SIGN, VERIFY Event Display: Patient Education Handout Authored Date: [id number] * Winsome Horn MD: PERFORM Event Display: Patient Education Leaflets Authored Date: [id number] Opiate Overdose ?? [id number] Opiate Overdose You've been treated for an [...] If this happens, you may take an [id number] laxative or suppository. ?? Follow-up care Follow [...] program. ?? Last Reviewed Date: 2021 ?? [id number] [employer]. All rights reserved. This information is not intended as a substitute for professional medical care. Always follow your healthcare professional's instructions. ?? Patient Care team information Care Team Personnel Name: Khushboo Barron RN Position: [facility] RN Member Role: Primary Care Nurse Name: Alana Mccollum RN Position: [facility] RN Member Role: Primary Care Nurse Name: Deisi Macias RN Position: [facility] RN Member Role: Primary Care Nurse Name: Not on Staff, PCP Position: [facility] Physician (General Medicine) Member Role: PCP Name: Leann Otoole RN Position: [facility] RN Member Role: Primary Care Nurse Name: Greg Greene MD Position: [facility] Psychiatry MD Member Role: Lifetime Consulting Physician Address: Address: [address] [place] [address] Name: Valeria Bronson RN Position: [facility] ED RN W/OE and Tasks Member Role: Patient Care Provider Name: Winsome Horn MD Position: [facility] Resident Member Role: ED Resident Address: Address: [address] [place] [address] Name: Janie Villareal MD Position: [facility] ED Medicine MD Member Role: Admitting Physician Address: Address: [address] [place] [address] Name: Hany Yanes Position: S ED TA [facility] Member Role: Patient Care Provider Care Team Related Persons Name: STEW REYNOLDS Address: [place] [address] Name: MARINO CASTREJON Address: home [address] [place] [id number]
[2022-06-05 03:10] VITALS: TEMP 35.1
--- NOTE | 2022-06-05 03:11 | PC.NURSE ---
Rectal temp of 95.2, Pt placed on the natalee hugger, provider Dr. Moya notified. Pt lethargic, awakens to tactile stimuli, A&O to self and place, states he was trying to get home to [place] and went to sleep on the curb . Denies any CP, palpitations or SOB.
--- NOTE | 2022-06-05 03:16 | MHC.EDTECH ---
PT TEMP IS 95.2 RECTAL THIS TECH REPORTED TEMP TO DR. HARRIS PER DR. HARRIS BEAR WARER WAS PLACE DUE TO PT TEMP
--- NOTE | 2022-06-05 03:50 | ED_ITS ---
HPI - General Adult General Chief complaint: General Medical Stated complaint: hypothermia Time Seen by Provider: 06/05/22 01:34 Source: EMS Mode of arrival: EMS History of Present Illness HPI narrative: 52-year-old male who was found sleeping outside by the please department, no Narcan given. Patient was recently seen here for overdose patient appears to be very drowsy but is arousable. Related Data Previous Rx's Medication Instructions Recorded amoxicillin 875 mg-potassium 1 tab PO BID 10 days #20 tabs 04/30/21 clavulanate 125 mg tablet Allergies Allergy/AdvReac Type Severity Reaction Status Date / Time No Known Allergies Allergy Verified 02/26/21 15:14 Review of Systems Review of Systems: Pertinent positives and negatives as stated in HPI [facility] Past Medical History Source: nursing notes reviewed Medical History Acute alcohol intoxication Polysubstance abuse Social History Social History Alcohol intake: current Alcohol intake frequency: 3 or more drinks per day Alcohol type: beer Patient Tobacco Use Status: Never used Tobacco Smoked in Last 30 Days: No Use of substances other than those prescribed or required for medical reasons: Yes Substance Use Type: Crack/Cocaine and Heroin Advance Directives: No Advance Directives Information Provided: Yes Physical Exam ED Vital Signs: Vital Signs - 24 hr 06/05/22 01:29 06/05/22 03:10 06/05/22 04:09 Temperature 97.8 F 95.2 F L 96.4 F L Pulse Rate 58 73 Respiratory Rate 16 20 Blood Pressure 114/69 114/70 Pulse Oximetry 97 100 Oxygen Delivery Method Room Air Room Air BMI result Body Mass Index 22.5 VITAL SIGNS: Reviewed. GENERAL: Unkempt, well nourished, in no acute distress. HEAD: Normocephalic/atraumatic EYES: PERRLA, EOMI EARS: Ext canals without abnormality NOSE: Nares patent bilateral OROPHARYNX: no oral lesions noted, posterior pharynx clear NECK: Supple, no adenopathy LUNGS: Normal breath sounds. No adventitious sounds or accessory muscle use. SpO2<97> CARDIOVASCULAR: Regular rate and rhythm without noted murmurs ABDOMEN: Soft, non-tender, non-distended with bowel sounds. MUSCULOSKELETAL: No tenderness, deformities, or effusions noted on gross inspection. EXTREMITIES: No cyanosis, clubbing or edema. SKIN: Inspection of the skin reveals no rashes NEUROLOGIC: Drowsy but arousable and oriented x3. Strength and sensation to light touch were grossly intact x 4. Medical Decision Making Medical Decision Making MDM Narrative: 52-year-old male with likely additional substance use although not know Narcan is being required at this time. Will continue to observe while patient becomes more sober. On re-evaluation patient is feeling much better, chest x-ray is negative for acute findings, patient's temperature has significantly improved and he is otherwise discharged in stable condition. Differential Diagnosis Please see the discussion above Lab Data Please see the discussion above Labs: Lab Results 06/05/22 Range/Units 04:25 COVID-19 (YUNIOR) Negative (Negative) COVID-19 Clin Com See Note Radiology Impression Radiologist Impression: My interpretation is in agreement with radiology's impression of the imaging studies. External Record Review External record reviewed: Prior outpatient labs Discharge Plan Discharge Clinical Impression: Polysubstance abuse, Hypothermia Patient Disposition: Home, Self-Care Instructions: Acute Hypothermia (ED), Polysubstance Abuse (ED) Additional Instructions: 1. Return to the ER for any worsening of your symptoms. Prescriptions: No Action amoxicillin-pot clavulanate 875-125 mg tablet 1 tab PO BID 10 Days Qty: 20 0RF Referrals: Angel Luis García MD [Primary Care Provider] -
[2022-06-05 04:09] VITALS: BP 114/70; PULSE 73; RESP 20; TEMP 35.8; O2SAT 100
[2022-06-05 04:48] LABS: COVID-19 Test Negative (Negative); IDNOW Serial# BCCEAD1C
[2022-06-05 05:46] VITALS: BP 111/72; PULSE 82; RESP 14; TEMP 35.8; O2SAT 99
--- NOTE | 2022-06-05 06:00 | PC.NURSE ---
Pt A&Ox3, denies any pain, tolerating PO fluids and sandwich given, states I have to go by 0600, I have a friend waiting for me . Pt able to sit at edge of bed to get dress, ambulated independently to WR with D/C instructions.
== END 2022-06-05 06:06 | disposition home or self-care (01) ==
PROVIDERS: Emergency Provider Student in an Organized Health Care Education/Training Program; PCP Internal Medicine
DX: F19.10 Other psychoactive substance abuse, uncomplicated (principal); T68.XXXA Hypothermia, initial encounter; X31.XXXA Exposure to excessive natural cold, initial encounter
CPT/HCPCS: 71045; 87635; 99283; 99284

== ENCOUNTER 2023-07-31 16:15 | Emergency (ER) | payer OTHER, SELFPAY ==
--- NOTE | ~2023-07-31 | CT_ITS ---
EXAMINATION: CT HEAD WITHOUT CONTRAST CLINICAL INFORMATION: Found unresponsive. COMPARISON: CT brain dated 10/14/2021. TECHNIQUE: Contiguous axial imaging was performed from the skull base to vertex without intravenous administration of contrast. Multiplanar reformatted images are submitted. This CT examination was performed using dose optimization techniques as appropriate, variously including the following: *Automated exposure control *Adjustment of mA and/or kV according to patient size (this includes techniques or standardized protocols for targeted exams where dose is matched to indication/reason for exam; i.e. extremities or head) *Use of iterative reconstruction technique DLP: 1332 mGy-cm (head and cervical spine) FINDINGS: There is no acute intracranial hemorrhage or evidence of territorial infarction. No abnormal mass effect or midline shift is seen. Rubi to white matter differentiation is well preserved. There is no abnormal attenuation within the brain parenchyma. The ventricles are normal in size. No extra-axial fluid collections are identified. The calvarium and scalp soft tissues are normal. The middle ear cavity and mastoid air cells are clear. The visualized paranasal sinuses are clear. CT/CT cervical spine wo IV con IMPRESSION: No acute intracranial pathology. EXAMINATION: CT CERVICAL SPINE WITHOUT CONTRAST CLINICAL INFORMATION: Found unresponsive. COMPARISON: None available. TECHNIQUE: Contiguous axial imaging was performed through the cervical spine without intravenous administration of contrast. Multiplanar reformatted images are submitted. This CT examination was performed using dose optimization techniques as appropriate, variously including the following: *Automated exposure control *Adjustment of mA and/or kV according to patient size (this includes techniques or standardized protocols for targeted exams where dose is matched to indication/reason for exam; i.e. extremities or head) *Use of iterative reconstruction technique DLP: As above FINDINGS: There is a mild T2 upper endplate compression fracture, which is new from the CT chest dated 10/14/2021. At C3-C4, there is mild posterior disc space narrowing. At C5-C6, there is mild posterior disc space narrowing, with vacuum disc phenomenon. The remaining disc spaces are well-maintained. No acute fracture or spondylolisthesis is seen. There is multi-level anterior cervical endplate arthropathy. The posterior elements are intact. There is no prevertebral soft tissue swelling. The dens is intact. The bilateral lung apices are clear. IMPRESSION: 1. There is interim appearance of a mild T2 anterior upper endplate compression fracture. 2. There is mild degenerative disc disease at C3-C4 and C5-C6. 3. There is multi-level anterior cervical endplate arthropathy. Fleischner guidelines were followed.
--- NOTE | 2023-07-31 16:27 | ECG_ITS ---
Test Reason : AMS Blood Pressure : / mmHG Vent. Rate : 050 BPM Atrial Rate : 050 BPM P-R Int : 122 ms QRS Dur : 084 ms QT Int : 440 ms P-R-T Axes : -08 056 038 degrees QTc Int : 401 ms Unusual P axis, possible ectopic atrial bradycardia Otherwise normal ECG When compared with ECG of Unusual P axis, possible ectopic atrial bradycardia has replaced Normal sinus rhythm Premature ventricular complexes are no longer Present Referred By: Ysabel Burris Electronically Signed By:DONNA HUMPHREY MD
--- NOTE | 2023-07-31 16:29 | ED.OVERDOSE ---
HPI - Overdose General Chief Complaint: Overdose Stated Complaint: ETOH, poss OD, found unconscious, currently cons Time Seen by Provider: 07/31/23 16:23 Source: EMS Mode of arrival: EMS Limitations: altered mental status History of Present Illness ED Provider: Dr. Ysabel Burris HPI Narrative: Patient comes to the emergency room by ambulance. A bystander hurt found the patient unresponsive by the sidewalk on the [employer]. Patient was given 4 mg of Narcan, patient's low restarted waking up. Patient was able to tell him their name. Patient is too intoxicated/under the influence of drugs, unable to give significant history. Patient keeps yawning, coughing/sneezing which started after the intranasal dose of Narcan. Related Data Previous Rx's ?Medication ?Instructions ?Recorded amoxicillin 875 mg-potassium 1 tab PO BID 10 days #20 tabs 04/30/21 clavulanate 125 mg tablet Allergies Allergy/AdvReac Type Severity Reaction Status Date / Time No Known Allergies Allergy Verified 07/31/23 16:34 Review of Systems Review of Systems: Yes Unobtainable due to mental status PMFSH Past Medical History Medical History Polysubstance abuse Acute alcohol intoxication Social History Social History Alcohol intake: current Alcohol intake frequency: 3 or more drinks per day Alcohol type: beer Patient Tobacco Use Status: Never used Tobacco Smoked in Last 30 Days: Yes Use of substances other than those prescribed or required for medical reasons: Refusing to respond Substance Use Type: Crack/Cocaine and Heroin Advance Directives: No Advance Directives Information Provided: No Physical Exam Vital Signs: Vital Signs: Last Vital Signs Temp 97.6 F 07/31/23 21:01 Pulse 65 07/31/23 21:01 Resp 16 07/31/23 21:01 BP 121/77 07/31/23 21:01 Pulse Ox 98 07/31/23 21:01 O2 Del Method Room Air 07/31/23 21:01 BMI result Body Mass Index 22.8 Const: Other: Appearance: Somnolent, easily arousable, falls back asleep, seems intoxicated, under the influence of drugs Eyes: Pupils equal, round and reactive to light. ENT: Pharynx normal. Neck: Normal inspection. Neck supple. No lymph nodes noted. No crepitus CVS: Normal heart rate and rhythm. Pulses normal. Normal S1 and S2 Respiratory: No respiratory distress. Breath sounds normal. No Wheezing. No rales Abdomen: Soft and nontender. No rigidity. No distention. Skin: Skin warm and dry. Normal skin color. Normal skin turgor. Extremities: No lower extremity edema. No Lacerations. No Rash Neuro: Unable to participating cranial nerve assessment Psych: calm Course Course Course Narrative: -all of patient's labs pending -head CT pending -I reviewed patient's past medical records, patient has been seen here multiple times for both overdose and ETOH Medical Decision Making Medical Decision Making [facility] Narrative: -my interpretation of labs, hematology at baseline, chemistry within normal limits, troponin negative, magnesium normal ETOH negative -my interpretation of CT scan of the head: No intracranial bleed, no cervical spine fracture -patient is somnolent, easily arousable, patient's oxygen saturation stayed above 98% on room air. 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 Patient awake, alert and oriented x3. -patient ready for discharge Differential Diagnosis Differential Diagnoses: The differential diagnosis associated with the presentation includes (Polysubstance abuse, accidental overdose, alcohol intoxication) Admission/Observation Consideration of admission/observation: Escalation of care including admission/observation considered (Patient is under physician observation) Lab Data [facility] Lab Attestation statement: I reviewed the patient's lab results. 07/31/23 17:12 07/31/23 17:12 Labs: Lab Results 07/31/23 Range/Units 17:12 WBC 5.5 (4.8-10.8) X10*3/uL RBC 3.87 L (4.60-5.80) X10*6/uL Hgb 11.6 L (14.0-18.0) g/dl Hct 34.0 L (42.0-52.0) % MCV 87.9 (80.0-98.0) fL MCH 30.0 (27.0-33.0) pg MCHC 34.1 (31.0-36.0) g/dl RDW 13.2 (11.0-16.0) % Plt Count 164 (160-400) X10*3/uL MPV 8.6 L (9.4-12.4) fL Immature Gran % (Auto) 0.2 (0.0-0.4) % Neut % (Auto) 59.0 (45-73) % Lymph % (Auto) 30.0 (20-40) % [place] % (Auto) 8.1 (2-11) % Eos % (Auto) 2.2 (0-4) % Baso % (Auto) 0.5 (0-2) % Lymph # (Auto) 1.7 (1.2-4.9) X10*3/uL [place] # (Auto) 0.5 (0.1-1.2) X10*3/uL Eos # (Auto) 0.1 (0.0-0.4) X10*3/uL Baso # (Auto) 0.0 (0.0-0.2) X10*3/uL Abs Immat Gran (auto) 0.01 (0.00-0.03) X10*3/uL Absolute Neuts (auto) 3.3 (2.0-8.3) x10*3/uL Absolute Nucleated RBC 0.000 (0.0-0.012) X10*3/uL Nucleated RBC % (auto) 0.0 (0.0-0.2) /100WBC PT 12.8 (11.1-13.3) SEC INR 1.1 (0.9-1.1) Sodium 143 (135-145) mmol/L Potassium 3.7 (3.3-5.1) mmol/L Chloride 107 (96-108) mmol/L Carbon Dioxide 23 (22-29) mmol/L Anion Gap 17 (12-20) BUN 11 (9-16) mg/dL Creatinine 0.90 (0.5-1.4) mg/dL Estim Creat Clear Calc 89.1 Estimated GFR > 60 Random Glucose 138 H (60-115) mg/dL Calcium 9.4 D (8.4-10.2) mg/dL Magnesium 2.0 (1.6-2.6) mg/dL Total Bilirubin 0.5 (0.0-1.0) mg/dL Direct Bilirubin 0.2 (0.0-0.5) mg/dL AST 18 (5-37) U/L ALT 14 (0-40) U/L Alkaline Phosphatase 94 (39-117) U/L Troponin I High Sens < 2.7 (<3.5-35.0) ng/L Total Protein 6.7 (6.5-8.0) g/dL Albumin 4.0 (3.5-5.0) g/dL Lipase 32 (8-78) U/L Ethyl Alcohol < 10 mg/dL Independent Interpretation I performed an independent interpretation of an: CT Scan Radiology Impression Discussion of test interpretation with radiology: I have reviewed the radiologist's reading. Radiologist Impression: FINDINGS: There is no acute intracranial hemorrhage or evidence of territorial infarction. No abnormal mass effect or midline shift is seen. Rubi to white matter differentiation is well preserved. There is no abnormal attenuation within the brain parenchyma. The ventricles are normal in size. No extra-axial fluid collections are identified. The calvarium and scalp soft tissues are normal. The middle ear cavity and mastoid air cells are clear. The visualized paranasal sinuses are clear. CT/CT head/brain wo IV con IMPRESSION: No acute intracranial pathology. EXAMINATION: CT CERVICAL SPINE WITHOUT CONTRAST CLINICAL INFORMATION: Found unresponsive. COMPARISON: None available. TECHNIQUE: Contiguous axial imaging was performed through the cervical spine without intravenous administration of contrast. Multiplanar reformatted images are submitted. This CT examination was performed using dose optimization techniques as appropriate, variously including the following: *Automated exposure control *Adjustment of mA and/or kV according to patient size (this includes techniques or standardized protocols for targeted exams where dose is matched to indication/reason for exam; i.e. extremities or head) *Use of iterative reconstruction technique DLP: As above FINDINGS: There is a mild T2 upper endplate compression fracture, which is new from the CT chest dated 10/14/2021. At C3-C4, there is mild posterior disc space narrowing. At C5-C6, there is mild posterior disc space narrowing, with vacuum disc phenomenon. The remaining disc spaces are well-maintained. No acute fracture or spondylolisthesis is seen. There is multi-level anterior cervical endplate arthropathy. The posterior elements are intact. There is no prevertebral soft tissue swelling. The dens is intact. The bilateral lung apices are clear. IMPRESSION: 1. There is interim appearance of a mild T2 anterior upper endplate compression fracture. 2. There is mild degenerative disc disease at C3-C4 and C5-C6. 3. There is multi-level anterior cervical endplate arthropathy. Fleischner guidelines were followed. Critical Care Time Critical Care Time Critical Care Time: Yes Total Critical Care Time: 35 Attestation: I have personally provided critical care time. Time includes review of lab data, radiology results, discussion with consultants, and monitoring for potential decompensation. Intervention performed as documented. Discharge Plan Discharge Clinical Impression: Drug overdose Patient Disposition: Home, Self-Care Instructions: Adult Overdose (ED) Additional Instructions: Please follow-up with your primary care physician tomorrow. If you have any worsening or new symptoms, please return to the emergency room or call 911 Prescriptions: No Action amoxicillin-pot clavulanate 875-125 mg tablet 1 tab PO BID 10 Days Qty: 20 0RF Print Language: Liberian
[2023-07-31 16:30] VITALS: BP 118/64; PULSE 50; RESP 18; TEMP 36.3; O2SAT 99; BMI 22.8
[2023-07-31 17:16] LABS: MANUAL DIFF FLAG NO
[2023-07-31 17:19] LABS: Basophils Percent Auto 0.5 % (0-2); Eosinophils Absolute Auto 0.1 X10*3/uL (0.0-0.4); Eosinophils Percent Auto 2.2 % (0-4); Hemoglobin 11.6 g/dl (14.0-18.0); Imm Gran Abs Auto 0.01 X10*3/uL (0.00-0.03); Imm Gran Pct Auto 0.2 % (0.0-0.4); Lymphocytes Absolute Auto 1.7 X10*3/uL (1.2-4.9); Mean Corpuscular HGB Conc 34.1 g/dl (31.0-36.0); Mean Corpuscular Volume 87.9 fL (80.0-98.0); Mean Platelet Volume 8.6 fL (9.4-12.4); Monocytes Absolute Auto 0.5 X10*3/uL (0.1-1.2); Monocytes Percent Auto 8.1 % (2-11); Neutrophils Absolute Auto 3.3 x10*3/uL (2.0-8.3); Platelet Count 164 X10*3/uL (160-400); Red Blood Count 3.87 X10*6/uL (4.60-5.80); Red Cell Distribution Width 13.2 % (11.0-16.0); White Blood Count 5.5 X10*3/uL (4.8-10.8)
[2023-07-31 17:23] LABS: INTERNATIONAL NORM RATIO 1.1 (0.9-1.1); Prothrombin Time 12.8 SEC (11.1-13.3)
[2023-07-31 17:40] LABS: Ethanol < 10 mg/dL
[2023-07-31 17:41] LABS: Alanine Aminotransferase 14 U/L (0-40); Alkaline Phosphatase 94 U/L (39-117); Anion Gap 17 (12-20); Aspartate Amino Transferase 18 U/L (5-37); Bilirubin Direct 0.2 mg/dL (0.0-0.5); Bilirubin Total 0.5 mg/dL (0.0-1.0); Blood Urea Nitrogen 11 mg/dL (9-16); Calcium 9.4 mg/dL (8.4-10.2); Carbon Dioxide 23 mmol/L (22-29); Chloride 107 mmol/L (96-108); Creatinine Clr Calc Pharmacy 89.1; Estimated Glomerular Filt Rate > 60; Glucose Random 138 mg/dL (60-115); Lipase 32 U/L (8-78); Potassium 3.7 mmol/L (3.3-5.1); Sodium 143 mmol/L (135-145); Total Protein 6.7 g/dL (6.5-8.0)
[2023-07-31 17:53] LABS: Troponin-I High Sensitivity < 2.7 ng/L (<3.5-35.0)
[2023-07-31 17:54] VITALS: TEMP 37.1; O2SAT 98
[2023-07-31 21:01] VITALS: BP 121/77; PULSE 65; RESP 16; TEMP 36.4; O2SAT 98
--- NOTE | 2023-07-31 23:21 | PC.NURSE ---
Pt asleep at the bedside. No apparent distress noted. Breaths are even regular and unlabored. Monitoring is ongoing.
[2023-08-01] MEDS: Naloxone HCl Nasal TAKE HOME 4 MG SPRAY 8 MG NOSTRILALT (02:36)
[2023-08-01 02:41] VITALS: BP 98/58; PULSE 60; RESP 17; TEMP 36.8
[2023-08-01 02:42] VITALS: BP 98/58; PULSE 60; RESP 17; TEMP 36.8; O2SAT 98
--- OUTSIDE RECORDS SUMMARY | 2023-08-05 08:59 | XMS_ITS | Continuity of Care Document ---
Author Organization [facility] Address [address] [place] [address]- Care Team Providers Care Occupational Health Coordinator Name Role Phone Angel Luis Enriquez MD Primary Care Physician [phone] Encounter [facility] Date(s): 08/30/22 - 09/29/22 [facility] [address], [place] [address] Allergies, Adverse Reactions, Alerts No Known [...] 2 Refills, Soft Stop, 11/11/21 16:52:00 EDT, [facility]/pharmacy #[id number], Partial fill upon patient request if the [...] Team Personnel Name: Khushboo Barron RN Position: [facility] RN Member Role: Primary Care Nurse Name: Alana Mccollum RN Position: [facility] RN Member Role: Primary Care Nurse Name: Deisi Macias RN Position: [facility] RN Member Role: Primary Care Nurse Name: Angel Luis Enriquez MD Position: [facility] Resident Member Role: PCP Address: Address: [address] [place] [address] Name: Sydnie KHAN, Leann Position: [facility] RN Member Role: Primary Care Nurse Name: Greg Greene MD Position: [facility] Physician - Behavioral Health Member Role: Lifetime Consulting Physician Address: Address: [address] [place] [address]- Care Team Related Persons Name: STEW REYNOLDS Address: [place] [address] Name: MARINO CASTREJON Address: home [address] [place] [address]
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
--- OUTSIDE RECORDS SUMMARY | 2023-08-05 08:59 | XMS_ITS | Continuity of Care Document ---
Author Organization [facility] Address [address] [place] [address]- Care Team Providers Care Computer Systems Technology Instructor Name Role Phone Angel Luis Enriquez MD Primary Care Physician Encounter [facility] Date(s): 03/01/23 - 04/15/23 [facility] [address], [place] [address] Attending Physician: Dillan Dean MD Admitting Physician: Dillan Dean MD Allergies, Adverse Reactions, Alerts No Known Allergies Immunizations Given and Recorded Vaccine Date Status Refusal Reason tetanus/diphtheria/pertussis, acel(Tdap) 06/22/22 Recorded tetanus/diphtheria/pertussis, acel(Tdap) 01/28/22 Recorded tetanus/diphtheria/pertussis, acel(Tdap) 01/27/22 Given tetanus/diphtheria/pertussis, acel(Tdap) 04/29/21 Recorded tetanus/diphtheria/pertussis, acel(Tdap) 10/16/18 Given tetanus/diphtheria/pertussis, acel(Tdap) 08/20/15 Recorded tetanus/diphtheria/pertussis, acel(Tdap) 02/18/15 Recorded SARS-CoV-2 mRNA ([id number]) vax 01/02/22 Recorded SARS-CoV-2 (COVID-19) Ad26 vaccine 12/22/20 Record ed zoster vaccine, inactivated 03/25/20 Recorded pneumococcal 23-valent vaccine 03/25/20 Recorded pneumococcal 23-valent vaccine 1 08/31/11 Given influenza virus vaccine, inactivated 03/25/20 Wil rded influenza virus vaccine, inactivated 11/21/18 Wil rded influenza virus vaccine, inactivated 12/07/17 Wil rded influenza virus vaccine, inactivated 02/10/17 Wil rded pneumococcal 13-valent vaccine 02/10/17 Recorded tetanus-diphtheria toxoids (Td) 2 01/07/09 Given 1Admin [...] 2 Refills, Soft Stop, 11/11/21 16:52:00 EDT, [facility]/pharmacy #[id number], Partial fill upon patient request if the [...] last 30 days entered on: 01/05/22 Sex Male Patient Care team information Care Team Personnel Name: Khushboo Barron RN Position: [facility] SN RN Member Role: Primary Care Nurse Name: Alana Mccollum RN Position: [facility] RN Member Role: Primary Care Nurse Name: Deisi Macias RN Position: [facility] RN Member Role: Primary Care Nurse Name: Angel Luis Enriquez MD Position: [facility] Resident Member Role: PCP Address: Address: [address] [place] [id number] Name: Leann Otoole RN Position: [facility] RN Member Role: Primary Care Nurse Name: Manuel Anderson RN Position: [facility] RN Member Role: Primary Care Nurse Name: Greg Greene MD Position: [facility] Physician - Behavioral Health Member Role: Lifetime Consulting Physician Address: Address: [address] [place] [id number]- Care Team Related Persons Name: STEW REYNOLDS Address: [place] [address] Name: MARINO CASTREJON Address: home [address] [place] [address]
--- OUTSIDE RECORDS SUMMARY | 2023-08-05 08:59 | XMS_ITS | Continuity of Care Document ---
Author Organization [facility] Address [address] [place] [address]- Care Team Providers Care Management Engineer Name Role Phone Angel Luis Enriquez MD Primary Care Physician [phone] [facility] Date[facility]): [facility] - 10/08/22 [facility] [address] [place] [address]- Attending Physician: Jeffy Nugent Admitting Physician: AdmtrJeffy Referring Physician: AdmtrJeffy Allergies, Adverse Reactions, Alerts [...] Refills, Soft Stop, 11/11/21 16:52:00 EDT, [facility]/pharmacy #[id number], Partial fill upon patient request if the [...] Care team information Care Team Personnel Name: Beatrice KHAN, Khushboo Position: [facility] RN Member Role: Primary Care Nurse Name: Alana Mccollum RN Position: [facility] RN Member Role: Primary Care Nurse Name: Deisi Macias RN Position: [facility] RN Member Role: Primary Care Nurse Name: Angel Luis Enriquez MD Position: [facility] Resident Member Role: PCP Address: Address: [address] [place] [address]- Name: Leann Otoole RN Position: [facility] RN Member Role: Primary Care Nurse Name: Greg Greene MD Position: [facility] Physician - Behavioral Health Member Role: Lifetime Consulting Physician Address: Address: [address] [place] [address]- Care Team Related Persons Name: STEW REYNOLDS Address: [place] [address] Name: MARINO CASTREJON Address: home [address] [place] [address]
--- OUTSIDE RECORDS SUMMARY | 2023-08-05 08:59 | XMS_ITS | Continuity of Care Document ---
Author Organization [facility] Address [address] [place] [address]- Care Team Providers Care Enterprise Sales Person Name Role Phone Angel Luis Enriquez MD Primary Care Physician [phone] [place] [facility] - 10/08/22 [facility] [address] [place], [place] [address] Attending Physician: Dillan Dean MD Admitting [...] 2 Refills, Soft Stop, 11/11/21 16:52:00 EDT, [facility]/pharmacy #[id number], Partial fill upon patient request if the [...] Team Personnel Name: Beatrice KHAN, Khushboo Position: [facility] RN Member Role: Primary Care Nurse Name: Alana Mccollum RN Position: [facility] RN Member Role: Primary Care Nurse Name: Deisi Macias RN Position: [facility] RN Member Role: Primary Care Nurse Name: Angel Luis Enriquez MD Position: [facility] Resident Member Role: PCP Address: Address: [address] [place] [address]- Name: Leann Otoole RN Position: [facility] RN Member Role: Primary Care Nurse Name: Greg Greene MD Position: [facility] Physician - Behavioral Health Member Role: Lifetime Consulting Physician Address: Address: [address] [place] [address]- Care Team Related Persons Name: STEW REYNOLDS Address: [place] [address] Name: MARINO CASTREJON Address: home [address] [place] [address]
--- OUTSIDE RECORDS SUMMARY | 2023-08-05 08:59 | XMS_ITS | Continuity of Care Document ---
Author Organization [facility] Address [address] [place] [address]- Care Team Providers Care Laboratory Supervisor Name Role Phone Angel Luis Enriquez MD Primary Care Physician [phone] [facility] Date[facility]s): 03/16/23 - 04/15/23 [facility] [address] [place] [address]- Attending Physician: Jeffy Nugent Admitting Physician: AdmtrJeffy Referring Physician: AdmtrJeffy Allergies, Adverse Reactions, Alerts No Known Allergies Immunizations Given and Recorded Vaccine Date Status Refusal Reason tetanus/diphtheria/pertussis, acel(Tdap) 06/22/22 Recorded tetanus/diphtheria/pertussis, acel(Tdap) 01/28/22 Recorded tetanus/diphtheria/pertussis, acel(Tdap) 01/27/22 Given tetanus/diphtheria/pertussis, acel(Tdap) 04/29/21 Recorded tetanus/diphtheria/pertussis, acel(Tdap) 10/16/18 Given tetanus/diphtheria/pertussis, acel(Tdap) 08/20/15 Recorded tetanus/diphtheria/pertussis, acel(Tdap) 02/18/15 Recorded SARS-CoV-2 mRNA ([id number]) vax 01/02/22 Recorded SARS-CoV-2 (COVID-19) Ad26 vaccine [...] 2 Refills, Soft Stop, 11/11/21 16:52:00 EDT, [facility]/pharmacy #[id number], Partial fill upon patient request if [...] Team Personnel Name: Khushboo Barron RN Position: [facility] SN RN Member Role: Primary Care Nurse Name: Alana Mccollum RN Position: [facility] RN Member Role: Primary Care Nurse Name: Deisi Macias RN Position: [facility] RN Member Role: Primary Care Nurse Name: Angel Luis Enriquez MD Position: [facility] Resident Member Role: PCP Address: Address: [address] [place] [address] Name: Leann Otoole RN Position: [facility] RN Member Role: Primary Care Nurse Name: Manuel Anderson RN Position: [facility] RN Member Role: Primary Care Nurse Name: Greg Greene MD Position: [facility] Physician - Behavioral Health Member Role: Lifetime Consulting Physician Address: Address: [address] [place] [address] [place] [address]- Care Team Related Persons Name: STEW REYNOLDS Address: [place] [address] Name: MARINO CASTREJON Address: home [address] [place] [address]
--- OUTSIDE RECORDS SUMMARY | 2023-08-05 08:59 | XMS_ITS | Continuity of Care Document ---
Author Organization [facility] Address [address] [place] [address]- Care Team Providers Care Frame Maker Name Role Phone Ng Angel Luis MACIAS Primary Care Physician [phone] [facility] Date(s): 02/03/23 - 03/18/23 [facility] [address] [place], [place] [address] Attending Physician: Not on Staff, Attending MD Allergies, Adverse Reactions, Alerts No Known Allergies Immunizations Given and Recorded Vaccine Date Status Refusal Reason tetanus/diphtheria/pertussis, acel(Tdap) 06/22/22 Recorded tetanus/diphtheria/pertussis, acel(Tdap) 01/28/22 Recorded tetanus/diphtheria/pertussis, acel(Tdap) 01/27/22 Given tetanus/diphtheria/pertussis, acel(Tdap) 04/29/21 Recorded tetanus/diphtheria/pertussis, acel(Tdap) 10/16/18 Given tetanus/diphtheria/pertussis, acel(Tdap) 08/20/15 Recorded tetanus/diphtheria/pertussis, acel(Tdap) 02/18/15 Recorded SARS-CoV-2 mRNA ([id number]) vax 01/02/22 Recorded SARS-CoV-2 (COVID-19) Ad26 vaccine [...] 2 Refills, Soft Stop, 11/11/21 16:52:00 EDT, [facility]/pharmacy #[id number], Partial fill upon patient request [...] Team Personnel Name: Khushboo Barron RN Position: [facility] RN Member Role: Primary Care Nurse Name: Alana Mccollum RN Position: [facility] RN Member Role: Primary Care Nurse Name: Deisi Macias RN Position: [facility] RN Member Role: Primary Care Nurse Name: Angel Luis Enriquez MD Position: [facility] Resident Member Role: PCP Address: Address: [address] [place] [address]- Name: Leann Otoole RN Position: [facility] RN Member Role: Primary Care Nurse Name: Manuel Anderson RN Position: [facility] RN Member Role: Primary Care Nurse Name: Greg Greene MD Position: [facility] Physician - Behavioral Health Member Role: Lifetime Consulting Physician Address: Address: [address] [place] [address] Care Team Related Persons Name: STEW REYNOLDS Address: [place] [address] Name: MARINO CASTREJON Address: home [address] [place] [address]
--- OUTSIDE RECORDS SUMMARY | 2023-08-05 08:59 | XMS_ITS | Continuity of Care Document ---
Author Organization [facility] ter Address [address] [place] [address]- Care Team Providers Care Property Officer Name Role Phone Angel Luis Enriquez MD Primary Care Physician Encounter [facility] [place] Date(s): 02/16/23 - 02/17/[address] [address]- Encounter Diagnosis Opiate use(Final) - 02/17/23 Aggression(Final) - 02/17/23 Discharge Disposition: A-D/C Home Attending Physician: Mahi [...] 2 Refills, Soft Stop, 11/11/21 16:52:00 EDT, [facility]/pharmacy #[id number], Partial fill upon patient request if the [...] 2 Oxygen Saturation [94-100 %] 99 % (02/17/23 5:33 AM) 95 % (02/17/23 12:15 AM) Pulse Rate [55-90 bpm] 80 bpm (02/17/23 5:33 AM) 55 bpm (02/17/23 12:15 AM) Blood Pressure [90-138/55-84 mm Hg] 120/ 75mm Hg (02/17/23 5:33 AM) 114/73mm Hg (02/17/23 12:15 AM) Respiratory Rate [16-30 br/min] 12 br/mi n *L* (02/17/23 5:33 AM) 15 br/min *L* (02/17/23 12:15 AM) Temperature [96.8-100.4 DegF] 97.3 DegF (02/17/23 12:15 AM) Mode of Delivery (Oxygen) Room air (02/17/23 5:33 AM) Room air (02/17/23 12:15 AM) Blood pressure sites Arm, left (02/17/23 5:33 AM) Arm, left (02/17/23 12:15 AM) Temperature Route Oral (02/17/23 12:15 AM) Social History Social History Type Response Smoking Status 10 or more cigarette s (1/2 pack or more)/day in last 30 days entered on: 01/05/22 Sex Male EKG study * Event Display: ECG 12-Lead Authored Date: Please click on pdf link to open report * Event Display: ECG 12-Lead Authored Date: Ventricular Rate: 58 BPM Atrial Rate: 58 BPM P-R Interval: 132 ms QRS Duration: 92 ms Q-T Interval: 478 ms QTC Calculation(Bazett): 469 ms P [place]: 46 degrees R [place]: 48 degrees T [place]: 12 degrees Sinus bradycardia Otherwise normal ECG Confirmed by TEDDY POWERS ([id number]) on 02/17/2023 12:02:44 PM [place]: TEDDY POWERS * Event Display: EKG Authored Date: [id number] Patient Care team information Care Team Personnel Name: Khushboo Barron RN Position: [facility] SN RN Member Role: Primary Care Nurse Name: Alana Mccollum RN Position: [facility] RN Member Role: Primary Care Nurse Name: Deisi Macias RN Position: [facility] RN Member Role: Primary Care Nurse Name: Angel Luis Enriquez MD Position: [facility] Resident Member Role: PCP Address: Address: [address] [place] [address] Name: Leann Otoole RN Position: [facility] RN Member Role: Primary Care Nurse Name: Manuel Anderson RN Position: [facility] RN Member Role: Primary Care Nurse Name: Greg Greene MD Position: [facility] Physician - Behavioral Health Member Role: Lifetime Consulting Physician Address: Address: [address] [place] [address]- Name: Anna Davey RN Position: [facility] ED RN W/OE and Tasks Member Role: Patient Care Provider Name: Mahi Agrawal MD Position: [facility] ED Medicine MD Member Role: ED Attending Physician Address: Address: [address] [place] [address]- Name: Tana Arndt DO Position: [facility] Resident Member Role: ED Resident Address: Address: [address] [place] [address]- Name: Roddy Restrepo Position: [facility] ED TA [facility] Care Team Related Persons Name: STEW REYNOLDS Address: [place] [address] Name: MARINO CASTREJON Address: home [address] [place] [address]
--- OUTSIDE RECORDS SUMMARY | 2023-08-05 08:59 | XMS_ITS | Continuity of Care Document ---
Author Organization [facility] Address [address] [place] [address]- Care Team Providers Care Drop Hammer Setter Up Name Role Phone Angel Luis Enriquez MD Primary Care Physician [phone] Encounter [facility] [place] Date(s): 09/04/22 - 10/08/22 [facility] [address] [place], [place] [address] Attending Physician: Dillan Dean MD Admitting [...] Refills, Soft Stop, 11/11/21 16:52:00 EDT, [facility]/pharmacy #[id number], Partial fill upon patient request if the [...] team information Care Team Personnel Name: Beatrice RN, Khushboo Position: [facility] RN Member Role: Primary Care Nurse Name: Alana Mccollum RN Position: [facility] RN Member Role: Primary Care Nurse Name: Deisi Macias RN Position: [facility] RN Member Role: Primary Care Nurse Name: Angel Luis Enriquez MD Position: [facility] Resident Member Role: PCP Address: Address: [address] [place] [address]- Name: Leann Otoole RN Position: [facility] RN Member Role: Primary Care Nurse Name: Greg Greene MD Position: [facility] Physician - Behavioral Health Member Role: Lifetime Consulting Physician Address: Address: [address] [place] [address]- Care Team Related Persons Name: STEW REYNOLDS Address: [place] [address] Name: MARINO CASTREJON Address: home [address] [place] [address]
--- OUTSIDE RECORDS SUMMARY | 2023-08-05 08:59 | XMS_ITS | Continuity of Care Document ---
Author Organization [facility] ter Address [address] [place] [address]- Care Team Providers Care Manager Software Development Name Role Phone Angel Luis Enriquez MD Primary Care Physician [phone] Encounter [facility] [place] Date(s): 09/02/22 - 09/03/[address] [address]- Encounter Diagnosis Opiate overdose(Final) - 09/02/22 Discharge Disposition: A-D/C Home Attending Physician: Aron Galindo MD Admitting Physician: Aron Galindo MD Referring Physician: Not on Staff, Referring [...] 2 Refills, Soft Stop, 11/11/21 16:52:00 EDT, [facility]/pharmacy #[id number], Partial fill upon patient request if the [...] 3 Oxygen Saturation [94-100 %] 96 % (09/03/22 8:16 AM) 100 % (09/03/22 5:53 AM) 97 % (09/03/22 3:43 AM) Pulse Rate [55-90 bpm] 61 bpm (09/03/22 8:16 AM) 61 bpm (09/03/22 5:53 AM) 61 bpm (09/03/22 3:43 AM) Blood Pressure [90-138/55-84 mm Hg] 108/86mm Hg (09/03/22 8:16 AM) 100/61mm Hg (09/03/22 5:53 AM) 109/63mm Hg (09/03/22 3:43 AM) Respiratory Rate [16-30 br/min] 14 br/min *L* (09/03/22 8:16 AM) 11 br/min *L* (09/03/22 5:53 AM) 12 br/min *L* (09/03/22 3:43 AM) Temperature [96.8-100.4 DegF] 98.6 DegF (09/03/22 8:16 AM) 98.4 DegF (09/02/22 10:59 PM) 98.4 DegF (09/02/22 8:32 PM) Liters per Minute 4 L/min (09/03/22 5:53 AM) 4 L/min (09/03/22 3:43 AM) 4 L/min (09/03/22 2:24 AM) Mode of Delivery (Oxygen) Room air (09/03/22 8:16 AM) Nasal cannula (09/03/22 5:53 AM) Nasal cannula (09/03/22 3:43 AM) Blood pressure sites Arm, left (09/03/22 8:16 AM) Arm, left (09/03/22 5:53 AM) Arm, left (09/03/22 3:43 AM) Temperature Route Oral (09/03/22 8:16 AM) Oral (09/02/22 10:59 PM) Oral (09/02/22 8:32 PM) Social History Social History Type Response Smoking Status 10 or more cigarette s (1/2 pack or more)/day in last 30 days entered on: 01/05/22 Sex Patient Care team information Care Team Personnel Name: Khushboo Barron RN Position: [facility] RN Member Role: Primary Care Nurse Name: Alana Mccollum RN Position: [facility] RN Member Role: Primary Care Nurse Name: Deisi Macias RN Position: [facility] RN Member Role: Primary Care Nurse Name: Angel Luis Enriquez MD Position: [facility] Resident Member Role: PCP Address: Address: [address] [place] [address] Name: Sydnie KHAN, Leann Position: [facility] RN Member Role: Primary Care Nurse Name: Greg Greene MD Position: [facility] Physician - Behavioral Health Member Role: Lifetime Consulting Physician Address: Address: [address] [place] [address] Name: *[facility], ED Attending Position: [facility] ED Attendings Patient Name: Ana Laura Mott Position: [facility] ED TA [facility] Member Role: [place] Name: Winsome Jerome RN Position: [facility] ED RN W/OE and Tasks Member Role: Patient Care Provider Name: Aron Galindo MD Position: [facility] ED Medicine MD Member Role: ED Attending Physician Address: Address: [address] [place] [address] [place] [address]- Care Team Related Persons Name: STEW REYNOLDS Address: [place] [address] Name: MARINO CASTREJON Address: home [address] [place] [address]
--- OUTSIDE RECORDS SUMMARY | 2023-08-05 08:59 | XMS_ITS | Continuity of Care Document ---
Author Organization [facility] ter Address [address] [place] [address]- Care Team Providers Care Geologist Name Role Phone Not on Staff, PCP Primary Care Physician Unavail able [place] [facility] [place]11[place] - 07/11/[address] [address]- Discharge Disposition: A-D/C Home Attending Physician: Herberth Stauffer MD Admitting Physician: Herberth Stauffer MD Referring Physician: Not on Staff, Referring [...] 2 Refills, Soft Stop, 11/11/21 16:52:00 EDT, [facility]/pharmacy #[id number], Partial fill upon patient request if the [...] recent to oldest [Reference Range]: 1 2 Height 180 cm (07/11/22 11:33 AM) Weight 72.5 kg (07/11/22 11:33 AM) Oxygen Saturation [94-100 %] 99 % (07/11/22 3:37 PM) 100 % (07/11/22 11:33 AM) Pulse Rate [55-90 bpm] 63 bpm (07/11/22 3:37 PM) 88 bpm (07/11/22 11:33 AM) Blood Pressure [90-138/55-84 mm Hg] 115/ 72mm Hg (07/11/22 3:37 PM) 121/85mm Hg (07/11/22 11:33 AM) Respiratory Rate [16-30 br/min] 16 br/mi n (07/11/22 3:37 PM) 16 br/min (07/11/22 11:33 AM) Temperature [96.8-100.4 DegF] 98.1 DegF (07/11/22 11:33 AM) Mode of Delivery (Oxygen) Room air (07/11/22 3:37 PM) Room air (07/11/22 11:33 AM) Blood pressure sites Arm, left (07/11/22 3:37 PM) Arm, left (07/11/22 11:33 AM) Temperature Route Oral (07/11/22 11:33 AM) Dry Weight 72.5 kg (07/11/22 11:33 AM) Social History Social History Type Response Smoking Status 10 or more cigarette s (1/2 pack or more)/day in last 30 days entered on: 01/05/22 Sex Note * Herberth Stauffer MD: PERFORM Event Display: Patient Education Leaflets Authored Date: [id number] Opiate Overdose ?? [id number] Opiate Overdose You've been treated for an [...] If this happens, you may take an [id number] laxative or suppository. ?? Follow-up care Follow [...] program. ?? Last Reviewed Date: 2021 ?? [id number] [employer]. All rights reserved. This information is not intended as a substitute for professional medical care. Always follow your healthcare professional's instructions. ?? Patient Care team information Care Team Personnel Name: Khushboo Barron RN Position[facility] RN Member Role: Primary Care Nurse Name: Alana Mccollum RN Position: S RN Member Role: Primary Care Nurse Name: Deisi Macias RN Position: S RN Member Role: Primary Care Nurse Name: Not on Staff, PCP Position: [facility] Physician (General Medicine) Member Role: PCP Name: Sydnie KHAN, Leann Position: [facility] RN Member Role: Primary Care Nurse Name: Ramona MACIAS, Greg Position: [facility] Psychiatry MD Member Role: Lifetime Consulting Physician Address: Address: [address] [place] [address] Name: [facility] Attending Position: [facility] ED Attendings Patient Name: Krishna KHAN, Wayne Position: [facility] ED RN W/OE and Tasks Member Role: Patient Care Provider Name: Herberth Stauffer MD Position: [facility] ED Medicine MD Member Role: Admitting Physician Address: Address: [address] [place] [address] Department [place] [address]- Name: Nidhi Stringer Position: [facility] ED [facility] Member Role: Director Of Knowledge Management Care Team Related Persons Name: GAILSTEW Address: [place] [address] Name: MARINO CASTREJON Address: home [address] [place] [address]
--- OUTSIDE RECORDS SUMMARY | 2023-08-05 08:59 | XMS_ITS | Continuity of Care Document ---
Author Organization [facility] ter Address [address] [place] [address]- Care Team Providers Care Whitesmith Name Role Phone Angel Luis Enriquez MD Primary Care Physician [place] [facility] [place]17[place] - 10/18/[address] [address]- Encounter Diagnosis Opioid overdose(Final) - 10/17/22 Discharge Disposition: A-D/C Home Attending Physician: Jacob Dailey MD Admitting Physician: Jacob Dailey MD Referring Physician: Not on Staff, Referring [...] 2 Refills, Soft Stop, 11/11/21 16:52:00 EDT, [facility]/pharmacy #[id number], Partial fill upon patient request if the [...] 3 Oxygen Saturation [94-100 %] 98 % (10/17/22 11:40 PM) 99 % (10/17/22 10:53 PM) 98 % (10/17/22 6:55 PM) Pulse Rate [55-90 bpm] 75 bpm (10/17/22 11:40 PM) 64 bpm (10/17/22 10:53 PM) 61 bpm (10/17/22 6:55 PM) Blood Pressure [90-138/55-84 mm Hg] 120/78mm Hg (10/17/22 11:40 PM) 102/65mm Hg (10/17/22 10:53 PM) 94/66mm Hg (10/17/22 6:55 PM) Respiratory Rate [16-30 br/min] 16 br/min (10/17/22 11:40 PM) 17 br/min (10/17/22 10:53 PM) 18 br/min (10/17/22 6:55 PM) Temperature [96.8-100.4 DegF] 97.9 DegF (10/17/22 10:53 PM) 98.1 DegF (10/17/22 6:55 PM) 98.4 DegF (10/17/22 5:58 PM) Mode of Delivery (Oxygen) Room air (10/17/22 11:40 PM) Room air (10/17/22 10:53 PM) Room air (10/17/22 6:55 PM) Blood pressure sites Arm, right (10/17/22 11:40 PM) Arm, right (10/17/22 10:53 PM) Arm, right (10/17/22 6:55 PM) Temperature Route Oral (10/17/22 10:53 PM) Oral (10/17/22 6:55 PM) Oral (10/17/22 5:58 PM) Social History Social History Type Response Smoking Status 10 or more cigarette s (1/2 pack or more)/day in last 30 days entered on: 01/05/22 Sex EKG study * Event Display: EKG Authored Date: * Event Display: ECG 12-Lead Authored Date: Please click on pdf link to open report * Event Display: ECG 12-Lead Authored Date: Ventricular Rate: 54 BPM Atrial Rate: 54 BPM P-R Interval: 126 ms QRS Duration: 86 ms Q-T Interval: 482 ms QTC Calculation(Bazett): 457 ms P [place]: 18 degrees R [place]: -3 degrees T [place]: -9 degrees Sinus bradycardia with Premature atrial complexes Minimal voltage criteria for LVH, may be normal variant ( R in aVL ) Possible Inferior infarct , age undetermined Abnormal ECG When compared with ECG of 02-SEP-2022 16:48, Premature atrial complexes are now Present Questionable change in QRS axis Confirmed by CLAUDIA MARR ([id number]) on 10/18/2022 7:59:45 AM [place]: CLAUDIA MARR Patient Care team information Care Team Personnel Name: Khushboo Barron RN Position: [facility] RN Member Role: Primary Care Nurse Name: Alana Mccollum RN Position: [facility] RN Member Role: Primary Care Nurse Name: Deisi Macias RN Position: [facility] RN Member Role: Primary Care Nurse Name: Angel Luis Enriquez MD Position: [facility] Resident Member Role: PCP Address: Address: [address] [place] [address] Name: Leann Otoole RN Position: [facility] RN Member Role: Primary Care Nurse Name: Manuel Anderson RN Position: [facility] RN Member Role: Primary Care Nurse Name: Greg Greene MD Position: [facility] Physician - Behavioral Health Member Role: Lifetime Consulting Physician Address: Address: [address] [place] [address] Name: Kolby Helton MD Position: [facility] Resident Member Role: ED Resident Address: Address: [address] [place] [address] Name: Jacob Dailey MD Position: [facility] ED Medicine MD Member Role: Admitting Physician Address: Address: [address] [place] [address]- [place] Name: Ivis Herrera Position: [facility] ED TA [facility] Member Role: Filenet Developer Name: Ana Rosario RN Position: [facility] ED RN W/OE and Tasks Member Role: Patient Care Provider Care Team Related Persons Name: STEW REYNOLDS Address: [place] [address] Name: MARINO CASTREJON Address: home [address] [place] [address]
--- OUTSIDE RECORDS SUMMARY | 2023-08-05 08:59 | XMS_ITS | Continuity of Care Document ---
Author Organization [facility] ter Address [address] [place] [address]- Care Team Providers Care Lead Engineer Name Role Phone Angel Luis Enriquez MD Primary Care Physician Encounter [facility] Date(s): 10/12/22 - 10/13/[address] [address]- Encounter Diagnosis Opiate overdose(Final) - 10/12/22 Polysubstance abuse(Final) - 10/12/22 Discharge Disposition: A-D/C Home Attending Physician: Aron [...] 2 Refills, Soft Stop, 11/11/21 16:52:00 EDT, [facility]/pharmacy #[id number], Partial fill upon patient request if the [...] oldest [Reference Range]: 1 2 3 Height 178 cm (10/12/22 6:18 PM) Weight 71 kg (10/12/22 6:18 PM) Oxygen Saturation [94-100 %] 99 % (10/13/22 3:08 AM) 96 % (10/13/22 1:36 AM) 98 % (10/12/22 11:41 PM) Pulse Rate [55-90 bpm] 60 bpm (10/13/22 3:08 AM) 66 bpm (10/13/22 1:36 AM) 68 bpm (10/12/22 11:41 PM) Blood Pressure [90-138/55-84 mm Hg] 100/70mm Hg (10/13/22 3:08 AM) 122/87mm Hg (10/13/22 1:36 AM) 111/68mm Hg (10/12/22 11:41 PM) Respiratory Rate [16-30 br/min] 14 br/min *L* (10/13/22 3:08 AM) 18 br/min (10/13/22 1:36 AM) 18 br/min (10/12/22 11:41 PM) Temperature [96.8-100.4 DegF] 98.7 DegF (10/12/22 11:41 PM) 99.3 DegF (10/12/22 6:18 PM) Mode of Delivery (Oxygen) Room air (10/13/22 3:08 AM) Room air (10/12/22 11:41 PM) Room air (10/12/22 6:18 PM) Blood pressure sites Arm, left (10/13/22 3:08 AM) Arm, left (10/12/22 11:41 PM) Arm, right (10/12/22 6:18 PM) Temperature Route Oral (10/12/22 11:41 PM) Oral (10/12/22 6:18 PM) Dry Weight 71 kg (10/12/22 6:18 PM) Social History Social History Type Response Smoking Status 10 or more cigarette s (1/2 pack or more)/day in last 30 days entered on: 01/05/22 Sex Note * Dane Arroyo DO: PERFORM Event Display: Patient Education Leaflets Authored Date: [id number] Opiate Overdose ?? [id number] Opiate Overdose You've been treated for an [...] If this happens, you may take an [id number] laxative or suppository. ?? Follow-up care Follow [...] program. ?? Last Reviewed Date: 2021 ?? The [employer]. All rights reserved. This information is not intended as a substitute for professional medical care. Always follow your healthcare professional's instructions. ?? Patient Care team information Care Team Personnel Name: Khushboo Barron RN Position: [facility] RN Member Role: Primary Care Nurse Name: Alana Mccollum RN Position: [facility] RN Member Role: Primary Care Nurse Name: Deisi Macias RN Position: [facility] RN Member Role: Primary Care Nurse Name: Angel Luis Enriquez MD Position: [facility] Resident Member Role: PCP Address: Address: [address] [place] [address] Name: Leann Otoole RN Position: [facility] RN Member Role: Primary Care Nurse Name: Greg Greene MD Position: [facility] Physician - Behavioral Health Member Role: Lifetime Consulting Physician Address: Address: [address] [place] [address] Name: Ana Laura Mott Position: [facility] ED TA [facility] Member Role: Water Manager Name: Stew Myrick RN Position: [facility] ED RN W/OE and Tasks Member Role: Patient Care Provider Name: Dane Arroyo DO Position: [facility] Resident Member Role: ED Resident Address: Address: [address] [place] [address] Name: Aron Galindo MD Position: [facility] ED Medicine MD Member Role: Admitting Physician Address: Address: [address] [place] [address] Care Team Related Persons Name: STEW REYNOLDS Address: [place] [address] Name: MARINO CASTREJON Address: [address] [address]
== END 2023-08-01 02:45 | disposition home or self-care (01) ==
PROVIDERS: Emergency Provider Emergency Medicine
DX: T50.901A Poisoning by unspecified drugs, medicaments and biological substances, accidental (unintentional), initial encounter (principal); F19.90 Other psychoactive substance use, unspecified, uncomplicated; Y92.9 Unspecified place or not applicable; R40.4 Transient alteration of awareness
CPT/HCPCS: 36415; 70450; 72125; 80048; 80076; 80307; 83690; 83735; 84484; 85025; 85610; 93005; 99284; 99285

== ENCOUNTER → 2023-07-31 16:27 | Outpatient (BNV) | payer OTHER, SELFPAY | PROVIDERS: Emergency Provider Emergency Medicine; Visit Provider Internal Medicine Cardiovascular Disease | DX: R41.82 Altered mental status, unspecified (principal) | CPT/HCPCS: 93010 ==

== ENCOUNTER 2023-10-26 15:45 | Emergency (ER) | payer OTHER, SELFPAY ==
--- NOTE | ~2023-10-26 | XR_ITS ---
EXAMINATION: XR HAND/WRIST, LEFT CLINICAL INFORMATION: Pain. COMPARISON: None available. TECHNIQUE: PA, lateral, oblique, and scaphoid views of the left hand and wrist. FINDINGS: The study is limited, as a clinical history does not describe exactly where in the hand or what type of pathology is suspected. In addition, lateral view is limited, as the fingers overlap one another. Therefore, clinical correlation is recommended. Examination demonstrates soft tissue swelling which appears predominantly located over the dorsum of the hand. Question calcification dorsal to the wrist, raising the possibility of fracture of the triquetrum. The scapholunate space measures approximately 3 mm, raising the possibility of scapholunate dissociation. Joint spaces otherwise appear maintained. No subcutaneous air or foreign body is noted. No lytic or sclerotic bony lesion is seen. XR/XR hand wrist LT IMPRESSION: Findings as above. Electronically signed by: Reji Charles MD 10/26/2023 05:58 PM EDT
--- NOTE | ~2023-10-26 | CT_ITS ---
EXAMINATION: CT HEAD WITHOUT CONTRAST CT CERVICAL SPINE WITHOUT CONTRAST CLINICAL INFORMATION: Trauma. COMPARISON: Head and cervical spine CT dated 07/31/2023. TECHNIQUE: Contiguous axial imaging was performed from the skullbase to vertex without intravenous administration of contrast. Multidetector helical imaging was performed through the cervical spine. This CT examination was performed using dose optimization techniques as appropriate, variously including the following: *Automated exposure control *Adjustment of mA and/or kV according to patient size (this includes techniques or standardized protocols for targeted exams where dose is matched to indication/reason for exam; i.e. extremities or head) *Use of iterative reconstruction technique DLP: 745, 360 mGy-cm. FINDINGS: HEAD: There is no evidence of acute intracranial hemorrhage or territorial infarction. No abnormal mass effect or midline shift is seen. No extra-axial fluid collections are identified. The ventricles are normal in size. Brain parenchymal attenuation is normal. Chronic right orbital floor fracture with depression and nasal bone fractures. Severe degenerative changes in the condylar head of the left temporomandibular joint. The soft tissues are normal. The mastoid air cells and visualized portions of the paranasal sinuses are well aerated. CERVICAL SPINE: No acute fracture or subluxation is identified in the cervical spine. Mild to moderate loss of disc height with endplate spurring noted at the C5-C6 and C6-C7 levels with mild multilevel facet arthropathy. Mild rightward cervical spinal curvature noted. The atlantoaxial articulation is normally maintained. The paraspinal soft tissues are normal. The lung apices are clear. CT/CT cervical spine wo IV con IMPRESSION: 1. No acute intracranial pathology. 2. No evidence of acute cervical spine traumatic injury. Multilevel cervical spondylosis. 3. Chronic right orbital floor fracture and nasal bone fractures. Electronically signed by: Marcos Gregory MD 10/26/2023 05:59 PM EDT
--- NOTE | ~2023-10-26 | XR_ITS ---
EXAMINATION: XR CHEST CLINICAL INFORMATION: Trauma. COMPARISON: June 05, 2022. TECHNIQUE: Portable AP view of the chest was obtained. FINDINGS: The study is limited by portable technique and suboptimal inspiration. Small bibasilar patchy density suggestive fibrotic streaks, atelectasis, and/or infiltrates. No consolidation, effusion, or pneumothorax is seen. The cardiac silhouette is suboptimally evaluated, probably within normal limits. Mediastinum, diaphragm, bones, and soft tissues appear unremarkable. XR/XR chest 1V IMPRESSION: Findings as above. Electronically signed by: Reji Charles MD 10/26/2023 05:53 PM EDT
[2023-10-26 15:56] VITALS: BP 114/72; BP 120/72; PULSE 73; PULSE 78; RESP 20; TEMP 36.9; O2SAT 96; BMI 25.8
--- NOTE | 2023-10-26 16:02 | PC.NURSE ---
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 patient pupils pinpoint, patient drowsy, falls asleep during questions. respirations equal and unlabored, skin dry and intact. patient changed into hospital attire.
[2023-10-26 16:14] LABS: MANUAL DIFF FLAG NO
[2023-10-26 16:15] LABS: Basophils Percent Auto 0.5 % (0-2); Eosinophils Absolute Auto 0.1 X10*3/uL (0.0-0.4); Eosinophils Percent Auto 1.5 % (0-4); Hematocrit 38.3 % (42.0-52.0); Hemoglobin 13.3 g/dl (14.0-18.0); Imm Gran Abs Auto 0.03 X10*3/uL (0.00-0.03); Imm Gran Pct Auto 0.4 % (0.0-0.4); Lymphocytes Absolute Auto 1.1 X10*3/uL (1.2-4.9); Lymphocytes Percent Auto 15.4 % (20-40); Mean Corpuscular HGB Conc 34.7 g/dl (31.0-36.0); Mean Corpuscular Hemoglobin 29.8 pg (27.0-33.0); Mean Corpuscular Volume 85.9 fL (80.0-98.0); Mean Platelet Volume 8.5 fL (9.4-12.4); Monocytes Absolute Auto 0.5 X10*3/uL (0.1-1.2); Monocytes Percent Auto 6.5 % (2-11); Neutrophils Absolute Auto 5.6 x10*3/uL (2.0-8.3); Neutrophils Percent Auto 75.7 % (45-73); Platelet Count 174 X10*3/uL (160-400); Red Blood Count 4.46 X10*6/uL (4.60-5.80); Red Cell Distribution Width 13.6 % (11.0-16.0); White Blood Count 7.4 X10*3/uL (4.8-10.8)
--- NOTE | 2023-10-26 16:17 | PC.NURSE ---
Addendum entered by Annette Bullard RN 10/26/23 16:20: patient found to have abrasion to the left hip, and swollen left hand Original Note: iv established in the left AC #20, labs drawn and obtained
[2023-10-26 16:53] LABS: Alanine Aminotransferase 10 U/L (0-40); Alkaline Phosphatase 77 U/L (39-117); Anion Gap 12 (12-20); Aspartate Amino Transferase 14 U/L (5-37); Bilirubin Total 0.2 mg/dL (0.0-1.0); Blood Urea Nitrogen 21 mg/dL (9-16); Calcium 9.4 mg/dL (8.4-10.2); Carbon Dioxide 26 mmol/L (22-29); Chloride 106 mmol/L (96-108); Creatinine Clr Calc Pharmacy 54.5; Estimated Glomerular Filt Rate 56; Ethanol < 10 mg/dL; Glucose Random 161 mg/dL (60-115); Potassium 3.9 mmol/L (3.3-5.1); Sodium 140 mmol/L (135-145); Total Protein 6.5 g/dL (6.5-8.0)
--- NOTE | 2023-10-26 17:43 | PC.NURSE ---
patient took off hospital clothes, was attempting to elope but couldnt find belongings. patient unsteady on his feet, alert but not oriented to situation or place. patient wants to leave, redirected with pudding and back in bed in hospital attire on
--- NOTE | 2023-10-26 17:46 | PC.NURSE ---
patient appears to be having self dialogue in room, when asked who he was talking to patient states he wants to leave.
--- NOTE | 2023-10-26 18:15 | ED_ITS ---
HPI - General Adult General Chief complaint: Fall Stated complaint: leg/hip pain. fell and hit guard rail Time Seen by Provider: 10/26/23 16:02 Source: patient, RN notes reviewed and old records reviewed Mode of arrival: EMS Limitations: altered mental status History of Present Illness ED Provider: Sveta KIMBLE narrative: 53-year-old male presents for evaluation after reported fall Patient is a very poor historian He reports that he drank a beer today but denies any drug use He appears to be falling asleep during the interview He offers no complaints He does admit that his left hand is swollen but is not currently painful He is unsure if he fell on it to injure or ?maybe I was punching things. ? He denies any headache or neck pain He has no complaints or concerns at this time Related Data Previous Rx's ?Medication ?Instructions ?Recorded amoxicillin 875 mg-potassium 1 tab PO BID 10 days #20 tabs 04/30/21 clavulanate 125 mg tablet Allergies Allergy/AdvReac Type Severity Reaction Status Date / Time No Known Allergies Allergy Verified 10/26/23 16:00 Review of Systems 2 Constitutional: Constitutional: Denies chills, Denies fever(s) and Denies headache(s) Eyes: Eyes: Denies blurry vision ENT: Denies dizziness and Denies headache(s) Cardiovascular: Cardiovascular: Denies chest pain and Denies dyspnea Respiratory: Respiratory: Denies cough and Denies dyspnea Gastrointestinal: Gastrointestinal: Denies abdominal pain, Denies nausea and Denies vomiting Musculoskeletal: Musculoskeletal: Denies back pain and Reports joint swelling Integumentary/Breasts: Skin/Breast: Denies rash Neurologic: Denies dizziness and Denies headache(s) Psychiatric: Psychiatric: Denies anxiety and Denies suicidal ideation [facility] Past Medical History Medical History Polysubstance abuse Acute alcohol intoxication Social History Social History Alcohol intake: current Alcohol intake frequency: 3 or more drinks per day Alcohol type: beer Patient Tobacco Use Status: Never used Tobacco Substance Use Type: Prescription Drugs Advance Directives: No Advance Directives Information Provided: No Do you have a plan to hurt others: No Plan Physical Exam ED Vital Signs: Vital Signs - 24 hr 10/26/23 15:56 10/26/23 18:49 Temperature 98.4 F Pulse Rate 78 65 Respiratory Rate 20 12 Blood Pressure 114/72 101/61 Pulse Oximetry 96 97 Oxygen Delivery Method Room Air Room Air BMI result Body Mass Index 25.8 Const General: comfortable, no acute distress and intoxicated appearing Nutritional Appearance: well nourished Limitations: altered mental status HENMT Head: Yes normocephalic and Yes atraumatic Throat: Yes posterior oropharynx normal Eyes Other: Pupils pinpoint Eyelids: Yes eyelids normal Conjunctivae: conjunctivae normal Sclerae: sclerae normal Corneas: corneas normal EOM: EOMs intact bilaterally Neck Neck: Yes full ROM Resp Effort & Inspection: normal respiratory effort, able to speak in complete sentences, no audible wheezes and not labored Auscultation: clear to auscultation bilaterally Cardio Rate: regular rate Rhythm: regular rhythm GI Inspection: No distended Palpation (GI): Soft to palpation, not firm, nontender, no guarding and not rigid Skin General skin exam: elasticity normal Neuro Cranial nerves: Yes Bilaterally intact EOM present Extrem Other: Patient has edema to the left hand without overlying skin changes such as wounds or erythema. There is an abrasion to the left posterior shoulder Course Reevaluation(s) Reevaluation #1: Patient awake, alert and oriented, he is ambulating with a steady, even gait. Tox screen pending the remainder of his workup largely unremarkable. He was requesting discharge at this time Time: 22:58 Medical Decision Making Medical Decision Making MDM Narrative: 53-year-old male presents for evaluation after a reported fall today. The patient admits to drinking alcohol today but only admits to drinking one 24 oz beer. He denies any substance abuse. He does have a long history of alcohol intoxication and substance abuse/overdose. However given that he appears all is a poor historian with multiple falls with a CT scan of the brain, C-spine, chest x-ray. We will get an x-ray of the left hand and wrist that appears edematous and will check basic labs and a drug screen. Differential Diagnosis Differential Diagnoses: The differential diagnosis associated with the presentation includes CVA less likely Intracranial hemorrhage Substance abuse Acute alcohol intoxication Lab Data 10/26/23 16:10 10/26/23 16:10 Labs: Lab Results 08/28/24 08/28/24 Range/Units 16:10 23:06 WBC 7.4 (4.8-10.8) X10*3/uL RBC 4.46 L (4.60-5.80) X10*6/uL Hgb 13.3 L (14.0-18.0) g/dl Hct 38.3 L (42.0-52.0) % MCV 85.9 (80.0-98.0) fL MCH 29.8 (27.0-33.0) pg MCHC 34.7 (31.0-36.0) g/dl RDW 13.6 (11.0-16.0) % Plt Count 174 (160-400) X10*3/uL MPV 8.5 L (9.4-12.4) fL Immature Gran % (Auto) 0.4 (0.0-0.4) % Neut % (Auto) 75.7 H (45-73) % Lymph % (Auto) 15.4 L (20-40) % [place] % (Auto) 6.5 (2-11) % Eos % (Auto) 1.5 (0-4) % Baso % (Auto) 0.5 (0-2) % Lymph # (Auto) 1.1 L (1.2-4.9) X10*3/uL [place] # (Auto) 0.5 (0.1-1.2) X10*3/uL Eos # (Auto) 0.1 (0.0-0.4) X10*3/uL Baso # (Auto) 0.0 (0.0-0.2) X10*3/uL Abs Immat Gran (auto) 0.03 (0.00-0.03) X10*3/uL Absolute Neuts (auto) 5.6 (2.0-8.3) x10*3/uL Absolute Nucleated RBC 0.000 (0.0-0.012) X10*3/uL Nucleated RBC % (auto) 0.0 (0.0-0.2) /100WBC Sodium 140 (135-145) mmol/L Potassium 3.9 (3.3-5.1) mmol/L Chloride 106 (96-108) mmol/L Carbon Dioxide 26 (22-29) mmol/L Anion Gap 12 (12-20) BUN 21 H (9-16) mg/dL Creatinine 1.33 (0.5-1.4) mg/dL Estim Creat Clear Calc 54.5 Estimated GFR 56 Random Glucose 161 H (60-115) mg/dL Calcium 9.4 (8.4-10.2) mg/dL Total Bilirubin 0.2 (0.0-1.0) mg/dL AST 14 (5-37) U/L ALT 10 (0-40) U/L Alkaline Phosphatase 77 (39-117) U/L Total Protein 6.5 (6.5-8.0) g/dL Albumin 4.0 (3.5-5.0) g/dL Urine Color Yellow Urine Appearance Clear Urine pH 5.5 (5.0-9.0) Ur Specific [place] 1.020 (1.005-1.025) Urine Protein Negative (Neg-Trace) mg/dL Urine Glucose (UA) Negative (Negative) mg/dL Urine Ketones Negative (Negative) mg/dL Urine Blood Negative (Negative) Urine Nitrite Negative (Negative) Ur Leukocyte Esterase Negative (Negative) Ethyl Alcohol < 10 mg/dL Discharge Plan Discharge Clinical Impression: Fall, Localized swelling on left hand Patient Disposition: Home, Self-Care Instructions: Fall Prevention (ED), Swollen Joint (ED) Additional Instructions: Your workup in the ER today was reassuring. This includes your CT scans, your x-rays did not show any obvious fractures. Your blood work was reassuring Follow-up with your primary doctor, return for new or worsening symptoms Prescriptions: No Action amoxicillin-pot clavulanate 875-125 mg tablet 1 tab PO BID 10 Days Qty: 20 0RF Print Language: Latvian
[2023-10-26 18:49] VITALS: BP 101/61; PULSE 65; RESP 12; O2SAT 97
[2023-10-26 23:12] LABS: Appearance Urine Clear; Color Urine Yellow; Glucose Urine UA Negative (Negative); Leukocyte Esterase Urine Negative (Negative); Nitrite Urine Negative (Negative); PH 5.5 (5.0-9.0); Urine Blood Negative (Negative); Urine Ketones Negative (Negative); Urine Protein Negative (Neg-Trace)
[2023-10-27 00:41] VITALS: BP 116/63; PULSE 80; RESP 17; TEMP 36.8; O2SAT 96
[2023-10-27 00:54] LABS: Amphetamine Screen Urine Not Detected (Not Detect); Barbiturates, Urine Not Detected (Not Detect); Benzodiazepines Screen Urine Not Detected (Not Detect); Buprenorphine Scr Not Detected (Not Detect); Cannabinoid Screen Urine POSITIVE (Not Detect); Cocaine Screen Urine POSITIVE (Not Detect); Fentanyl, urine POSITIVE (Not Detect); Methadone Screen, Urine Positive (Not Detect); Opiate Screen Urine POSITIVE (Not Detect); Oxycodone Screen Urine Not Detected (Not Detect); Phencyclidine Screen Urine Not Detected (Not Detect)
== END 2023-10-27 01:44 | disposition home or self-care (01) ==
PROVIDERS: Emergency Provider Emergency Medicine
DX: M79.89 Other specified soft tissue disorders (principal); M79.642 Pain in left hand; Z91.81 History of falling; R41.82 Altered mental status, unspecified; F19.10 Other psychoactive substance abuse, uncomplicated
CPT/HCPCS: 36415; 70450; 71045; 72125; 73110; 73130; 80053; 80307; 81003; 85025; 99284

== ENCOUNTER 2024-04-24 10:07 | Emergency (ER) | payer OTHER, SELFPAY ==
[2024-04-24] VITALS (8 sets, daily range): BP systolic 109–160; BP diastolic 67–85; PULSE 52–88; RESP 14–18; TEMP 36.4–36.9; O2SAT 94–100; BMI 22.6
--- NOTE | ~2024-04-24 | CT_ITS ---
EXAMINATION: CT CERVICAL SPINE WITHOUT CONTRAST CLINICAL INFORMATION: Unresponsive. COMPARISON: October 26, 2023. TECHNIQUE: Contiguous axial images through the cervical spine using 3 mm collimation with bone and soft tissue algorithm. Sagittal and coronal reformatted images acquired. This CT examination was performed using dose optimization techniques as appropriate, variously including the following: *Automated exposure control *Adjustment of mA and/or kV according to patient size (this includes techniques or standardized protocols for targeted exams where dose is matched to indication/reason for exam; i.e. extremities or head) *Use of iterative reconstruction technique DLP: 328.22 mGy centimeter FINDINGS: Craniocervical junction is intact. Degenerative changes in the periodontal C1 region. Marginal osteophyte formation decreased intervertebral disc height at C5-6, C4-5, C6-7 and to a lesser extent C3-4 levels. Facet joint hypertrophy, bilaterally at C4-5 C5-6 and to a lesser extent C6-7 and C3-4 levels. C1 is intact. C2 is intact. C3 is intact. C4 is intact. C5 is intact. C6 is intact. C3 7 is intact. No prevertebral compartment hematoma. No gross malalignment between the vertebral bodies or the facet joints. CT/CT cervical spine wo IV con IMPRESSION: Multilevel cervical spondylosis more conspicuous at C5-6 without acute fracture or trauma-related listhesis. Fleischner guidelines were followed. Electronically signed by: Lalito Najera MD 04/24/2024 11:53 AM EST
--- NOTE | ~2024-04-24 | CT_ITS ---
EXAMINATION: CT HEAD WITHOUT IV CONTRAST HISTORY: Unresponsive. TECHNIQUE: Unenhanced helical CT of the head was performed per standard departmental protocol. Coronal and sagittal reformats of the head were also evaluated. One or more of the following techniques was used for dose reduction: Automated exposure control, adjustment of the mA and/or kV according to patient size, use of iterative reconstruction technique. DLP: 812.80 mGy-cm COMPARISON: Comparison is made with the prior examination dated 10/26/2023. FINDINGS: BRAIN: The brain parenchyma is unremarkable. There is normal hernández/white differentiation. The ventricular system is normal in size and configuration. There is no mass effect or midline shift. No intra- or extra-axial fluid collections are identified. SINUSES: The visualized paranasal sinuses are clear. The mastoid air cells and middle ear cavities are well pneumatized. ORBITS: The visualized orbits are unremarkable. BONES/SOFT TISSUES: The extracranial soft tissues are unremarkable. Again seen are chronic fractures of the nasal bones and the anterior wall of the right maxillary sinus. No acute fracture is seen. There is degenerative change of the left temporomandibular joint. No suspicious lytic or sclerotic lesions. CT/CT head/brain wo IV con IMPRESSION: No acute intracranial abnormality. Electronically signed by: Michael Mason MD 04/24/2024 11:44 AM [facility]
--- NOTE | 2024-04-24 10:18 | ECG_ITS ---
Test Reason : unresponsive Blood Pressure : */* mmHG Vent. Rate : 82 BPM Atrial Rate : 82 BPM P-R Int : 118 ms QRS Dur : 84 ms QT Int : 362 ms P-R-T Axes : 64 79 10 degrees QTcB Int : 422 ms Normal sinus rhythm Nonspecific ST and T wave abnormality Abnormal ECG When compared with ECG of 31-Jul-2023 16:33, Vent. rate has increased by 32 bpm T wave inversion now evident in Inferior leads Nonspecific T wave abnormality now evident in Lateral leads Referred By: Myriam Clemons Electronically Signed By: TRAMAINE BARRON
--- NOTE | 2024-04-24 10:25 | ED.GENADULT ---
HPI - General Adult General Chief complaint: Overdose Stated complaint: FOUND UNRESP,PINPOINT,NARCAN GIVEN W/GOOD RESULT Time Seen by Provider: 04/24/24 10:09 Source: patient, EMS, RN notes reviewed and old records reviewed Mode of arrival: EMS History of Present Illness ED Provider: Myriam Clemons PA-C [facility] narrative: 53-year-old male with a past medical history of substance abuse, ETOH abuse, presenting to the ED via EMS s/p being found unresponsive in snow bank while shoveling with pinpoint pupils. Given 0.5 mg of IV Narcan with positive result. C-collar placed by EMS. Patient not compliant/cooperative with history or physical at this time Related Data Previous Rx's ?Medication ?Instructions ?Recorded amoxicillin 875 mg-potassium 1 tab PO BID 10 days #20 tabs 04/30/21 clavulanate 125 mg tablet Allergies Allergy/AdvReac Type Severity Reaction Status Date / Time No Known Allergies Allergy Verified 04/24/24 10:36 Review of Systems Review of Systems: Yes all other systems are reviewed and are negative Constitutional: Constitutional: Reports as per [facility] Past Medical History Attestation statement: The following information was validated with the patient. Source: old records reviewed Medical History Polysubstance abuse Acute alcohol intoxication Social History Social History Unable to assess alcohol history related to: Unable to respond Alcohol intake: current Alcohol intake frequency: 3 or more drinks per day Alcohol type: beer Patient Tobacco Use Status: Never used Tobacco Use of substances other than those prescribed or required for medical reasons: Yes Substance Use Type: Heroin Advance Directives: No Advance Directives Information Provided: No Do you have a plan to hurt others: No Plan Physical Exam ED Vital Signs: Vital Signs - 24 hr 04/24/24 10:34 04/24/24 11:20 04/24/24 12:00 Temperature 97.6 F 97.6 F 97.9 F Pulse Rate 88 76 71 Respiratory Rate 18 18 17 Blood Pressure 130/76 138/83 132/72 Pulse Oximetry 98 97 94 Oxygen Delivery Method Room Air Room Air Room Air Oxygen Flow Rate 04/24/24 14:28 Temperature 98.5 F Pulse Rate 73 Respiratory Rate 16 Blood Pressure 109/67 Pulse Oximetry 97 Oxygen Delivery Method Nasal Cannula Oxygen Flow Rate 2 BMI result Body Mass Index 22.6 Const Other: Appears under the influence, alert to voice, uncooperative General: no acute distress HENMT Head: Yes normal to inspection and Yes atraumatic Ears: hearing grossly normal bilaterally General nose exam: Normal external nose present Face and sinus: Yes normal facial exam Eyes General: appearance normal, both eyes and all related structures Pupils: Equal, round and reactive pupils present EOM: EOMs intact bilaterally Neck Neck: Yes normal visual inspection and Yes no meningeal signs Resp Effort & Inspection: normal respiratory effort and no respiratory distress Cardio Rate: regular rate GI Inspection: Yes normal to inspection Palpation (GI): Soft to palpation, nontender, no guarding and not rigid Skin Rashes: no rashes Wounds: no wounds Neuro General: tone normal, no meningeal signs and CN's II-XI intact bilaterally Cranial nerves: Yes CN's II-XII intact bilaterally and Yes Equal, round and reactive pupils present Extrem General: Yes normal to inspection Course Course Course Narrative: 1455--no leukocytosis. H/H stable. Labs otherwise reassuring, troponin x2 negative > RI unlikely -tox screen positive for opiates, methadone, fentanyl, cocaine, marijuana -viral testing negative CT head/brain wo IV con IMPRESSION: No acute intracranial abnormality. CT cervical spine wo IV con IMPRESSION: Multilevel cervical spondylosis more conspicuous at C5-6 without acute fracture or trauma-related listhesis. Fleischner guidelines were followed. >1456--on re-evaluation patient is sleeping comfortably. In no apparent distress. Physician observation initiated as patient needs more time for clinical sobriety and Recovery consult >1630-- ED care transferred to AMANDA Srivastava pending clinical sobriety and recovery team consult Medications Administered Discontinued Medications Generic Name Dose Route Start Last Admin Trade Name Freq PRN Reason Stop Dose Admin Naloxone HCl 0.4 mg 04/24/24 11:01 04/24/24 11:14 Naloxone Hcl 0.4 Mg/Ml Vial IVPUSH 04/24/24 11:02 0.4 mg STAT STA Administration Medical Decision Making Medical Decision Making [facility] Narrative: 53-year-old male with a past medical history of substance abuse, ETOH abuse, presenting to the ED via EMS s/p being found unresponsive in snow bank while shoveling with pinpoint pupils. Given 0.5 mg of IV Narcan with positive result. C-collar placed by EMS. Patient not compliant/cooperative with history or physical. On exam C-collar in place, uncooperative, no evidence of trauma. Concern for overdose vs ?ACS. Lower suspicion for acute dissection, infectious etiology or metabolic abnormalities Plan: EKG, labs, tox screen, head/C-spine CT Please refer to course for remaining clinical decision making, interpretation of labs/imaging results, and discussions with consultants and/or family members. Differential Diagnosis Differential Diagnoses: The differential diagnosis associated with the presentation includes As above Admission/Observation Consideration of admission/observation: Escalation of care including admission/observation considered Lab Data MDM Lab Attestation statement: I reviewed the patient's lab results. 04/24/24 10:59 04/24/24 10:59 Labs: Lab Results 04/24/24 04/24/24 04/24/24 Range/Units 10:55 10:59 12:16 WBC 5.8 (4.8-10.8) X10*3/uL RBC 4.09 L (4.60-5.80) X10*6/uL Hgb 12.2 L (14.0-18.0) g/dl Hct 35.8 L (42.0-52.0) % MCV 87.5 (80.0-98.0) fL MCH 29.8 (27.0-33.0) pg MCHC 34.1 (31.0-36.0) g/dl RDW 13.2 (11.0-16.0) % Plt Count 206 (160-400) X10*3/uL MPV 8.5 L (9.4-12.4) fL Immature Gran % (Auto) 0.2 (0.0-0.4) % Neut % (Auto) 60.0 (45-73) % Lymph % (Auto) 28.1 (20-40) % Edwards % (Auto) 7.7 (2-11) % Eos % (Auto) 3.1 (0-4) % Baso % (Auto) 0.9 (0-2) % Lymph # (Auto) 1.6 (1.2-4.9) X10*3/uL Edwards # (Auto) 0.5 (0.1-1.2) X10*3/uL Eos # (Auto) 0.2 (0.0-0.4) X10*3/uL Baso # (Auto) 0.1 (0.0-0.2) X10*3/uL Abs Immat Gran (auto) 0.01 (0.00-0.03) X10*3/uL Absolute Neuts (auto) 3.5 (2.0-8.3) x10*3/uL Absolute Nucleated RBC 0.000 (0.0-0.012) X10*3/uL Nucleated RBC % (auto) 0.0 (0.0-0.2) /100WBC PT 11.7 (10.9-12.4) SEC INR 1.0 (0.9-1.1) Sodium 142 (135-145) mmol/L Potassium 3.6 (3.3-5.1) mmol/L Chloride 109 H (96-108) mmol/L Carbon Dioxide 28 (22-29) mmol/L Anion Gap 9 L (12-20) BUN 16 (9-16) mg/dL Creatinine 0.82 (0.5-1.4) mg/dL Estim Creat Clear Calc 91.4 Estimated GFR > 60 Random Glucose 76 (60-115) mg/dL Calcium 8.9 (8.4-10.2) mg/dL Magnesium 2.2 (1.6-2.6) mg/dL Total Bilirubin 0.3 (0.0-1.0) mg/dL Direct Bilirubin 0.1 (0.0-0.5) mg/dL AST 18 (5-37) U/L ALT 9 (0-40) U/L Alkaline Phosphatase 69 (39-117) U/L Troponin I High Sens < 2.7 (<3.5-35.0) ng/L Total Protein 7.0 (6.5-8.0) g/dL Albumin 3.8 (3.5-5.0) g/dL Urine Opiates Screen POSITIVE H (Not Detect) Ur Buprenorphine Scrn Not Detected (Not Detect) ng/mL Ur Oxycodone Screen Not Detected (Not Detect) ng/mL Urine Methadone Screen Positive H (Not Detect) ng/mL Urine Fentanyl Screen POSITIVE H (Not Detect) Ur Barbiturates Screen Not Detected (Not Detect) Ur Phencyclidine Scrn Not Detected (Not Detect) Ur Amphetamines Screen Not Detected (Not Detect) U Benzodiazepines Scrn Not Detected (Not Detect) Urine Cocaine Screen POSITIVE H (Not Detect) U Marijuana (THC) Screen POSITIVE H (Not Detect) Ethyl Alcohol 10 mg/dL Influenza Type A (PCR) NEGATIVE (Negative) Influenza Type B (PCR) NEGATIVE (Negative) RSV RNA Qual (PCR) NEGATIVE (Negative) SARS-CoV-2 RNA (RT-PCR) NEGATIVE (Negative) 04/24/24 Range/Units 14:12 WBC (4.8-10.8) X10*3/uL RBC (4.60-5.80) X10*6/uL Hgb (14.0-18.0) g/dl Hct (42.0-52.0) % MCV (80.0-98.0) fL MCH (27.0-33.0) pg MCHC (31.0-36.0) g/dl RDW (11.0-16.0) % Plt Count (160-400) X10*3/uL MPV (9.4-12.4) fL Immature Gran % (Auto) (0.0-0.4) % Neut % (Auto) (45-73) % Lymph % (Auto) (20-40) % Edwards % (Auto) (2-11) % Eos % (Auto) (0-4) % Baso % (Auto) (0-2) % Lymph # (Auto) (1.2-4.9) X10*3/uL Edwards # (Auto) (0.1-1.2) X10*3/uL Eos # (Auto) (0.0-0.4) X10*3/uL Baso # (Auto) (0.0-0.2) X10*3/uL Abs Immat Gran (auto) (0.00-0.03) X10*3/uL Absolute Neuts (auto) (2.0-8.3) x10*3/uL Absolute Nucleated RBC (0.0-0.012) X10*3/uL Nucleated RBC % (auto) (0.0-0.2) /100WBC PT (10.9-12.4) SEC INR (0.9-1.1) Sodium (135-145) mmol/L Potassium (3.3-5.1) mmol/L Chloride (96-108) mmol/L Carbon Dioxide (22-29) mmol/L Anion Gap (12-20) BUN (9-16) mg/dL Creatinine (0.5-1.4) mg/dL Estim Creat Clear Calc Estimated GFR Random Glucose (60-115) mg/dL Calcium (8.4-10.2) mg/dL Magnesium (1.6-2.6) mg/dL Total Bilirubin (0.0-1.0) mg/dL Direct Bilirubin (0.0-0.5) mg/dL AST (5-37) U/L ALT (0-40) U/L Alkaline Phosphatase (39-117) U/L Troponin I High Sens < 2.7 (<3.5-35.0) ng/L Total Protein (6.5-8.0) g/dL Albumin (3.5-5.0) g/dL Urine Opiates Screen (Not Detect) Ur Buprenorphine Scrn (Not Detect) ng/mL Ur Oxycodone Screen (Not Detect) ng/mL Urine Methadone Screen (Not Detect) ng/mL Urine Fentanyl Screen (Not Detect) Ur Barbiturates Screen (Not Detect) Ur Phencyclidine Scrn (Not Detect) Ur Amphetamines Screen (Not Detect) U Benzodiazepines Scrn (Not Detect) Urine Cocaine Screen (Not Detect) U Marijuana (THC) Screen (Not Detect) Ethyl Alcohol mg/dL Influenza Type A (PCR) (Negative) Influenza Type B (PCR) (Negative) RSV RNA Qual (PCR) (Negative) SARS-CoV-2 RNA (RT-PCR) (Negative) Independent Interpretation I performed an independent interpretation of an: EKG and CT Scan Radiology Impression Discussion of test interpretation with radiology: I have reviewed the radiologist's reading. Independent Historian Clinical information obtained from an independent historian. History obtained from or confirmed by: EMS External Record Review External record reviewed: Inpatient record, Office record, Outpatient record, Prior outpatient labs, Prior outpatient radiology, Primary care record and Outside ED record Tests considered The following testing was considered but not selected: As above Chronic Conditions Patient?s care impacted by: Other Social Determinants Patient?s care significantly limited by Social Determinants of Health including: Low income, Alcoholism and drug addiction in family, Problems related to primary support group and Other Social Determinant of Health Discharge Plan Discharge Clinical Impression: Polysubstance abuse, Overdose Patient Disposition: Still a Patient Instructions: Adult Overdose (ED) Additional Instructions: Overdose You were seen in our Emergency Department for an overdose today. You received narcan in order to reverse the effects of overdose. Narcan only lasts about 45 min to 1 hour in the system. You may have been given narcan to take home with you today, please keep it near you if you are going to use again, so others can use it if needed.? The number one risk for fatal overdose is using alone? [employer] is a 20/09 hotline where you can be on the phone with someone while you use, and they can call for help if they suspect an overdose: [phone] Things to look out for when you leave include severe vomiting or diarrhea, headaches, muscle cramps, fever, coughing, chest pain, or if you feel so short of breath you cannot walk to the bathroom. Please seek care and return any time for worsening symptoms.? You may have been provided with safer injection?items, please take time to take care of YOU and your health. Use new supplies whenever possible to lessen the chances of infections and other illnesses.? If you need more supplies, please go [facility],? [address] [place] [address] OR you can call or text to coordinate delivery of safer supplies. If you decide you want to stop or cut down on how much you?re using, please call the numbers on the list provided to you or you can come to our outpatient Addiction Treatment office [facility] (M-F 9am-5p) [address] [place] [address]. [phone] Prescriptions: No Action amoxicillin-pot clavulanate 875-125 mg tablet 1 tab PO BID 10 Days Qty: 20 0RF Referrals: [facility] [Provider Group] [facility] [Outside] - 1 week Physician,Unknown J [Primary Care Provider] - Print Language: Georgian
--- NOTE | 2024-04-24 10:46 | PC.NURSE ---
Pt arrives to ED responsive to verbal stimuli, not responding to questions/commands appropriately. Per EMS, pt was found unresponsive in a snow bank, pin point pupils, non-reactive to light. EMS gave 0.5mg IVP Narcan and pt became responsive. Unable to determine orientation, not responding to questions. Arrives in C-collar. Labs/EKG obtained. Placed on quality assurance monitor body/capnography for safety. Call wren within reach, all needs met at this time.
[2024-04-24 11:03] LABS: MANUAL DIFF FLAG NO
[2024-04-24 11:04] LABS: Basophils Absolute Auto 0.1 X10*3/uL (0.0-0.2); Basophils Percent Auto 0.9 % (0-2); Eosinophils Absolute Auto 0.2 X10*3/uL (0.0-0.4); Eosinophils Percent Auto 3.1 % (0-4); Hematocrit 35.8 % (42.0-52.0); Hemoglobin 12.2 g/dl (14.0-18.0); Imm Gran Abs Auto 0.01 X10*3/uL (0.00-0.03); Imm Gran Pct Auto 0.2 % (0.0-0.4); Lymphocytes Absolute Auto 1.6 X10*3/uL (1.2-4.9); Lymphocytes Percent Auto 28.1 % (20-40); Mean Corpuscular HGB Conc 34.1 g/dl (31.0-36.0); Mean Corpuscular Hemoglobin 29.8 pg (27.0-33.0); Mean Corpuscular Volume 87.5 fL (80.0-98.0); Mean Platelet Volume 8.5 fL (9.4-12.4); Monocytes Absolute Auto 0.5 X10*3/uL (0.1-1.2); Monocytes Percent Auto 7.7 % (2-11); Neutrophils Absolute Auto 3.5 x10*3/uL (2.0-8.3); Platelet Count 206 X10*3/uL (160-400); Red Blood Count 4.09 X10*6/uL (4.60-5.80); Red Cell Distribution Width 13.2 % (11.0-16.0); White Blood Count 5.8 X10*3/uL (4.8-10.8)
[2024-04-24 11:09] LABS: Prothrombin Time 11.7 SEC (10.9-12.4)
[2024-04-24] MEDS: Naloxone HCl 0.4 MG/ML VIAL IVPUSH (11:14)
--- NOTE | 2024-04-24 11:18 | PC.NURSE ---
Pt became minimally responsive to painful stimuli. AMANDA Miguel made aware. 0.4mg IVP Narcan given, refer to MAR. Pt now responding to verbal stimuli, still not answering questions/following commands appropriately. Able to protect own airway- maintaining O2 sat high 90s on RA. Remains in C-collar for safety. Vitals updated, call wren within reach, all needs met at this time.
[2024-04-24 11:23] LABS: Alanine Aminotransferase 9 U/L (0-40); Albumin Level 3.8 g/dL (3.5-5.0); Alkaline Phosphatase 69 U/L (39-117); Anion Gap 9 (12-20); Aspartate Amino Transferase 18 U/L (5-37); Bilirubin Direct 0.1 mg/dL (0.0-0.5); Bilirubin Total 0.3 mg/dL (0.0-1.0); Blood Urea Nitrogen 16 mg/dL (9-16); Calcium 8.9 mg/dL (8.4-10.2); Carbon Dioxide 28 mmol/L (22-29); Chloride 109 mmol/L (96-108); Creatinine Clr Calc Pharmacy 91.4; Estimated Glomerular Filt Rate > 60; Ethanol 10 mg/dL; Glucose Random 76 mg/dL (60-115); Magnesium 2.2 mg/dL (1.6-2.6); Potassium 3.6 mmol/L (3.3-5.1); Sodium 142 mmol/L (135-145)
[2024-04-24 11:40] LABS: Influenza A PCR NEGATIVE (Negative); Influenza B PCR NEGATIVE (Negative); Resp Syncy Virus RNA Qual PCR NEGATIVE (Negative); SARS COV2 PCR INHOUSE NEGATIVE (Negative)
--- NOTE | 2024-04-24 11:40 | HO.SUDE ---
T/W attempted to provide pt. with SUDE along with support and resources following a referral received from ED. Pt had received Narcan in the field and another dose in ED. VSS were stable but pt. would not arouse to voice or touch. He did shift a little but did not awaken. ED nurse will contact [facility] if/when pt. becomes more alert for us to provide services/support.
[2024-04-24 11:47] LABS: Troponin-I High Sensitivity < 2.7 ng/L (<3.5-35.0)
[2024-04-24 12:35] LABS: Amphetamine Screen Urine Not Detected (Not Detect); Barbiturates, Urine Not Detected (Not Detect); Benzodiazepines Screen Urine Not Detected (Not Detect); Buprenorphine Scr Not Detected (Not Detect); Cannabinoid Screen Urine POSITIVE (Not Detect); Cocaine Screen Urine POSITIVE (Not Detect); Fentanyl, urine POSITIVE (Not Detect); Methadone Screen, Urine Positive (Not Detect); Opiate Screen Urine POSITIVE (Not Detect); Oxycodone Screen Urine Not Detected (Not Detect); Phencyclidine Screen Urine Not Detected (Not Detect)
--- NOTE | 2024-04-24 13:51 | HO.SUDE ---
Second attempt to meet with pt to discuss OD and offer support and resources. Pt very combative until he was able to use the bathroom then went back to sleep with minimal response to voice or touch and with garbled speech.
[2024-04-24 14:42] LABS: Troponin-I High Sensitivity < 2.7 ng/L (<3.5-35.0)
--- OUTSIDE RECORDS SUMMARY | 2024-04-24 15:15 | XMS_ITS | Clinical Summary ---
Author Organization [facility] ity Address [address] [place] [address] Care Team Providers Care Play Reader Name Role Phone Unavailable Primary Care Provider Unavailabl e Social History Tobacco Use Types Packs/Day Years Used Date Smoking Tobacco: Never Assessed Sex and Gender Information Value Date Recorded Sex Assigned at Not on file Legal Sex Male 5:19 AM EST Gender Identity Not on file Sexual Orientation Not on file Plan of Treatment Health Maintenance Due Date Last Done Comments DTaP,Tdap,and Td Vaccines (1 - Tdap) 05/15/1987 Hepatitis A Vaccines (1 of 2 - Risk 2-dose series) 05/15/1987 Hepatitis B Vaccines (1 of 3 - 19+ 3-dose series) 05/15/1987 Pneumococcal Vaccine: 50+ Ye ars (1 of 1 - PCV) 2018 Zoster Vaccines (1 of 2) 2018 Cholesterol Screening (Lipid Panel) 01/31/2022 Colorectal Cancer Screening: Colonoscopy 01/31/2022 Depression Screening 01/31/2022 HIV Screening 01/31/2022 Hepatitis C Screening 01/31/2022 Social Influencers of Health Screening 01/31/2022 COVID-19 Vaccine ( - 2023-2 5 season) 2023 Influenza Vaccine (#1) 2023 HIB Vaccines Aged Out No longer eligi ble based on patient's age to complete this topic HPV Vaccines Aged Out No longer eligi ble based on patient's age to complete this topic IPV Vaccines Aged Out No longer eligi ble based on patient's age to complete this topic MMR Vaccines Aged Out No longer eligi ble based on patient's age to complete this topic Meningococcal ACWY Vaccine Aged Out N o longer eligible based on patient's age to complete this topic Meningococcal B Vacine Aged Out No lo nger eligible based on patient's age to complete this topic Pneumococcal Vaccine: Pediat rics (0 to 5 Years) and At-Risk Patients (6 to 64 Years) Aged Out No longer eligible b ased on patient's age to complete this topic RSV Immunization Patients Un franc[place] 20 months Aged Out No longer eligible b ased on patient's age to complete this topic Varicella Vaccines Aged Out No longer eligible based on patient's age to complete this topic
[2024-04-24] MEDS: Naloxone HCl Nasal TAKE HOME 4 MG SPRAY 8 MG NOSTRILALT (16:12)
== END 2024-04-24 20:54 ==
PROVIDERS: Physician Assistant; Emergency Provider Emergency Medicine
DX: T40.1X1A Poisoning by heroin, accidental (unintentional), initial encounter (principal); Y92.9 Unspecified place or not applicable; R40.4 Transient alteration of awareness; F11.10 Opioid abuse, uncomplicated; R51.9 Headache, unspecified; M54.2 Cervicalgia; R94.31 Abnormal electrocardiogram [ECG] [EKG]; Z03.818 Encounter for observation for suspected exposure to other biological agents ruled out; Z51.81 Encounter for therapeutic drug level monitoring; Z79.899 Other long term (current) drug therapy
CPT/HCPCS: 0241U; 36415; 70450; 72125; 80048; 80076; 80307; 83735; 84484; 85025; 85610; 93005; 99285; J2310

== ENCOUNTER → 2024-04-24 10:17 | Outpatient (BNV) | payer OTHER, SELFPAY | PROVIDERS: Emergency Provider Emergency Medicine; Visit Provider Radiology Diagnostic Radiology | DX: T50.901A Poisoning by unspecified drugs, medicaments and biological substances, accidental (unintentional), initial encounter (principal); M47.812 Spondylosis without myelopathy or radiculopathy, cervical region; R45.6 Violent behavior | CPT/HCPCS: 70450; 72125 ==

== ENCOUNTER → 2024-04-24 10:18 | Outpatient (BNV) | payer OTHER, SELFPAY | PROVIDERS: Emergency Provider Emergency Medicine; Visit Provider Internal Medicine | DX: R94.31 Abnormal electrocardiogram [ECG] [EKG] (principal); R40.20 Unspecified coma | CPT/HCPCS: 93010 ==

== ENCOUNTER 2024-05-25 10:23 | Emergency (ER) | payer OTHER, SELFPAY ==
--- NOTE | 2024-05-25 10:34 | ED_ITS ---
HPI - Psych General Chief Complaint: Psychiatric Symptoms Stated Complaint: HI towards clinic staff. Calm/cooperative per ems Time Seen by Provider: 05/25/24 10:31 Source: patient, EMS and old records reviewed Mode of arrival: EMS Limitations: no limitations History of Present Illness ED Provider: ALBERT KIMBLE Narrative: 54 yo male with PMH of ETOH abuse and substance abuse who presents today with c/o being angry with methadone clinic they would not dose him after he admitted to taking 6mg klonopin last night and he appeared sleepy. He denies any issues no SI/HI. [facility] was going to be involved then he made threats to staff and police were called. He states he is fine. complaint: homicidal ideation and anxiety Onset (ago): hour(s) (few) Duration: resolved prior to arrival History of same: Yes Relieving factors: none Exacerbating factors: drug use Associated psychiatric symptoms: none Associated symptoms: denies other symptoms Treatments prior to arrival: none Related Data Home Medications ?Medication ?Instructions ?Recorded ?Confirmed methadone 10 mg/mL oral 205 mg PO DAILY 05/25/24 05/25/24 concentrate (Methadone Intensol) Previous Rx's ?Medication ?Instructions ?Recorded amoxicillin 875 mg-potassium 1 tab PO BID 10 days #20 tabs 04/30/21 clavulanate 125 mg tablet Allergies Allergy/AdvReac Type Severity Reaction Status Date / Time No Known Allergies Allergy Verified 05/25/24 10:44 Review of Systems 2 Review of Systems: Constitutional : No Fever, No Chills ENT/Mouth : No Ear Pain, No Nasal Congestion, No sore throat Eyes: No Eye Pain, No Swelling, No Redness Cardiovascular : No Chest Pain, No SOB Respiratory : No Cough, No Sputum, No Dyspnea Gastrointestinal : No Nausea, No Vomiting, No Diarrhea, No Hematochezia, No Melena Genitourinary : No Dysuria, No Urinary Frequency, No Hematuria Musculoskeletal : No Myalgias Skin : No Skin Lesions, No rash Neuro : No Weakness, No Numbness, No Paresthesias, No Dizziness, No Headache Psych : no Anxiety, no Depression, no SI/HI All other systems reviewed and are negative PMFSH Past Medical History Attestation statement: The following information was validated with the patient. Source: old records reviewed Medical History Polysubstance abuse Acute alcohol intoxication Social History Social History Unable to assess alcohol history related to: Unable to respond Alcohol intake: current Alcohol intake frequency: 3 or more drinks per day Alcohol type: beer Patient Tobacco Use Status: Never used Tobacco Smoked in Last 30 Days: Yes Use of substances other than those prescribed or required for medical reasons: Yes Substance Use Type: Crack/Cocaine and Heroin Substance Use Frequency: Daily Advance Directives: No Advance Directives Information Provided: Yes Physical Exam 2 Vital Signs: Vital Signs: Last Vital Signs Temp 98.8 F 05/25/24 10:43 Pulse 94 05/25/24 10:43 Resp 16 05/25/24 10:43 BP 111/70 05/25/24 10:43 Pulse Ox 98 05/25/24 10:43 O2 Del Method Room Air 05/25/24 10:43 BMI result Body Mass Index 22.2 Appearance: Alert. Oriented X3. No acute distress. Eyes: Pupils equal, round and reactive to light. ENT: Pharynx normal. Neck: Normal inspection. Neck supple. CVS: Normal heart rate and rhythm. Pulses normal. Respiratory: No respiratory distress. Breath sounds normal. Abdomen: Soft and nontender. Skin: Skin warm and dry. Normal skin color. Normal skin turgor. Extremities: No lower extremity edema. No calf ttp Neuro: Oriented X 3. No motor deficit. No sensory deficit. CN2-12 intact Medications Administered Discontinued Medications Generic Name Dose Route Start Last Admin Trade Name Freq PRN Reason Stop Dose Admin Methadone HCl 205 mg 05/25/24 12:45 05/25/24 12:38 Methadone Hcl 20 Mg/2 Ml Oral.Conc PO 05/25/24 12:46 205 mg ONCE ONE Administration Medical Decision Making Medical Decision Making MDM Narrative: 54 yo male with PMH of ETOH abuse and substance abuse who presents today with c/o agitation and aggression after not being dosed at clinic today due to klonopin abuse last night. He denies SI/HI. He will need to be observed and refer to CARE team Differential Diagnosis Differential Diagnoses: The differential diagnosis associated with the presentation includes drug abuse, misuse, aggression Admission/Observation Consideration of admission/observation: Escalation of care including admission/observation considered physician observation started at 1123am pending CARE team observation care revealed that the patient does NOT meet psychiatric necessity for hospitalization. final disposition discussed with the patient. The patient completed observation care at 320pm Consult Healthcare Provider Management of the patient was discussed with: Behavioral Health Provider Lab Data MDM Lab Attestation statement: I reviewed the patient's lab results. 05/25/24 10:51 05/25/24 10:51 Labs: Lab Results 05/25/24 05/25/24 Range/Units 10:39 10:51 WBC 5.7 (4.8-10.8) X10*3/uL RBC 4.21 L (4.60-5.80) X10*6/uL Hgb 12.5 L (14.0-18.0) g/dl Hct 36.7 L (42.0-52.0) % MCV 87.2 (80.0-98.0) fL MCH 29.7 (27.0-33.0) pg MCHC 34.1 (31.0-36.0) g/dl RDW 13.1 (11.0-16.0) % Plt Count 235 (160-400) X10*3/uL MPV 8.6 L (9.4-12.4) fL Immature Gran % (Auto) 0.3 (0.0-0.4) % Neut % (Auto) 64.0 (45-73) % Lymph % (Auto) 27.2 (20-40) % [place] % (Auto) 7.1 (2-11) % Eos % (Auto) 0.9 (0-4) % Baso % (Auto) 0.5 (0-2) % Lymph # (Auto) 1.6 (1.2-4.9) X10*3/uL [place] # (Auto) 0.4 (0.1-1.2) X10*3/uL Eos # (Auto) 0.1 (0.0-0.4) X10*3/uL Baso # (Auto) 0.0 (0.0-0.2) X10*3/uL Abs Immat Gran (auto) 0.02 (0.00-0.03) X10*3/uL Absolute Neuts (auto) 3.7 (2.0-8.3) x10*3/uL Absolute Nucleated RBC 0.000 (0.0-0.012) X10*3/uL Nucleated RBC % (auto) 0.0 (0.0-0.2) /100WBC Sodium 141 (135-145) mmol/L Potassium 3.6 (3.3-5.1) mmol/L Chloride 107 (96-108) mmol/L Carbon Dioxide 30 H (22-29) mmol/L Anion Gap 8 L (12-20) BUN 13 (9-16) mg/dL Creatinine 0.86 (0.5-1.4) mg/dL Estim Creat Clear Calc 95.3 Estimated GFR > 60 Random Glucose 183 H (60-115) mg/dL Calcium 9.0 (8.4-10.2) mg/dL Magnesium 2.0 (1.6-2.6) mg/dL Total Bilirubin 0.3 (0.0-1.0) mg/dL Direct Bilirubin 0.1 (0.0-0.5) mg/dL AST 16 (5-37) U/L ALT 7 (0-40) U/L Alkaline Phosphatase 69 (39-117) U/L Total Protein 6.5 (6.5-8.0) g/dL Albumin 3.7 (3.5-5.0) g/dL Urine Color Yellow Urine Appearance Clear Urine pH 5.5 (5.0-9.0) Ur Specific [place] 1.015 (1.005-1.025) Urine Protein Negative (Neg-Trace) mg/dL Urine Glucose (UA) 100 H (Negative) mg/dL Urine Ketones Trace (Negative) mg/dL Urine Blood Negative (Negative) Urine Nitrite Negative (Negative) Ur Leukocyte Esterase Negative (Negative) Urine Opiates Screen Not Detected (Not Detect) Ur Buprenorphine Scrn Not Detected (Not Detect) ng/mL Ur Oxycodone Screen Not Detected (Not Detect) ng/mL Urine Methadone Screen Positive H (Not Detect) ng/mL Urine Fentanyl Screen POSITIVE H (Not Detect) Ur Barbiturates Screen Not Detected (Not Detect) Ur Phencyclidine Scrn Not Detected (Not Detect) Ur Amphetamines Screen Not Detected (Not Detect) U Benzodiazepines Scrn POSITIVE H (Not Detect) Urine Cocaine Screen POSITIVE H (Not Detect) U Marijuana (THC) Screen Not Detected (Not Detect) Ethyl Alcohol < 10 mg/dL Independent Historian Clinical information obtained from an independent historian. History obtained from or confirmed by: EMS External Record Review External record reviewed: Outpatient record Discharge Plan Discharge Clinical Impression: Polysubstance abuse Patient Disposition: Home, Self-Care Instructions: Polysubstance Abuse (ED) Additional Instructions: you were given 205mg methadone at [facility] on 05/25/24 You were seen in our Emergency Department today for treatment of a behavioral health issue. It is important after your visit that you follow up with either your behavioral health provider or a primary care doctor within 7 days.? If you have trouble finding a therapist you can reach out to [address] [phone] The National Suicide and Crisis Lifeline can be reached 7 days a week 24 hours a day.? Call 988 to speak with someone.? Return for any worsening symptoms or concerns such as thoughts of self harm or harm to others. Please call 911 if you feel your mental health is worsening.? Prescriptions: No Action amoxicillin-pot clavulanate 875-125 mg tablet 1 tab PO BID 10 Days Qty: 20 0RF methadone [Methadone Intensol] 10 mg/mL Concentrate 205 mg PO DAILY Interventions: [place]-Suicide Risk Severity Scale Last Done: 05/25/24 10:51 Print Language: Tajik
[2024-05-25 10:43] VITALS: BP 111/70; PULSE 94; RESP 16; TEMP 37.1; O2SAT 98; BMI 22.2
--- NOTE | 2024-05-25 10:48 | PC.NURSE ---
PT SOMNOLENT, ABLE TO ANSWER QUESTIONS THOUGH FALL ASLEEP MID SENTENCE, EASILY ROUSED. WAS NOT DOSED THIS AM AT [facility].
[2024-05-25 10:49] LABS: Appearance Urine Clear; Color Urine Yellow; Glucose Urine UA 100 mg/dL (Negative); Leukocyte Esterase Urine Negative (Negative); Nitrite Urine Negative (Negative); PH 5.5 (5.0-9.0); Specific Gravity - Urine 1.015 (1.005-1.025); Urine Blood Negative (Negative); Urine Ketones Trace mg/dL (Negative); Urine Protein Negative (Neg-Trace)
[2024-05-25 10:55] LABS: MANUAL DIFF FLAG NO
[2024-05-25 10:57] LABS: Amphetamine Screen Urine Not Detected (Not Detect); Barbiturates, Urine Not Detected (Not Detect); Benzodiazepines Screen Urine POSITIVE (Not Detect); Buprenorphine Scr Not Detected (Not Detect); Cannabinoid Screen Urine Not Detected (Not Detect); Cocaine Screen Urine POSITIVE (Not Detect); Fentanyl, urine POSITIVE (Not Detect); Methadone Screen, Urine Positive (Not Detect); Opiate Screen Urine Not Detected (Not Detect); Oxycodone Screen Urine Not Detected (Not Detect); Phencyclidine Screen Urine Not Detected (Not Detect)
[2024-05-25 10:58] LABS: Basophils Percent Auto 0.5 % (0-2); Eosinophils Absolute Auto 0.1 X10*3/uL (0.0-0.4); Eosinophils Percent Auto 0.9 % (0-4); Hematocrit 36.7 % (42.0-52.0); Hemoglobin 12.5 g/dl (14.0-18.0); Imm Gran Abs Auto 0.02 X10*3/uL (0.00-0.03); Imm Gran Pct Auto 0.3 % (0.0-0.4); Lymphocytes Absolute Auto 1.6 X10*3/uL (1.2-4.9); Lymphocytes Percent Auto 27.2 % (20-40); Mean Corpuscular HGB Conc 34.1 g/dl (31.0-36.0); Mean Corpuscular Hemoglobin 29.7 pg (27.0-33.0); Mean Corpuscular Volume 87.2 fL (80.0-98.0); Mean Platelet Volume 8.6 fL (9.4-12.4); Monocytes Absolute Auto 0.4 X10*3/uL (0.1-1.2); Monocytes Percent Auto 7.1 % (2-11); Neutrophils Absolute Auto 3.7 x10*3/uL (2.0-8.3); Platelet Count 235 X10*3/uL (160-400); Red Blood Count 4.21 X10*6/uL (4.60-5.80); Red Cell Distribution Width 13.1 % (11.0-16.0); White Blood Count 5.7 X10*3/uL (4.8-10.8)
[2024-05-25 11:13] LABS: Ethanol < 10 mg/dL
--- NOTE | 2024-05-25 11:14 | PC.NURSE ---
Addendum entered by Kathia Mcfadden RN 05/25/24 11:17: spoke with Desiree ROSEN at [facility] Original Note: Spoke with [facility], they report they last dosed patient with 205mg MTD yesteday 05/24/24. They refused to give him his dose this AM as he presented overly sedated. He admitted to taking 6mg clonazepam last night. They brought [facility] staff in to speak with him, conversation became heated and he began to make verbal threats.
[2024-05-25 11:17] LABS: Alanine Aminotransferase 7 U/L (0-40); Albumin Level 3.7 g/dL (3.5-5.0); Alkaline Phosphatase 69 U/L (39-117); Anion Gap 8 (12-20); Aspartate Amino Transferase 16 U/L (5-37); Bilirubin Direct 0.1 mg/dL (0.0-0.5); Bilirubin Total 0.3 mg/dL (0.0-1.0); Blood Urea Nitrogen 13 mg/dL (9-16); Carbon Dioxide 30 mmol/L (22-29); Chloride 107 mmol/L (96-108); Creatinine Clr Calc Pharmacy 95.3; Estimated Glomerular Filt Rate > 60; Glucose Random 183 mg/dL (60-115); Potassium 3.6 mmol/L (3.3-5.1); Sodium 141 mmol/L (135-145); Total Protein 6.5 g/dL (6.5-8.0)
--- NOTE | 2024-05-25 12:20 | PC.NURSE ---
pt up from room, making phone calls, becoming frustrated about being sent here. appears more alert, dosed for methadone as he is outpt.
--- NOTE | 2024-05-25 12:30 | HE.PHANOTE ---
METHADONE Pt last received 205mg, last dosed at [facility] ([phone]) on 05/24/24 per SILAS Ramírez.
[2024-05-25] MEDS: methADONE HCl 20 MG/2 ML ORAL.CONC 205 MG PO (12:38)
--- NOTE | 2024-05-25 14:20 | MHC.EDTECH ---
Security brought patients jacket, provided to them by EMS from patients earlier transportation to ED. Patient confirms this is his jacket. Belongings list updated to reflect.
[2024-05-25 15:38] VITALS: BP 128/82; PULSE 57; RESP 16; TEMP 36.6; O2SAT 98
== END 2024-05-25 15:39 | disposition home or self-care (01) ==
PROVIDERS: Emergency Provider Emergency Medicine
DX: F19.10 Other psychoactive substance abuse, uncomplicated (principal); R45.850 Homicidal ideations; F41.9 Anxiety disorder, unspecified; F10.10 Alcohol abuse, uncomplicated; Y90.0 Blood alcohol level of less than 20 mg/100 ml; F11.20 Opioid dependence, uncomplicated
CPT/HCPCS: 36415; 80048; 80076; 80307; 81003; 83735; 85025; 99284; S9485

== ENCOUNTER 2024-06-11 18:42 | Emergency (ER) | payer OTHER, SELFPAY ==
[2024-06-11 18:51] VITALS: BP 148/84; PULSE 103; O2SAT 97
[2024-06-11 19:01] VITALS: BP 134/78; PULSE 90; RESP 16; TEMP 36.7; O2SAT 98; BMI 25.1
--- NOTE | 2024-06-11 19:12 | PC.NURSE ---
Patient changed over into a hospital attire in presence of security. Patient's belongings/2 bags are secured in [facility] lower shelf.
--- NOTE | 2024-06-11 19:29 | PC.NURSE ---
this rn assumed care of pt, pt a&ox4, respirations even and unlabored. pt reports he had come home after drinking and endorsing drugs. pt reports he lost his keys and tried to break the window when his arm sustained lacerations. pt noted to have two lacs to the right forearm. bleeding controlled. pt arm re wrapped. pt changed by security for safety.
[2024-06-11 20:00] VITALS: BP 119/71; PULSE 78; RESP 16; TEMP 36.6; O2SAT 97
[2024-06-11 22:00] VITALS: BP 121/73; PULSE 91; RESP 16; TEMP 36.8; O2SAT 98
--- NOTE | 2024-06-11 23:40 | ED_ITS ---
HPI - Wound/Laceration General Chief Complaint: Wound/Laceration Stated Complaint: laceration forearm Time Seen by Provider: 06/11/24 23:35 Source: patient Mode of arrival: ambulatory Limitations: no limitations History of Present Illness ED Provider: Dr. Luke Lawrence HPI narrative: 54-year-old male who presents emergency department for evaluation of lacerations to the right forearm. The patient was using heroin and drank alcohol. He states that he lost his keys. When he went to his house he was unable to get in so he punched a window and sustained 2 lacerations to his right forearm. Patient was brought to emergency department by ambulance. Patient was not know when his last tetanus shot was given Related Data Home Medications ?Medication ?Instructions ?Recorded ?Confirmed methadone 10 mg/mL oral 205 mg PO DAILY 05/25/24 05/25/24 concentrate (Methadone Intensol) Previous Rx's ?Medication ?Instructions ?Recorded amoxicillin 875 mg-potassium 1 tab PO BID 10 days #20 tabs 04/30/21 clavulanate 125 mg tablet Allergies Allergy/AdvReac Type Severity Reaction Status Date / Time No Known Allergies Allergy Verified 06/11/24 19:01 [facility] Past Medical History Medical History Polysubstance abuse Acute alcohol intoxication Social History Social History Unable to assess alcohol history related to: Unable to respond Alcohol intake: current Alcohol intake frequency: 3 or more drinks per day Alcohol type: beer Patient Tobacco Use Status: Never used Tobacco Smoked in Last 30 Days: No Use of substances other than those prescribed or required for medical reasons: Yes Substance Use Type: Crack/Cocaine and Heroin Advance Directives: No Advance Directives Information Provided: Yes Physical Exam Vital Signs: Vital Signs: Last Vital Signs Temp 98.6 F 06/12/24 00:38 Pulse 89 06/12/24 00:38 Resp 20 06/12/24 00:38 BP 132/80 06/12/24 00:38 Pulse Ox 96 06/12/24 00:38 O2 Del Method Room Air 06/12/24 00:38 BMI result Body Mass Index 25.1 Vital signs were normal Exam Right forearm: Patient has a 4 cm full skin thickness C shaped laceration and a 2 cm full skin thickness laceration to his forearm. Patient was arm was neurovascularly intact Medications Administered Discontinued Medications Generic Name Dose Route Start Last Admin Trade Name Gypsy PRN Reason Stop Dose Admin Bacitracin 1 appl 06/12/24 00:14 06/12/24 00:26 Bacitracin Oint 0.9 Gm Packet TOPICAL 06/12/24 00:15 1 appl ONCE ONE Administration Protocol Diphtheria/Tetanus/Acell Pertussis 0.5 ml 06/11/24 23:40 06/12/24 00:26 Diphth,Pertus(Acell),Tet Adult 0.5 Ml Syringe IM 06/11/24 23:41 0.5 ml .ONCE ONE Administration Lidocaine HCl 5 ml 06/11/24 23:40 06/11/24 23:45 Lidocaine Hcl 1 % Mpf 5 Ml Vial INFILTRATI 06/11/24 23:41 5 ml ONCE STA Administration Lidocaine HCl 5 ml 06/11/24 23:40 06/11/24 23:45 Lidocaine Hcl 1 % Mpf 5 Ml Vial INFILTRATI 06/11/24 23:41 5 ml ONCE ONE Administration Medical Decision Making Medical Decision Making MDM Narrative: 54-year-old male who presents emergency department for evaluation of lacerations to the right forearm. The patient was using heroin and drank alcohol. He states that he lost his keys. When he went to his house he was unable to get in so he punched a window and sustained 2 lacerations to his right forearm. Patient was brought to emergency department by ambulance. Patient was not know when his last tetanus shot was given. Vital signs were normal examination revealed to lacerations which were full skin thickness and required repair. Differential diagnosis: ?Includes but is not limited to laceration, tendon injury, foreign body Course: 00:17 The patient was lacerations were prepped with Betadine, anesthetized 1% lidocaine, explored, irrigated and closed with betty. Patient tolerated the procedure well. The patient was given a Tdap. patient was advised to take Tylenol and ibuprofen for pain. He was told that the betty need to be removed in 10-14 days and he did see his PCP, go to urgent care return to the emergency department for this procedure. I did discuss the patient's heroin use disorder and treatment options with him. At this time he does not want to seek treatment. He was given the number to our [facility] and the safe supply service. He was discharged with intranasal Narcan and given instructions on how to use this medication. He was given printed and verbal instructions and discharged home. Admission/Observation Consideration of admission/observation: Escalation of care including admission/observation considered (No) Chronic Conditions Patient?s care impacted by: Other (Alcohol use disorder, heroin use disorder) Procedures Procedure Narrative Procedure Narrative: Right forearm lacerations repair: Laceration#1 : 4.0 cm C-shaped laceration full skin thickness : The patient gave me informed verbal consent to proceed. The patient's laceration was prepped with Betadine and then anesthetized with 1% lidocaine x5 cc. The wound was explored and there were no foreign bodies found in the wound to the best my ability. The wound was then irrigated using an 18 gauge needle and a 50 cc syringe. 150 cc of normal saline was used to irrigate the wound. The wound was then closed in 1 layer with 11 betty. The patient tolerated the procedure well. The wound was covered with bacitracin and a nonstick dressing applied. Patient tolerated the procedure well. Right forearm lacerations repair: Laceration#1 : 2.0 cm laceration full skin thickness : The patient gave me informed verbal consent to proceed. The patient's laceration was prepped with Betadine and then anesthetized with 1% lidocaine x5 cc. The wound was explored and there were no foreign bodies found in the wound to the best my ability. The wound was then irrigated using an 18 gauge needle and a 50 cc syringe. 100 cc of normal saline was used to irrigate the wound. The wound was then closed in 1 layer with 4 betty. The patient tolerated the procedure well. The wound was covered with bacitracin and a nonstick dressing applied. Patient tolerated the procedure well. Discharge Plan Discharge Clinical Impression: Stapled skin wound, Laceration of right forearm, Alcohol use disorder, Heroin use Patient Disposition: Home, Self-Care Instructions: Laceration (ED) Additional Instructions: You had 2 lacerations to your right forearm which were stapled. The betty need to stay in for 10-14 days. Your doctor, an urgent care or the ER can remove the betty Apply bacitracin twice a day until the betty were removed. Take ibuprofen 200 mg pills, 2 pills every 6 hours as needed for pain or fever. Take Tylenol (acetaminophen) 500 mg pills, 2 pills every 6 hours as needed for pain or fever. Follow-up with your doctor in 2 days. Please return to the emergency department if your symptoms get worse or if you develop any symptoms that are concerning to you. You should consider getting help for your opiate use disorder Your are being discharged home with intranasal Narcan. If you are going to continue to use heroin, you should make sure that there is a sober person with you that is not using drugs and that this person can ad medical transcriber intranasal Narcan in the event that you stop breathing. If you decide you want to stop or cut down on how much you?re using, you can call or walk into our outpatient Addiction Treatment office: [facility] (M-F 9am-5p) [address], [address] [phone] You may have been provided with safer injection?items, please take time to take care of YOU and your health. Use new supplies whenever possible to lessen the chances of infections and other illnesses.? ?If you need more supplies, please go [facility],? [address] [place] [address] OR you can call or text to coordinate delivery of safer supplies. You were also provided a list of several treatment providers in the area.? If you experience any worsening symptoms you cannot control please return to the ED or call 911. Please follow up at your next appointment. Things to look out for are fevers, chest pain, shortness of breath, severe pain, dizziness, fainting or any other concerns. Prescriptions: No Action amoxicillin-pot clavulanate 875-125 mg tablet 1 tab PO BID 10 Days Qty: 20 0RF methadone [Methadone Intensol] 10 mg/mL Concentrate 205 mg PO DAILY Interventions: ED Discharge Assessment Last Done: 06/12/24 00:38 Discharge Date/Time: 06/12/24 00:44 Print Language: Swazi
[2024-06-11] MEDS: Lidocaine HCl 1 % MPF 5 ML VIAL INFILTRATI ×2 (23:45)
[2024-06-12] MEDS: Bacitracin Oint 0.9 GM PACKET 1 APPL TOPICAL (00:26)
[2024-06-12] MEDS: Diphth,Pertus(ACell),Tet Adult 0.5 ML SYRINGE IM (00:26)
[2024-06-12 00:38] VITALS: BP 132/80; PULSE 89; RESP 20; TEMP 37; O2SAT 96
--- NOTE | 2024-06-12 00:38 | PC.NURSE ---
at bedside to place stitches in pt forearm. pt given dc instructions and belongings. pt offers no questions at this time, vss.
== END 2024-06-12 00:44 | disposition home or self-care (01) ==
PROVIDERS: Emergency Provider Emergency Medicine Emergency Medical Services
DX: S51.811A Laceration without foreign body of right forearm, initial encounter (principal); F11.10 Opioid abuse, uncomplicated; F10.10 Alcohol abuse, uncomplicated; W25.XXXA Contact with sharp glass, initial encounter; Y93.9 Activity, unspecified; Y92.9 Unspecified place or not applicable; Y99.8 Other external cause status; Z79.899 Other long term (current) drug therapy; Z23 Encounter for immunization
CPT/HCPCS: 12032; 90471; 90715; 99284; J2003

== ENCOUNTER 2024-06-20 00:47 | Emergency (ER) | payer OTHER, SELFPAY ==
--- NOTE | 2024-06-20 | ECG_ITS ---
Test Reason : AMS Blood Pressure : */* mmHG Vent. Rate : 55 BPM Atrial Rate : 55 BPM P-R Int : 128 ms QRS Dur : 90 ms QT Int : 458 ms P-R-T Axes : 39 41 20 degrees QTcB Int : 438 ms Sinus bradycardia Nonspecific T wave abnormality Abnormal ECG When compared with ECG of 24-Apr-2024 10:29, Vent. rate has decreased by [address] no longer depressed in Anterior leads Referred By: Generic ED Physician Electronically Signed By: TRAMAINE BARRON
[2024-06-20 00:57] VITALS: BP 123/77; PULSE 60; RESP 15; TEMP 36.5; O2SAT 95
[2024-06-20 01:04] VITALS: BP 112/72; PULSE 66; O2SAT 99
[2024-06-20 01:06] VITALS: BP 116/74; PULSE 58; RESP 11; TEMP 36.6; O2SAT 96; BMI 23.9
--- NOTE | 2024-06-20 02:21 | ED_ITS ---
HPI - General Adult General Chief complaint: General Medical Stated complaint: ams, wandering Time Seen by Provider: 06/20/24 02:21 Source: patient and EMS Mode of arrival: EMS Limitations: no limitations History of Present Illness ED Provider: DR. Bolton HPI narrative: 54-year-old male with PMH of ETOH use and substance abuse presented today after was found in the street by PD intoxicated. Patient admits to using street drugs used methadone and cocaine earlier, patient admit to alcohol drank earlier yesterday, no head injury. Related Data Home Medications ?Medication ?Instructions ?Recorded ?Confirmed methadone 10 mg/mL oral 205 mg PO DAILY 05/25/24 05/25/24 concentrate (Methadone Intensol) Previous Rx's ?Medication ?Instructions ?Recorded amoxicillin 875 mg-potassium 1 tab PO BID 10 days #20 tabs 04/30/21 clavulanate 125 mg tablet Allergies Allergy/AdvReac Type Severity Reaction Status Date / Time No Known Allergies Allergy Verified 06/20/24 01:18 Review of Systems 2 Review of Systems: All other systems are reviewed and are negative Constitutional: Reports as per HPI and Reports no additional constitutional complaints Eyes: Reports as per HPI and Reports no additional eye complaints Reports system reviewed and no additional complaints, except as documented Cardiovascular: Reports as per HPI and Reports no additional cardiovascular complaints Respiratory: Reports as per HPI and Reports no additional respiratory complaints Gastrointestinal: Reports as per HPI and Reports no additional gastrointestinal complaints Genitourinary: Reports no additional female genitourinary complaints Musculoskeletal: Reports no additional musculoskeletal complaints Skin/Breast: Reports system reviewed and no additional complaints, except as docu Psychiatric: Reports no additional psychiatric complaints Endocrine: Reports no additional endocrine complaints Hematologic/Lymphatic: Reports no additional hematologic/lymphatic complaints Allergic/Immunologic: Reports no additional allergic/immunologic complaints Reports system reviewed and no additional complaints, except as documented and Reports Abnormal speech present Yes all other systems are reviewed and are negative [facility] Past Medical History Medical History Polysubstance abuse Acute alcohol intoxication Social History Social History Unable to assess alcohol history related to: Unable to respond Alcohol intake: current Alcohol intake frequency: 3 or more drinks per day Alcohol type: beer Patient Tobacco Use Status: Never used Tobacco Substance Use Type: Crack/Cocaine and Heroin Advance Directives: No Physical Exam ED Vital Signs: Vital Signs - 24 hr 06/20/24 00:57 06/20/24 01:06 06/20/24 02:33 Temperature 97.7 F 97.8 F 97.6 F Pulse Rate 60 58 57 Respiratory Rate 15 11 L 12 Blood Pressure 123/77 116/74 110/77 Pulse Oximetry 95 96 98 Oxygen Delivery Method Room Air Room Air Room Air 06/20/24 05:07 Temperature 97.6 F Pulse Rate 56 Respiratory Rate 9 L Blood Pressure 110/69 Pulse Oximetry 97 Oxygen Delivery Method Room Air BMI result Body Mass Index 23.9 Vital signs have been reviewed and appear to be correct. Blood pressure elevated. Heart rate normal. Respiratory rate normal. Temperature normal. Oxygen saturation normal. Appearance: Intoxicated, No acute distress. Head: Normal external exam. Normocephalic. Atraumatic. No Christine signs noted. No raccoon eyes noted Eyes: PERRLA. EOMI. Conjunctiva and sclera normal. Eyelids normal. ENT: TM's Normal. Pharynx normal. Uvula midline. Moist mucous membranes. No trismus noted. No drooling noted. No muffled voice noted. Neck: Normal inspection. Neck supple. FROM. No adenopathy. Thyroid Normal. No meningeal signs. No neck mass noted. CVS: Normal heart rate and rhythm. Heart sound normal. No murmurs noted. Pulses normal throughout. Respiratory: No respiratory distress. Painless inspiration. Breath sounds normal. No wheezes/rales/rhonchi noted. Chest nontender. No accessory muscle usage noted or decreased air movement noted. Abdomen: Soft and nontender. Bowel sounds normal in all 4 quadrants. No distention noted. No organomegaly noted. No visible injury noted. Back: No CVA tenderness. Full range of motion noted. Skin: Skin warm and dry. Normal skin color. Normal skin turgor. No rashes/lesions/lacerations noted. Extremities: No lower extremity edema. Extremities exhibit normal range of motion. Extremities nontender. Neuro: Intoxicated with limited examination. Course Reevaluation(s) Reevaluation #1: Intoxicated unable to obtain history from the patient. Continue physician observation until patient is sober. Time: 02:29 Reevaluation #2: Patient now is AAO x3, ambulate in the emergency room with a steady gait, wants to catch the bus to go to home. No SI, no HI, no hallucination. Time: 05:44 Medical Decision Making Differential Diagnosis Differential Diagnoses: The differential diagnosis associated with the presentation includes (Alcohol use, substance use.) Admission/Observation Consideration of admission/observation: Escalation of care including admission/observation considered Lab Data MDM Lab Attestation statement: I reviewed the patient's lab results. 06/20/24 02:32 06/20/24 02:32 Labs: Lab Results 06/20/24 06/20/24 Range/Units 02:32 02:59 WBC 5.1 (4.8-10.8) X10*3/uL RBC 4.18 L (4.60-5.80) X10*6/uL Hgb 12.4 L (14.0-18.0) g/dl Hct 36.6 L (42.0-52.0) % MCV 87.6 (80.0-98.0) fL MCH 29.7 (27.0-33.0) pg MCHC 33.9 (31.0-36.0) g/dl RDW 13.2 (11.0-16.0) % Plt Count 173 D (160-400) X10*3/uL MPV 8.9 L (9.4-12.4) fL Immature Gran % (Auto) 0.4 (0.0-0.4) % Neut % (Auto) 48.4 (45-73) % Lymph % (Auto) 39.8 (20-40) % Reagan % (Auto) 7.5 (2-11) % Eos % (Auto) 3.3 (0-4) % Baso % (Auto) 0.6 (0-2) % Lymph # (Auto) 2.0 (1.2-4.9) X10*3/uL Reagan # (Auto) 0.4 (0.1-1.2) X10*3/uL Eos # (Auto) 0.2 (0.0-0.4) X10*3/uL Baso # (Auto) 0.0 (0.0-0.2) X10*3/uL Abs Immat Gran (auto) 0.02 (0.00-0.03) X10*3/uL Absolute Neuts (auto) 2.5 (2.0-8.3) x10*3/uL Absolute Nucleated RBC 0.000 (0.0-0.012) X10*3/uL Nucleated RBC % (auto) 0.0 (0.0-0.2) /100WBC Sodium 141 (135-145) mmol/L Potassium 3.7 (3.3-5.1) mmol/L Chloride 105 (96-108) mmol/L Carbon Dioxide 29 (22-29) mmol/L Anion Gap 11 L (12-20) BUN 15 (9-16) mg/dL Creatinine 0.87 (0.5-1.4) mg/dL Estim Creat Clear Calc 88.6 Estimated GFR > 60 Random Glucose 77 (60-115) mg/dL Calcium 8.9 (8.4-10.2) mg/dL Urine Opiates Screen Not Detected (Not Detect) Ur Buprenorphine Scrn Not Detected (Not Detect) ng/mL Ur Oxycodone Screen Not Detected (Not Detect) ng/mL Urine Methadone Screen Positive H (Not Detect) ng/mL Urine Fentanyl Screen POSITIVE H (Not Detect) Ur Barbiturates Screen Not Detected (Not Detect) Ur Phencyclidine Scrn Not Detected (Not Detect) Ur Amphetamines Screen Not Detected (Not Detect) U Benzodiazepines Scrn Not Detected (Not Detect) Urine Cocaine Screen POSITIVE H (Not Detect) U Marijuana (THC) Screen Not Detected (Not Detect) Ethyl Alcohol < 10 mg/dL Discharge Plan Discharge Clinical Impression: Polysubstance abuse, Acute alcohol intoxication Patient Disposition: Home, Self-Care Instructions: Polysubstance Abuse (ED) Prescriptions: No Action amoxicillin-pot clavulanate 875-125 mg tablet 1 tab PO BID 10 Days Qty: 20 0RF methadone [Methadone Intensol] 10 mg/mL Concentrate 205 mg PO DAILY Print Language: Kinyarwanda
[2024-06-20 02:33] VITALS: BP 110/77; PULSE 57; RESP 12; TEMP 36.4; O2SAT 98
[2024-06-20 02:38] LABS: Basophils Percent Auto 0.6 % (0-2); Eosinophils Absolute Auto 0.2 X10*3/uL (0.0-0.4); Eosinophils Percent Auto 3.3 % (0-4); Hematocrit 36.6 % (42.0-52.0); Hemoglobin 12.4 g/dl (14.0-18.0); Imm Gran Abs Auto 0.02 X10*3/uL (0.00-0.03); Imm Gran Pct Auto 0.4 % (0.0-0.4); Lymphocytes Percent Auto 39.8 % (20-40); MANUAL DIFF FLAG NO; Mean Corpuscular HGB Conc 33.9 g/dl (31.0-36.0); Mean Corpuscular Hemoglobin 29.7 pg (27.0-33.0); Mean Corpuscular Volume 87.6 fL (80.0-98.0); Mean Platelet Volume 8.9 fL (9.4-12.4); Monocytes Absolute Auto 0.4 X10*3/uL (0.1-1.2); Monocytes Percent Auto 7.5 % (2-11); Neutrophils Absolute Auto 2.5 x10*3/uL (2.0-8.3); Neutrophils Percent Auto 48.4 % (45-73); Platelet Count 173 X10*3/uL (160-400); Red Blood Count 4.18 X10*6/uL (4.60-5.80); Red Cell Distribution Width 13.2 % (11.0-16.0); White Blood Count 5.1 X10*3/uL (4.8-10.8)
[2024-06-20 02:50] LABS: Anion Gap 11 (12-20); Blood Urea Nitrogen 15 mg/dL (9-16); Calcium 8.9 mg/dL (8.4-10.2); Carbon Dioxide 29 mmol/L (22-29); Chloride 105 mmol/L (96-108); Creatinine Clr Calc Pharmacy 88.6; Estimated Glomerular Filt Rate > 60; Ethanol < 10 mg/dL; Glucose Random 77 mg/dL (60-115); Potassium 3.7 mmol/L (3.3-5.1); Sodium 141 mmol/L (135-145)
[2024-06-20 03:16] LABS: Amphetamine Screen Urine Not Detected (Not Detect); Barbiturates, Urine Not Detected (Not Detect); Benzodiazepines Screen Urine Not Detected (Not Detect); Buprenorphine Scr Not Detected (Not Detect); Cannabinoid Screen Urine Not Detected (Not Detect); Cocaine Screen Urine POSITIVE (Not Detect); Fentanyl, urine POSITIVE (Not Detect); Methadone Screen, Urine Positive (Not Detect); Opiate Screen Urine Not Detected (Not Detect); Oxycodone Screen Urine Not Detected (Not Detect); Phencyclidine Screen Urine Not Detected (Not Detect)
[2024-06-20 05:07] VITALS: BP 110/69; PULSE 56; RESP 9; TEMP 36.4; O2SAT 97
[2024-06-20 05:58] VITALS: BP 110/69; PULSE 56; RESP 9; TEMP 36.4; O2SAT 97
== END 2024-06-20 06:02 | disposition home or self-care (01) ==
PROVIDERS: Emergency Provider Emergency Medicine
DX: F19.10 Other psychoactive substance abuse, uncomplicated (principal); R41.82 Altered mental status, unspecified; F10.129 Alcohol abuse with intoxication, unspecified; Y90.9 Presence of alcohol in blood, level not specified
CPT/HCPCS: 36415; 80048; 80307; 85025; 93005; 99284

== ENCOUNTER → 2024-06-20 01:30 | Outpatient (BNV) | payer OTHER, SELFPAY | PROVIDERS: Emergency Provider Emergency Medicine; Visit Provider Internal Medicine | DX: R00.1 Bradycardia, unspecified (principal) | CPT/HCPCS: 93010 ==

== ENCOUNTER 2024-06-21 07:31 | Emergency (ER) | payer OTHER, SELFPAY ==
[2024-06-21 07:51] VITALS: BP 116/76; BP 116/88; PULSE 60; PULSE 67; RESP 16; TEMP 36.6; O2SAT 97; BMI 20.9
--- NOTE | 2024-06-21 08:05 | ED_ITS ---
HPI - General Adult General Chief complaint: General Medical Stated complaint: TIRED,INTOX FROM METHADONE CL,ADMITS HEROIN/KLONOP Time Seen by Provider: 06/21/24 08:05 History of Present Illness ED Provider: Mariela KIMBLE narrative: The patient is a 54-year-old male with a history of opioid use disorder who receives methadone from the in methadone clinic in [place]. He normally receives 205 mg of methadone daily. Apparently he showed up with the clinic today and they felt he was drowsy and so sent him to the emergency room by ambulance. The patient here was upset that he was sent here and says it was a mistake. He says that he had not used any heroin but that he had taken some clonazepam and this is why he was drowsy. The patient told me that he missed his methadone dose yesterday because he had not made it to the clinic on time but he was sent with a last dose document from the clinic that shows he received his last dose yesterday on June 20 at 7:25 AM. The patient does not have any medical complaints except that he is upset that was brought here and that he was drowsy this morning. Related Data Home Medications ?Medication ?Instructions ?Recorded ?Confirmed methadone 10 mg/mL oral 205 mg PO DAILY 05/25/24 05/25/24 concentrate (Methadone Intensol) Previous Rx's ?Medication ?Instructions ?Recorded amoxicillin 875 mg-potassium 1 tab PO BID 10 days #20 tabs 04/30/21 clavulanate 125 mg tablet Allergies Allergy/AdvReac Type Severity Reaction Status Date / Time No Known Allergies Allergy Verified 06/21/24 07:54 Review of Systems Review of Systems: Yes all other systems are reviewed and are negative [facility] Past Medical History Medical History Polysubstance abuse Acute alcohol intoxication Social History Social History Unable to assess alcohol history related to: Unable to respond Alcohol intake: current Alcohol intake frequency: 3 or more drinks per day Alcohol type: beer Patient Tobacco Use Status: Never used Tobacco Smoked in Last 30 Days: Yes Use of substances other than those prescribed or required for medical reasons: Yes Substance Use Type: Other Advance Directives: No Advance Directives Information Provided: Yes Do you have a plan to hurt others: No Plan Physical Exam ED Vital Signs: Vital Signs - 24 hr 06/21/24 07:51 06/21/24 08:52 Temperature 97.8 F 97.2 F Pulse Rate 67 61 Respiratory Rate 16 16 Blood Pressure 116/76 101/68 Pulse Oximetry 97 94 Oxygen Delivery Method Room Air Room Air BMI result Body Mass Index 20.9 Const Other: The patient is awake and alert. He was cranky and foul mouthed. HENMT Other: Face is symmetrical, mucous membranes moist, airway clear Eyes General: appearance normal, both eyes and all related structures Neck Neck: Yes full ROM Resp Effort & Inspection: normal respiratory effort Auscultation: clear to auscultation bilaterally Cardio Rate: regular rate Rhythm: regular rhythm Heart sounds: S1 normal heart sound present and S2 normal heart sound present GI Other: Abdomen is flat, soft, nontender Skin Other: Skin is dry and unremarkable Neuro Other: The patient is awake and alert. Face is symmetrical. Speech is clear. He moves his extremities symmetrically. Gait is steady. Extrem Other: No peripheral edema Medical Decision Making Medical Decision Making MDM Narrative: The patient is a 54-year-old male on methadone who was sent here from the [facility] methadone cleaned this this morning after not giving him his usual methadone dose. Apparently staff was concerned that he had seemed too drowsy to receive his methadone. The patient tells me that he had walked from his apartment to the methadone clinic this morning. The patient said that he had taken some Klonopin, not heroin, and that he therefore should have been given his methadone. He has no medical complaints and does not want any workup here in the emergency room. When I told him that we will be discharging him he objected that he had not received his methadone dose yesterday either because he had gotten to the clinic too late. However he was sent here with paperwork from the clinic indicating he had received his yesterday's dose. When confronted with this the patient admitted he had received yesterday's dose. He was discharged without any methadone today. He should go to his clinic tomorrow. Discharge Plan Discharge Clinical Impression: Substance use disorder Patient Disposition: Home, Self-Care Additional Instructions: You missed your methadone dose at the methadone clinic today because you seemed drowsy. This may be because you took Klonopin. In order to receive your normal dose tomorrow you should not take any intoxicating substances or other drugs that might make you drowsy tomorrow morning. Please follow up with your regular doctor. Prescriptions: No Action amoxicillin-pot clavulanate 875-125 mg tablet 1 tab PO BID 10 Days Qty: 20 0RF methadone [Methadone Intensol] 10 mg/mL Concentrate 205 mg PO DAILY Interventions: ED Discharge Assessment Last Done: 06/21/24 08:52 Discharge Date/Time: 06/21/24 09:04 Print Language: Bhutanese
--- NOTE | 2024-06-21 08:08 | PC.NURSE ---
belongings in [facility] per security. pt had a olea, cell phone (no emergency physician) and his wallet with ID in it.
--- OUTSIDE RECORDS SUMMARY | 2024-06-21 08:09 | XMS_ITS | Clinical Summary ---
Author Organization [facility] it[facility] Address [address] [place] [address] Care Team Providers Care Range Ecologist Name Role Phone Unavailable Primary Care Provider [...] Td Vaccines (1 - Tdap) 05/15/1987 Hepatitis B Vaccines (1 of 3 - 19+ 3-dose series) 05/15/1987 Pneumococcal Vaccine: 50+ Ye ars (1 of 1 - PCV) 2018 Zoster Vaccines (1 of 2) 2018 Cholesterol Screening (Lipid Panel) 01/31/2022 Colorectal Cancer Screening: Colonoscopy 01/31/2022 Depression Screening 01/31/2022 HIV Screening 01/31/2022 Hepatitis C Screening 01/31/2022 Social Influencers of Health Screening 01/31/2022 COVID-19 Vaccine (1 - 2023-2 5 season) 2023 Influenza Vaccine (Season Ended) 2024 HIB Vaccines Aged Out No longer eligi ble based on patient's age to complete this topic HPV Vaccines Aged Out No longer eligi ble based on patient's age to complete this topic Hepatitis A Vaccines Aged Out No long er eligible based on patient's age to complete this topic IPV Vaccines Aged Out No longer eligi ble based on patient's age to complete this topic MMR Vaccines Aged Out No longer eligi ble based on patient's age to complete this topic Meningococcal ACWY Vaccine Aged Out N o longer eligible based on patient's age to complete this topic Meningococcal B Vaccine Aged Out No l onger eligible based on patient's age to complete [...]
[2024-06-21 08:52] VITALS: BP 101/68; PULSE 61; RESP 16; TEMP 36.2; O2SAT 94
--- NOTE | 2024-06-21 08:54 | PC.NURSE ---
pt a&ox3, ambulatory with steady gait, pt has been yelling that he wants to discharge from the facility, pt did NOT get a dose of methadone while here, he is discharging to home without dosage here, he was directed by the provider to return to the clinic or wait until tomm and refrain from showing up to the clinic drowsy so he is able to get his dose.
== END 2024-06-21 09:04 | disposition home or self-care (01) ==
PROVIDERS: Emergency Provider Emergency Medicine
DX: F19.10 Other psychoactive substance abuse, uncomplicated (principal)
CPT/HCPCS: 99282; 99284

== ENCOUNTER 2024-06-24 10:23 | Emergency (ER) | payer OTHER, SELFPAY ==
[2024-06-24 10:38] VITALS: BP 97/68; PULSE 89; RESP 18; TEMP 36.6; O2SAT 97; BMI 21.6
--- NOTE | 2024-06-24 13:52 | ED.WOUNDLAC ---
HPI - Wound/Laceration General Chief Complaint: Wound/Laceration Stated Complaint: lac on arm? Time Seen by Provider: 06/24/24 13:47 Source: patient Mode of arrival: ambulatory Limitations: no limitations History of Present Illness ED Provider: Gali Hyatt NP HPI narrative: Patient is a 54-year-old male who presents emergency department for evaluation requesting staple removal from laceration on the right arm that was placed 14 days ago. On review of medical record he was seen in this emergency department 06/11/2024, tetanus vaccination was updated at that time, multiple lacerations were addressed, 1 of which resulted in 11 betty, 2nd resulting in 4 betty. Related Data Home Medications ?Medication ?Instructions ?Recorded ?Confirmed methadone 10 mg/mL oral 205 mg PO DAILY 05/25/24 05/25/24 concentrate (Methadone Intensol) Previous Rx's ?Medication ?Instructions ?Recorded amoxicillin 875 mg-potassium 1 tab PO BID 10 days #20 tabs 04/30/21 clavulanate 125 mg tablet Allergies Allergy/AdvReac Type Severity Reaction Status Date / Time No Known Allergies Allergy Verified 06/24/24 10:40 Review of Systems Review of Systems: Yes all other systems are reviewed and are negative PMFSH Past Medical History Attestation statement: The following information was validated with the patient. Medical History Polysubstance abuse Acute alcohol intoxication Social History Social History Unable to assess alcohol history related to: Unable to respond Alcohol intake: current Alcohol intake frequency: 3 or more drinks per day Alcohol type: beer Patient Tobacco Use Status: Never used Tobacco Substance Use Type: Other Physical Exam Vital Signs: Vital Signs: Last Vital Signs Temp 98 F 06/24/24 10:38 Pulse 89 06/24/24 10:38 Resp 18 06/24/24 10:38 BP 97/68 06/24/24 10:38 Pulse Ox 97 06/24/24 10:38 O2 Del Method Room Air 06/24/24 10:38 BMI result Body Mass Index 21.6 Appearance: Alert.?Oriented to person, place and time. No acute distress.?Normal affect..?? CVS: Heart sounds normal. Normal heart rate and rhythm.? Pulses normal.?? Respiratory: No respiratory distress.? Lung sounds clear to auscultation bilaterally?? Skin: Skin warm and dry.? Normal skin color.? Extremities: No lower extremity edema.? Right forearm lacerations well healed, sutures intact without erythema warmth or pus-like drainage Neuro: Moves all extremities spontaneously. Sensation intact bilaterally. Ambulates with normal steady gait. Medical Decision Making Medical Decision Making MDM Narrative: Patient is a 54-year-old male who presents emergency department for evaluation requesting staple removal from laceration on the right arm that was placed 14 days ago. On review of medical record he was seen in this emergency department 06/11/2024, tetanus vaccination was updated at that time, multiple lacerations were addressed, 1 of which resulted in 11 betty, 2nd resulting in 4 betty. All betty were removed without complication. No signs of infection abscess or cellulitis. Stable for discharge home Differential Diagnosis Differential Diagnoses: The differential diagnosis associated with the presentation includes (See narrative above) External Record Review External record reviewed: Outpatient record Discharge Plan Discharge Clinical Impression: Laceration of forearm Patient Disposition: Home, Self-Care Instructions: Laceration (ED) Additional Instructions: You were evaluated in the emergency department for removal of the betty from your laceration sustained on 06/11/2024. These were removed without complication. Follow-up with your primary care doctor as needed. Prescriptions: No Action amoxicillin-pot clavulanate 875-125 mg tablet 1 tab PO BID 10 Days Qty: 20 0RF methadone [Methadone Intensol] 10 mg/mL Concentrate 205 mg PO DAILY Referrals: Physician,Unknown J [Physician] - Print Language: Japanese
[2024-06-24 14:10] VITALS: BP 114/71; PULSE 61; RESP 16; TEMP 36.2; O2SAT 99
--- NOTE | 2024-06-24 14:11 | PC.NURSE ---
Patient presents for staple removal to right wrist after losing his keys and smashing a window to get into his apartment. Dressing removed and betty intact with sl redness but no drainage noted.
[2024-06-24 14:36] VITALS: BP 114/71; PULSE 61; RESP 16; TEMP 36.2; O2SAT 99
== END 2024-06-24 14:37 | disposition home or self-care (01) ==
PROVIDERS: Emergency Provider Emergency Medicine; PCP Internal Medicine
DX: Z48.02 Encounter for removal of sutures (principal)
CPT/HCPCS: 99284

== ENCOUNTER 2024-07-26 22:12 | Emergency (ER) | payer OTHER, SELFPAY ==
--- NOTE | 2024-07-26 | ECG_ITS ---
Test Reason : OD Blood Pressure : */* mmHG Vent. Rate : 53 BPM Atrial Rate : 53 BPM P-R Int : 130 ms QRS Dur : 90 ms QT Int : 442 ms P-R-T Axes : 48 59 43 degrees QTcB Int : 414 ms Sinus bradycardia Nonspecific T wave abnormality Abnormal ECG When compared with ECG of 20-Jun-2024 01:30, No significant change was found Referred By: Generic ED Physician Electronically Signed By: DONNA HUMPHREY MD
--- NOTE | ~2024-07-26 | CT_ITS ---
CLINICAL HISTORY: found unresponsive CT Head without contrast. CT angiography head and neck with contrast. 3D Postprocessing. Comparison: None Findings: HEAD CT: No intra-axial mass, midline shift, hydrocephalus, or acute hemorrhage. No significant atrophy-like change or white matter disease. There is no sinus or mastoid fluid. The orbits are unremarkable. There is no acute fracture. HEAD AND NECK CTA: Aortic arch and cervical great vessels are patent. Intracranial arteries are patent. No aneurysm, dissection, or occlusion. No abnormal intracranial enhancement. The visualized thyroid gland is unremarkable. No cervical mass or fluid collection. Mild dependent atelectasis in the upper lungs. No acute fracture. IMPRESSION: 1. Unremarkable head CT. 2. Patent head and neck CTA. This document has been electronically signed by: Jerardo Sexton MD on 07/27/2024 01:16:36
[2024-07-26 22:18] VITALS: BP 149/87; BP 152/87; PULSE 60; PULSE 89; RESP 15; TEMP 36.9; O2SAT 100; O2SAT 98; BMI 34.4
--- NOTE | 2024-07-26 22:35 | PC.NURSE ---
pt biba from the street, alert but not oriented. pt found down by PD, unresponsive, possible opiate overdose. pt was given 4mg of nasal narcan. at this time, pt maintaining own airway but not answering questions. unknown si/hi and unknown substance. pt changed over by securities, belongings placed in closet. nsr on tele.
[2024-07-26 23:02] LABS: Basophils Percent Auto 0.9 % (0-2); Eosinophils Absolute Auto 0.1 X10*3/uL (0.0-0.4); Eosinophils Percent Auto 1.1 % (0-4); Hematocrit 39.5 % (42.0-52.0); Hemoglobin 13.2 g/dl (14.0-18.0); Imm Gran Abs Auto 0.02 X10*3/uL (0.00-0.03); Imm Gran Pct Auto 0.4 % (0.0-0.4); Lymphocytes Absolute Auto 1.6 X10*3/uL (1.2-4.9); Lymphocytes Percent Auto 34.7 % (20-40); MANUAL DIFF FLAG SCAN; Mean Corpuscular HGB Conc 33.4 g/dl (31.0-36.0); Mean Corpuscular Hemoglobin 29.7 pg (27.0-33.0); Mean Corpuscular Volume 88.8 fL (80.0-98.0); Mean Platelet Volume 10.8 fL (9.4-12.4); Monocytes Absolute Auto 0.4 X10*3/uL (0.1-1.2); Neutrophils Absolute Auto 2.5 x10*3/uL (2.0-8.3); Neutrophils Percent Auto 54.9 % (45-73); PLT CLUMP 1; Red Blood Count 4.45 X10*6/uL (4.60-5.80); Red Cell Distribution Width 13.6 % (11.0-16.0); SCAN SMEAR FLAG 1
[2024-07-26 23:32] LABS: Platelet Count 37 X10*3/uL (160-400); White Blood Count 4.5 X10*3/uL (4.8-10.8)
[2024-07-26 23:33] LABS: SLIDE REVIEW VERIFIED
[2024-07-26 23:36] LABS: Alanine Aminotransferase 11 U/L (0-40); Albumin Level 4.5 g/dL (3.5-5.0); Alkaline Phosphatase 83 U/L (39-117); Anion Gap 16 (12-20); Aspartate Amino Transferase 23 U/L (5-37); Bilirubin Total 0.4 mg/dL (0.0-1.0); Blood Urea Nitrogen 21 mg/dL (9-16); Calcium 9.6 mg/dL (8.4-10.2); Carbon Dioxide 24 mmol/L (22-29); Chloride 110 mmol/L (96-108); Estimated Glomerular Filt Rate > 60; Ethanol < 10 mg/dL; Glucose Random 74 mg/dL (60-115); Potassium 4.7 mmol/L (3.3-5.1); Sodium 145 mmol/L (135-145); Total Protein 7.5 g/dL (6.5-8.0)
--- NOTE | 2024-07-26 23:46 | ED_ITS ---
HPI - Overdose General Chief Complaint: Overdose Stated Complaint: psych paranoia, unsure of substance pd onboard Time Seen by Provider: 07/26/24 23:42 Source: EMS Mode of arrival: EMS Limitations: other History of Present Illness ED Provider: Dr. Ysabel Burris HPI Narrative: Patient comes to the emergency room via ambulance. According to EMS, patient was found unresponsive by police department, possible opiate overdose, patient was given 4 mg of Narcan, patient arrived awake but not answering any questions. Patient has been seen multiple times in the emergency room for opiate overdose. Patient known to use methadone fentanyl and cocaine, usually patient does not drink alcohol. Related Data Home Medications ?Medication ?Instructions ?Recorded ?Confirmed methadone 10 mg/mL oral 205 mg PO DAILY 05/25/24 05/25/24 concentrate (Methadone Intensol) Previous Rx's ?Medication ?Instructions ?Recorded amoxicillin 875 mg-potassium 1 tab PO BID 10 days #20 tabs 04/30/21 clavulanate 125 mg tablet Allergies Allergy/AdvReac Type Severity Reaction Status Date / Time No Known Allergies Allergy Verified 07/26/24 22:22 Review of Systems 2 Review of Systems: Yes Other (Patient not answering any questions) FOR[facility]LY [facility], [facility] Past Medical History Medical History Polysubstance abuse Acute alcohol intoxication Social History Social History Unable to assess alcohol history related to: Unable to respond Alcohol intake: current Alcohol intake frequency: 3 or more drinks per day Alcohol type: beer Patient Tobacco Use Status: Never used Tobacco Substance Use Type: Other Advance Directives: No Advance Directives Information Provided: No Do you have a plan to hurt others: No Plan Physical Exam 2 Vital Signs: Vital Signs: Last Vital Signs Temp 97 F 07/27/24 05:08 Pulse 62 07/27/24 05:08 Resp 16 07/27/24 05:08 BP 95/54 L 07/27/24 05:08 Pulse Ox 100 07/27/24 05:08 O2 Del Method Room Air 07/27/24 05:08 BMI result Body Mass Index 34.4 Const: Other: Appearance: Alert. No acute distress. No answering any questions Eyes: Pupils equal, round and reactive to light. ENT: Pharynx normal. Neck: Normal inspection. Neck supple. No lymph nodes noted. No crepitus CVS: Normal heart rate and rhythm. Pulses normal. Normal S1 and S2 Respiratory: No respiratory distress. Breath sounds normal. No Wheezing. No rales Abdomen: Soft and nontender. No rigidity. No distention. Skin: Skin warm and dry. Normal skin color. Normal skin turgor. Extremities: No lower extremity edema. No Lacerations. No Rash Neuro: Cranial nerves 2-12 grossly intact Psych: calm, not answering any questions Course Course Course Narrative: Patient is not answering any questions, awake, alert, vitals stable All of patient's labs and imaging pending Medications Administered Discontinued Medications Generic Name Dose Route Start Last Admin Trade Name Frehortensia PRN Reason Stop Dose Admin Iohexol 65 ml 07/27/24 00:14 07/27/24 00:14 Iohexol 350 Mg/Ml 100 Ml Infus..Btl IV 07/27/24 00:15 65 ml ONCE ONE Administration Medical Decision Making Medical Decision Making [facility] Narrative: My interpretation of labs: No significant abnormality in patient's hematology and chemistry, ETOH negative Urine toxicology pending Head and neck CT did not show any acute abnormality Patient is sleeping, wakes up and falls back asleep. Vitals remained stable Plan: Metabolize to freedom and assess for SI, HI and willingness to detox Patient is under physician observation, starting at 01:24 At 07:23, patient is awake, alert and oriented x3, ambulatory with steady gait. Patient states he feels much better and back to baseline. Patient feels ready to be discharged home. Patient was discharged with p.r.n. home Narcan Patient states that he is on his way to the methadone clinic, patient states that he is trying to stay clean At this time, 723 a.m., physician observation was discontinued Differential Diagnosis Differential Diagnoses: The differential diagnosis associated with the presentation includes (Polysubstance abuse, drug overdose, fall) Admission/Observation Consideration of admission/observation: Escalation of care including admission/observation considered (Given patient's presentation and history, observation was considered) Lab Data [facility] Lab Attestation statement: I reviewed the patient's lab results. 07/26/24 22:49 07/26/24 23:14 Labs: Lab Results 07/26/24 07/26/24 07/27/24 Range/Units 22:49 23:14 04:18 WBC 4.5 L (4.8-10.8) X10*3/uL RBC 4.45 L (4.60-5.80) X10*6/uL Hgb 13.2 L (14.0-18.0) g/dl Hct 39.5 L (42.0-52.0) % MCV 88.8 (80.0-98.0) fL MCH 29.7 (27.0-33.0) pg MCHC 33.4 (31.0-36.0) g/dl RDW 13.6 (11.0-16.0) % Plt Count 37 L D (160-400) X10*3/uL MPV 10.8 (9.4-12.4) fL Immature Gran % (Auto) 0.4 (0.0-0.4) % Neut % (Auto) 54.9 (45-73) % Lymph % (Auto) 34.7 (20-40) % [place] % (Auto) 8.0 (2-11) % Eos % (Auto) 1.1 (0-4) % Baso % (Auto) 0.9 (0-2) % Lymph # (Auto) 1.6 (1.2-4.9) X10*3/uL [place] # (Auto) 0.4 (0.1-1.2) X10*3/uL Eos # (Auto) 0.1 (0.0-0.4) X10*3/uL Baso # (Auto) 0.0 (0.0-0.2) X10*3/uL Abs Immat Gran (auto) 0.02 (0.00-0.03) X10*3/uL Absolute Neuts (auto) 2.5 (2.0-8.3) x10*3/uL Absolute Nucleated RBC 0.000 (0.0-0.012) X10*3/uL Nucleated RBC % (auto) 0.0 (0.0-0.2) /100WBC Smear Tech's Comments VERIFIED Sodium 145 (135-145) mmol/L Potassium 4.7 D (3.3-5.1) mmol/L Chloride 110 H (96-108) mmol/L Carbon Dioxide 24 (22-29) mmol/L Anion Gap 16 (12-20) BUN 21 H (9-16) mg/dL Creatinine 1.22 (0.5-1.4) mg/dL Estim Creat Clear Calc 76.0 Estimated GFR > 60 Random Glucose 74 (60-115) mg/dL Calcium 9.6 D (8.4-10.2) mg/dL Total Bilirubin 0.4 (0.0-1.0) mg/dL AST 23 (5-37) U/L ALT 11 (0-40) U/L Alkaline Phosphatase 83 (39-117) U/L Total Protein 7.5 (6.5-8.0) g/dL Albumin 4.5 (3.5-5.0) g/dL Urine Opiates Screen Not Detected (Not Detect) Ur Buprenorphine Scrn Not Detected (Not Detect) ng/mL Ur Oxycodone Screen Not Detected (Not Detect) ng/mL Urine Methadone Screen Positive H (Not Detect) ng/mL Urine Fentanyl Screen POSITIVE H (Not Detect) Ur Barbiturates Screen Not Detected (Not Detect) Ur Phencyclidine Scrn Not Detected (Not Detect) Ur Amphetamines Screen Not Detected (Not Detect) U Benzodiazepines Scrn POSITIVE H (Not Detect) Urine Cocaine Screen POSITIVE H (Not Detect) U Marijuana (THC) Screen POSITIVE H (Not Detect) Ethyl Alcohol < 10 mg/dL Independent Interpretation I performed an independent interpretation of an: CT Scan Radiology Impression Discussion of test interpretation with radiology: I have reviewed the radiologist's reading. Radiologist Impression: HEAD CT: No intra-axial mass, midline shift, hydrocephalus, or acute hemorrhage. No significant atrophy-like change or white matter disease. There is no sinus or mastoid fluid. The orbits are unremarkable. There is no acute fracture. HEAD AND NECK CTA: Aortic arch and cervical great vessels are patent. Intracranial arteries are patent. No aneurysm, dissection, or occlusion. No abnormal intracranial enhancement. The visualized thyroid gland is unremarkable. No cervical mass or fluid collection. Mild dependent atelectasis in the upper lungs. No acute fracture. IMPRESSION: 1. Unremarkable head CT. 2. Patent head and neck CTA Critical Care Time Critical Care Time Critical Care Time: Yes Total Critical Care Time: 35 Attestation: I have personally provided critical care time. Time includes review of lab data, radiology results, discussion with consultants, and monitoring for potential decompensation. Intervention performed as documented. Discharge Plan Discharge Clinical Impression: Drug overdose Patient Disposition: Home, Self-Care Instructions: Adult Overdose (ED) Additional Instructions: Overdose You were seen in our Emergency Department for an overdose today. You received narcan in order to reverse the effects of overdose. Narcan only lasts about 45 min to 1 hour in the system. You may have been given narcan to take home with you today, please keep it near you if you are going to use again, so others can use it if needed.? The number one risk for fatal overdose is using alone? [employer] is a 20/09 hotline where you can be on the phone with someone while you use, and they can call for help if they suspect an overdose: [phone] Things to look out for when you leave include severe vomiting or diarrhea, headaches, muscle cramps, fever, coughing, chest pain, or if you feel so short of breath you cannot walk to the bathroom. Please seek care and return any time for worsening symptoms.? You may have been provided with safer injection?items, please take time to take care of YOU and your health. Use new supplies whenever possible to lessen the chances of infections and other illnesses.? If you need more supplies, please go [facility],? [address] [place] [address] OR you can call or text to coordinate delivery of safer supplies. If you decide you want to stop or cut down on how much you?re using, please call the numbers on the list provided to you or you can come to our outpatient Addiction Treatment office [facility] (M-F 9am-5p) [address] [place] [address], [address] [place], [place]. [phone] Prescriptions: No Action amoxicillin-pot clavulanate 875-125 mg tablet 1 tab PO BID 10 Days Qty: 20 0RF methadone [Methadone Intensol] 10 mg/mL Concentrate 205 mg PO DAILY Print Language: Bulgarian
--- NOTE | 2024-07-26 23:56 | PC.NURSE ---
20g placed in right ac, pt to ct at this time
[2024-07-27] MEDS: iohexoL 350 MG/ML 100 ML INFUS..BTL 65 ML IV (00:14)
[2024-07-27 00:53] VITALS: BP 122/47; PULSE 72; RESP 18; O2SAT 94
--- NOTE | 2024-07-27 04:16 | PC.NURSE ---
pt awake and alert at this time, ambulatory to bathroom with steady gait. pt provided urine sample at this time. pt states he used crack and a little dope . denies si/hi states he used for fun
[2024-07-27 04:35] LABS: Amphetamine Screen Urine Not Detected (Not Detect); Barbiturates, Urine Not Detected (Not Detect); Benzodiazepines Screen Urine POSITIVE (Not Detect); Buprenorphine Scr Not Detected (Not Detect); Cannabinoid Screen Urine POSITIVE (Not Detect); Cocaine Screen Urine POSITIVE (Not Detect); Fentanyl, urine POSITIVE (Not Detect); Methadone Screen, Urine Positive (Not Detect); Opiate Screen Urine Not Detected (Not Detect); Oxycodone Screen Urine Not Detected (Not Detect); Phencyclidine Screen Urine Not Detected (Not Detect)
[2024-07-27 05:08] VITALS: BP 95/54; PULSE 62; RESP 16; TEMP 36.1; O2SAT 100
--- NOTE | 2024-07-27 07:08 | PC.NURSE ---
provided patient with orange juice and coffee. patient states he is not ready to go to detox just yet that he still has some things to get done at home.
[2024-07-27] MEDS: Naloxone HCl Nasal TAKE HOME 4 MG SPRAY 8 MG NOSTRILALT (07:32)
[2024-07-27 07:34] VITALS: BP 119/73; PULSE 64; RESP 16; TEMP 36.6; O2SAT 97
== END 2024-07-27 07:40 | disposition home or self-care (01) ==
PROVIDERS: Emergency Provider Emergency Medicine; PCP Internal Medicine
DX: T65.91XA Toxic effect of unspecified substance, accidental (unintentional), initial encounter (principal); R40.4 Transient alteration of awareness; Y92.9 Unspecified place or not applicable
CPT/HCPCS: 36415; 70496; 70498; 80053; 80307; 85025; 93005; 99284; 99285; Q9967

== ENCOUNTER → 2024-07-26 22:36 | Outpatient (BNV) | payer OTHER, SELFPAY | PROVIDERS: Emergency Provider Emergency Medicine; PCP Internal Medicine; Visit Provider Internal Medicine Cardiovascular Disease | DX: R00.1 Bradycardia, unspecified (principal) | CPT/HCPCS: 93010 ==

== ENCOUNTER → 2024-07-27 | Outpatient (BNV) | payer OTHER, SELFPAY | PROVIDERS: Emergency Provider Emergency Medicine; Visit Provider Radiology Diagnostic Radiology | DX: R40.20 Unspecified coma (principal) | CPT/HCPCS: 70496; 70498 ==